=== PATIENT | female | born 1985 | race Caucasian/White ===

== ENCOUNTER 2022-08-17 16:29 | Emergency (ER) | payer BC, SELFPAY ==
[2022-08-17 16:34] VITALS: BP 120/75; PULSE 72; RESP 16; TEMP 35.8; O2SAT 98; BMI 29.8
[2022-08-17 18:11] VITALS: BP 128/95; O2SAT 98
--- NOTE | 2022-08-17 18:17 | CRLHL7_ITS ---
For Patients: As a result of the Century Cures Act, medical imaging exams and procedure reports are released immediately into your electronic medical record. You may view this report before your referring provider. If you have questions, please contact your health care provider. INDICATION: Lower back pain for 1 month. TECHNIQUE: CT lumbar spine without contrast. COMPARISON: None available. FINDINGS: Vertebrae: Mild age-indeterminate anterior wedge compression fracture of L1. Mild multilevel endplate degenerative changes. No evidence of traumatic malalignment. Discs and facet joints: Mild broad-based disc bulges at L3-L4, L4-L5, and L5-S1, results in mild central canal stenosis. Anatomic alignment of the bilateral facet joints. Extraspinal findings: Cholecystectomy. Duplicated IVC is noted. Normal appendix. IMPRESSION: 1. Age-indeterminate mild anterior wedge compression fracture of L1. 2. Mild broad-based disc bulges at L3-L4, L4-L5, and L5-S1, results in mild central canal stenosis. Please note that all CT scans at this facility use dose modulation, iterative reconstruction, and/or weight-based dosing when appropriate to reduce radiation dose to as low as reasonably achievable. Dictated by Anca Ricketts MD @ 08/17/2022 7:06:00 PM (Electronically Signed)
--- NOTE | 2022-08-17 18:28 | ED_ITS ---
HPI - General Adult General Date Seen: 08/17/22 Chief complaint: Back Injury/Pain Stated complaint: Really bad low back pain Time Seen by Provider: 08/17/22 18:07 Source: patient History of Present Illness HPI narrative: Patient is a 37-year-old woman who comes in for evaluation of low back pain which she says started about a month ago. She says she just woke up with it 1 day. It has been persistent since then, although she says she has days where her back does not hurt. She denies any injury. It really does not hurt any worse with specific movements, but it does feel better sitting than walking around. She says that she wakes up with moderate to severe pain every morning, she takes ibuprofen and Tylenol every morning. It feels a little bit better during the day but by nighttime she says it is severe again. It does not wake her up overnight however. She was seen once in urgent care and she says they told her it was probably a tailbone injury, but she denies any history of trauma. It is not really her tailbone area that is hurting, it is just above that in the low lumbar region. She denies any radiating pain. She has not had any abdominal pain, nausea, vomiting, fevers, or night sweats. She does note that she has lost some weight unintentionally, she says she is down a size and other people have told her they have noticed weight loss. She says she has a little ?paranoid because her aunt had back pain and was subsequently diagnosed with lymphoma. Related Data Home Medications Medication Instructions Recorded Confirmed No Known Home Medications 08/17/22 08/17/22 Allergies Allergy/AdvReac Type Severity Reaction Status Date / Time nitrofurantoin Allergy Mild hands and Verified 08/17/22 16:39 [From Macrobid] feet itchy and painful Review of Systems Status of ROS: Reports: 10 or more systems reviewed and unremarkable except as noted in History and below and 6 or more systems reviewed and unremarkable except as noted in History and below PFSH PFS Social History Smoking Status: Current every day smoker Do you use any of these nicotine containing products: None How often do you have a drink containing alcohol: never How often do you have six or more drinks on one occasion: Never AUDIT-C Alcohol total score: 0 Non-prescribed substance use: denies use Exam Narrative: Exam Narrative: Vital signs as noted above. In general, an alert, well-appearing patient. Head: Normocephalic, atraumatic. Eyes: Pupils are equal reactive. Extraocular movements are full. Conjunctivae are normal. ENT: Mucous membranes are moist. Throat is normal. Neck: Supple without lymphadenopathy. Heart: Regular rate and rhythm. No murmur or rub. Lungs: Clear bilaterally. No increased work of breathing, crackles or wheezes. Abdomen: Soft and nontender. No organomegaly. Back: Nontender to palpation. Extremities: Well perfused. No edema. No calf tenderness. Pulses intact. Neurologic: Patient is alert and oriented to person and place. Speech is f luent. Face is symmetric. Moves all extremities equally. Affect: Normal. Skin: Warm and dry. Well perfused. Const: Vital Signs, click to edit/add: Vital Signs - 24 hr 08/17/22 16:34 08/17/22 18:11 08/17/22 19:27 Temperature 96.5 F L Pulse Rate [Right Pulse Oximeter] 72 75 Respiratory Rate 16 Blood Pressure [Ri ght Upper Arm] 120/75 128/95 H 132/87 Pulse Oximetry 98 98 98 Oxygen Delivery Me thod Room Air Room Air Room Air Documenting provider has reviewed patient's vital signs: yes Course Course Hospital Course: Patient's exam is benign. Given duration of symptoms, reported weight loss and her concerns regarding her family history, I have elected to do a CT scan to rule out any suspicious bony lesions. Have discussed with her in the absence of findings on CT, this certainly could just be benign low back pain. It does not sound radicular at all, my suspicion for disc herniation is rather low, certainly nothing to suggest an infectious process. CT read by Radiology as follows: 1. Age-indeterminate mild anterior wedge compression fracture of L1. 2. Mild broad-based disc bulges at L3-L4, L4-L5, and L5-S1, results in mild central canal stenosis. Patient does say that she had an MRI couple of years ago and had disc bulges at that time, hard to know whether these are entirely stable but I doubt these are causing her symptoms. The compression fracture at L1 is age determinate and I have discussed with her that it is certainly possible this is the cause of her symptoms but without knowing when this occurred it is impossible to know for sure. Nonetheless, I have reassured her there is nothing on CT to suggest a more ominous cause for her back pain. For now she can continue with ibuprofen and Tylenol. Given the compression fracture I did recommend that she follow up with her primary doctor for recheck, discussion of further options for pain management, and to see whether not she needs any evaluation given compression fracture at a relatively young age in the absence of trauma. Vital Signs Vital signs: Initial Vital Signs Temperature 96.5 F L 08/17/22 16:34 Temperature Source Temporal Artery Scan 08/17/22 16:34 Pulse Rate 72 08/17/22 16:34 Respiratory Rate 16 08/17/22 16:34 Blood Pressure 120/75 08/17/22 16:34 Blood Pressure Mean 90 08/17/22 16:34 Blood Pressure Position Sitting 08/17/22 16:34 Pulse Oximetry 98 08/17/22 16:34 Oxygen Delivery Method 08/17/22 16:34 Vital Signs Temperature 96.5 F L 08/17/22 16:34 Pulse Rate 72 08/17/22 16:34 Respiratory Rate 16 08/17/22 16:34 Blood Pressure 120/75 08/17/22 16:34 Pulse Oximetry 98 08/17/22 16:34 Oxygen Delivery Method 08/17/22 16:34 Temperature 96.5 F L 08/17/22 16:34 Pulse Rate 75 08/17/22 19:27 Respiratory Rate 16 08/17/22 16:34 Blood Pressure 132/87 08/17/22 19:27 Pulse Oximetry 98 08/17/22 19:27 Oxygen Delivery Method 08/17/22 19:27 Discharge Plan Discharge Clinical Impression: Closed wedge compression fracture of L1 vertebra, Back pain Patient Disposition: Home, Self-Care Condition: Stable Instructions: Vertebral Compression Fracture (ED), Back Pain (ED) Additional Instructions: Recommend follow-up with primary care to discuss pain management options as well as any further evaluation needed. Ibuprofen 400 mg plus Tylenol 1000 mg 3 times daily as needed for pain. Ice as needed. Prescriptions: No Action No Known Home Medications Follow Up/Referrals: Brenda Belle PA-C [Primary Care Provider] - Stand Alone Forms: [employer] Info Instructions
[2022-08-17 19:27] VITALS: BP 132/87; PULSE 75; O2SAT 98
== END 2022-08-17 19:37 | disposition home or self-care (01) ==
PROVIDERS: Emergency Provider Emergency Medicine; PCP Physician Assistant
DX: S32.010A Wedge compression fracture of first lumbar vertebra, initial encounter for closed fracture (principal)
CPT/HCPCS: 72131; 99283; 99284

== ENCOUNTER 2023-09-13 08:29 | Emergency (ER) | payer BC, SELFPAY ==
[2023-09-13 08:35] VITALS: BP 124/82; PULSE 82; RESP 18; TEMP 36.7; O2SAT 98; BMI 27.4
[2023-09-13 08:58] LABS: Appearance Urine Cloudy (Clear); Bilirubin Urine Negative (Negative); Blood Urine 2+ (Negative); Color Urine Light yellow (Yellow); Glucose Urine Negative (Negative); Ketones Urine Negative (Negative); Leukocyte Esterase Urine 3+ (Negative); Nitrite Urine Positive (Negative); Protein Urine Negative (Negative); Urobilinogen Urine 0.2 (0.2-1.0)
--- NOTE | 2023-09-13 09:07 | ED_ITS ---
HPI - Back Pain/Injury General Date Seen: 09/13/23 Chief Complaint: Back Injury/Pain Stated Complaint: back pain Time Seen by Provider: 09/13/23 08:43 Source: patient Mode of arrival: ambulatory Limitations: no limitations History of Present Illness HPI Narrative: Patient is a 38-year-old female presents here with a history of left-sided back pain, she has had this now for approximately 4-6 hours, she has also with this has frequency of urination dysuria and a bit of a foul smell. Weeks ago she was treated for group B strep UTI, and does have a history in the past of ESBL up but has not had this for quite some time. She says her symptoms are characteristic of her UTIs in the past, she denies any fevers or chills but did take both ibuprofen and Tylenol at home. He describes no radiation of the discomfort to her front, does not go down her leg, no history of falls or injury she was last evaluated for back pain here in the early part of August. With the CT that showed a slight possibly old compression deformity. Of her lumbar spine MD elicited complaint: back pain Pertinent past history: prior back pain Onset (ago): hour(s) Timing: constant Severity: moderate Similar Symptoms Previously: Yes Quality: sharp and dull Location: lumbar spine and left flank Exacerbating factors: none Relieving factors: none Associated symptoms: increased urinary urgency and increased urinary frequency Treatments prior to arrival: NSAIDS and acetaminophen Work related injury: No Related Data Home Medications Medication Instructions Recorded Confirmed albuterol sulfate 90 mcg/actuation 2 puff inhalation Q4-6H wheezing 09/13/23 09/13/23 aerosol inhaler (Ventolin HFA) Previous Rx's Medication Instructions Recorded cephalexin 500 mg capsule 500 mg PO TID #30 caps 09/13/23 Allergies Allergy/AdvReac Type Severity Reaction Status Date / Time nitrofurantoin Allergy Mild hands and Verified 09/13/23 08:40 [From Macrobid] feet itchy and painful Review of Systems Status of ROS: Reports: 10 or more systems reviewed and unremarkable except as noted in History and below [facility] Social History Smoking Status: Current every day smoker Do you use any of these nicotine containing products: None How often do you have a drink containing alcohol: never How often do you have six or more drinks on one occasion: Never AUDIT-C Alcohol total score: 0 Non-prescribed substance use: denies use Exam Narrative: Exam Narrative: She is seen in room 1 she presents with her young son. She is rubbing her left flank region. Pupils are equal round reactive to light there is no scleral icterus redness or TMs are normal oropharynx normal her chest is clear heart sounds are normal her abdomen is entirely benign and scaphoid there is no guarding no organomegaly noted, she has some mild tenderness over her left flank region there is no scoliosis, no midline tenderness noted of her spine on palpation percussion. She is able to forward flex and touch her toes her backward extension lateral flexion rotation are all normal and within normal limits SLR is are negative bilaterally. Skin reveals no petechiae rashes, she does have what appears to be a birthmark on her lower spine Const: Vital Signs, click to edit/add: Vital Signs - 24 hr 09/13/23 08:35 Temperature 98.0 F Pulse Rate [Right Pulse Oximeter] 82 Respiratory Rate 18 Blood Pressure [Ri ght Upper Arm] 124/82 Pulse Oximetry 98 Oxygen Delivery Me thod Room Air Course Course ED Course: Discussed with the patient, that I think she has some early pyelonephritis, given her positive urine, she was recently group B strep positive, I think treatment with Rocephin along with Keflex would be appropriate, waiting for culture results to come back, went over signs and symptoms of worsening she was comfortable with this. Vital Signs Vital signs: Initial Vital Signs Temperature 98.0 F 09/13/23 08:35 Temperature Source Temporal Artery Scan 09/13/23 08:35 Pulse Rate 82 09/13/23 08:35 Respiratory Rate 18 09/13/23 08:35 Blood Pressure 124/82 09/13/23 08:35 Blood Pressure Mean 96 09/13/23 08:35 Blood Pressure Position Sitting 09/13/23 08:35 Pulse Oximetry 98 09/13/23 08:35 Oxygen Delivery Method Room Air 09/13/23 08:35 Vital Signs Temperature 98.0 F 09/13/23 08:35 Pulse Rate 82 09/13/23 08:35 Respiratory Rate 18 09/13/23 08:35 Blood Pressure 124/82 09/13/23 08:35 Pulse Oximetry 98 09/13/23 08:35 Oxygen Delivery Method Room Air 09/13/23 08:35 Temperature 98.0 F 09/13/23 08:35 Pulse Rate 82 09/13/23 08:35 Respiratory Rate 18 09/13/23 08:35 Blood Pressure 124/82 09/13/23 08:35 Pulse Oximetry 98 09/13/23 08:35 Oxygen Delivery Method Room Air 09/13/23 08:35 Medications Administered Medications: Discontinued Medications Generic Name Dose Route Start Last Admin Trade Name Amy PRN Reason Stop Dose Admin Ceftriaxone Sodium 1 gm 09/13/23 09:37 09/13/23 09:49 Ceftriaxone 1 Gm Vial IM 09/13/23 09:38 1 gm ONCE ONE Administration Lidocaine HCl 2.1 ml 09/13/23 09:37 09/13/23 09:49 Lidocaine 1% 5 Ml (Pf) 5 Ml Vial IM 2.1 ml DIRECTED PRN Administration pyelonephritis MDM - Back Pain/Injury MDM Narrative Medical decision making narrative: Life-threatening differential diagnosis considered include: Cauda equina an epidural abscess, other differential diagnosis considered includes sprain, contusion, nerve root entrapment, radiculopathy, muscle spasm, urolithiasis, lumbar fracture, pyelonephritis, appendicitis, biliary colic, as well as other etiologies. The patient denies saddle anesthesia bowel or bladder incontinence or lower extremity weakness, recent weight loss, or history of malignancy. Medical Records Attestation: I reviewed the patient's medical records. Lab Data Attestation: I reviewed the patient's lab results. Labs: Lab Results 09/13/23 Range/Units Unknown Urine Color Light yellow (Yellow) Urine Appearance Cloudy A (Clear) Urine pH 6.0 (5.0-8.5) Ur Specific [place] 1.010 (1.000-1.030) Urine Protein Negative (Negative) Urine Glucose (UA) Negative (Negative) Urine Ketones Negative (Negative) Urine Blood 2+ A (Negative) Urine Nitrite Positive A (Negative) Urine Bilirubin Negative (Negative) Urine Urobilinogen 0.2 (0.2-1.0) Ur Leukocyte Esterase 3+ A (Negative) Urine RBC 0-2 (0-2) Urine WBC 25-50 A (0-5) Urine WBC Clumps None (None) Ur Squamous Epith Cells Few (None-Few) Urine Bacteria Many A (None) Discharge Plan Discharge Clinical Impression: Pyelonephritis Patient Disposition: Home w/ Parent or Adult Condition: Stable Instructions: Kidney Infection (ED) Additional Instructions: We will give you dosage of medication here. And then we will put you on a similar medications the round before. For group B strep. Increasing fevers chills nausea vomiting or back pain need to come back and be seen, continue with Tylenol ibuprofen, and I would recommend off work today. note for work Activity Level: Light activity Prescriptions: New cephalexin 500 mg capsule 500 mg PO TID Qty: 30 0RF No Action albuterol sulfate [Ventolin HFA] 90 mcg/actuation HFA aerosol inhaler 2 puff INHALATION Q4-6H Follow Up/Referrals: Brenda Belle PA-C [Primary Care Provider] - Stand Alone Forms: [employer] Plan Info Instructions
[2023-09-13 09:14] LABS: RBC Urine 0-2 (0-2)
[2023-09-13 09:15] LABS: Bacteria Urine Many; Squamous Epithelial Cell Urine Few (None-Few); WBC Urine 25-50 (0-5)
[2023-09-13] MEDS: cefTRIAXone 1 GM VIAL IM (09:49)
[2023-09-13] MEDS: LIDOCAINE 1% 5 ml (pf) 5 ML VIAL 2.1 ML IM (09:49)
== END 2023-09-13 10:10 | disposition home or self-care (01) ==
PROVIDERS: Emergency Provider Family Medicine; PCP Physician Assistant
DX: N12 Tubulo-interstitial nephritis, not specified as acute or chronic (principal)
CPT/HCPCS: 81003; 81015; 87086; 87186; 96372; 99283; 99284; J0696

== ENCOUNTER 2025-06-19 19:18 | Inpatient (IN) | payer MEDICAID, SELFPAY ==
--- OUTSIDE RECORDS SUMMARY | 2025-06-19 19:20 | XMS_ITS | Clinical Summary ---
Author Organization [facility] Address [address] [place] [address] Care Team Providers Care Visiting Nurse Name Role Phone Unavailable Primary Care Provider Unavailabl e Source Comments Patient records contain information from all sites at [facility]. For routine questions regarding patient records, call [phone] during business hours, M-F 8:00 AM - 5:00 PM Central Time. Record requests for emergency care only can be directed to [phone] at any time.[facility] Medications ascorbic acid, vitamin C, (Vitamin C) 1,000 mg tablet Take 1 tablet (1,000 mg total) by mouth daily. 30 tablet 2 12/28/2024 Active methenamine (Hiprex) 1 gram tabletIndication s:Cystitis Unspecified Without Hematuria Take 1 tablet (1 g total) by mouth 2 (two) times a day. 60 tablet 2 12/28/2024 Active Active Problems Problem Noted Date Diagnosed Date Asthma Chronic Mild 01/02/2014 Overview (12/29/2016): Asthma Chronic Mild Immunizations Immunization Administration Dates Next Due H1N1 All Forms 06/05/2009 Influenza, Unspecified 05/25/2014,04/26/2009, Tdap 05/25/2014,03/16/2012 Family History Medical History Relation Name Comments Diabetes Mother 1 Diabetes Mother 2 Relation Name Status Comments Mother 1 Alive Mother 2 Social History Tobacco Use Types Packs/Day Years Used Date Smoking Tobacco: Every Day Cigarettes 1 24.7 Started: 09/28/2000 Smokeless Tobacco: Never Alcohol Use Standard Drinks/Week Comments Not Currently 0 (1 standard drink = 0.6 oz pur e alcohol) [facility] Utilities Answer Date Recorded In the past 12 months has th e electric, gas, oil, or water company threatened to shut off services in your home? Patient declined 12/28/2024 Hunger Vital Sign Answer Date Recorded Within the past 12 months, y ou worried that your food would run out before you got the money to buy more. Patient declined Within the past 12 months, t he food you bought just didn't last and you didn't have money to get more. Patient declined PRAPARE - Transportation Answer Date Re corded In the past 12 months, has l ack of transportation kept you from medical appointments or from getting medications? No 12/08 In the past 12 months, has l ack of transportation kept you from meetings, work, or from getting things needed for daily living? No 12/28/2024 Housing Stability Answer Date Recorded What is your living situation today? I have a [facility] place to live 12/28/2024 Comments Unknown Sex and Gender Information Value Date Recorded Sex Assigned at Female 12/28/2024 10:44 AM CDT Legal Sex Female 9:02 AM [employer] Gender Identity Female 12/28/2024 10:44 AM CDT Sexual Orientation Straight 12/28/2024 10 :44 AM CDT Last Filed Vital Signs Vital Sign Reading Time Taken Comments Blood Pressure 124/80 10/11/2014 9:33 AM [employer] Pulse 80 10/11/2014 9:33 AM [employer] Temperature - - Respiratory Rate 16 10/11/2014 9:33 AM [employer] Oxygen Saturation - - Inhaled Oxygen Concentration - - Weight 89.6 kg (197 lb 8.5 oz) 10/11/2014 9:33 A M [employer] Height 169 cm (5' 6.54) 10/11/2014 9:33 AM [employer] Body Mass Index 31.37 10/11/2014 9:33 AM [employer] Plan of Treatment Health Maintenance Due Date Last Done Comments Hepatitis C Screening 1984 Lipid (Cholesterol) Screening 1984 Mammogram 1984 Hepatitis B Vaccines (1 of 3 - 19+ 3-dose series) 2003 Pneumococcal vaccine (0-49 years) (1 of 2 - PCV) 2003 HPV Vaccines (2 - 3-dose series) 07/21/2011 06/23/2011 Cervical/Vaginal Cancer Screening 12/03/2023 12/02/2020, 03/21/2012 DTaP,Tdap,and Td Vaccines (3 - Td or Tdap) 05/25/2024 05/25/2014, 03/16/2012 Depression Screening (Annual PHQ-2) 08/09/2024 Asthma Action Plan 12/22/2024 04/23/2014 Asthma Control Test Questionnaire 12/22/2024 Asthma Management/Exacerbation Questionnaire (AMQ/AEQ) 12/22/2024 COVID-19 Vaccine ( season) 2025 06/18/2022, 05/21/2021, 08/27/2020, Additional history exists Influenza Vaccine (#1) 2025 , 06/24/2023, 06/18/2022, Additional history exists Tobacco Cessation counseling 2025 2024 HIV Screening Completed 12/28/2013 IPV Vaccines Aged Out No longer eligi ble based on patient's age to complete this topic Procedures Procedure Name Priority Date/Time Associated Diagnosis Comments HIV-1/-2 AG AND AB SCREEN Routine 12/28/2013 10:56 AM CDT from Last 3 Months or Most Recently Relevant to Health Maintenance Results * HIV-1/-2 Ag and Ab Screen (12/28/2013 10:56 AM CDT) HIV-1/-2 Antibody Negative Negative POWERCHART Comment: Negative result does not rule out HIV infection. If acute HIV infection is suspected in a high-risk individual, submit plasma specimen for HIV-1 RNA quantification test (HIVQU) and/or HIV-2 DNA/RNA test (FHV2Q). Test Performed by: [facility] [place] [address] Conveyor Installer: Roman Brown III, M.D. Blood 12/28/2013 10:5 6 AM CDT Anne Shafer M.D. LAB MICROBIOLOGY - BL OOD ORDERABLES Final Result POWERCHART from Last 3 Months or Most Recently Relevant to Health Maintenance Insurance [place]
--- OUTSIDE RECORDS SUMMARY | 2025-06-19 19:20 | XMS_ITS | Clinical Summary ---
Author Organization [facility] Address [address] [place] [id number] Care Team Providers Care Mobility Architect Manager Name Role Phone Bisi Moy PsyD, CHIOMA Unavailable Felicitas Nelson Unavailable [phone] Jaydon Goyal MD Primary Care P rovider Allergies Active Allergy Reactions Criticality Noted Date Comments Venlafaxine Anxiety 03/28/2025 Ertapenem Rash 03/04/2025 Nitrofurantoin Rash High 06/21/2012 Hands and feet, This reaction did not happen in when she took it. Had reaction 05/2016. Reaction in 2022, Diffuse body hives 2023 Sertraline Sedation 03/28/2025 Medications nebulizer accessories kitIndications:W heezing For home use. Length of need: 99 needs tubing and mask 3 Kit 04/02/20 21 Active Airs Disposable Nebulizer misc DIRECTED FOR HOME USE 04/04/20 21 Active albuterol HFA (PRO-AIR; VENTOLIN; PROVENTIL) 90 mcg/actuation inhalerIndicatio ns:Mild intermittent asthma without complication (HC) Inhale 1-2 Puffs by mouth every 4 hours if needed for Shortness Of Breath or Wheezing. 18 g 11 5 2:50 PM CDT 01/27/20 25 Active ascorbic acid (vitamin C) (VITAMIN C) 1,000 mg tablet Take 1,000 mg by mouth once daily. Active methenamine hippurate (HIPREX) 1 gram tablet Take 1 g by mouth two times daily. Active nicotine 4 mg lozengeIndicatio ns:Tobacco dependence Place 1 Lozenge (4 mg) in mouth, between cheek & gum every hour while awake as needed for Nicotine Craving. Max 20 lozenges per day 576 Each 2 03/13/20 25 Active Cranberry Extract (Cranberry Concentrate) 500 mg capIndications:U TI due to extended-spectru m beta lactamase (ESBL) producing Escherichia coli Take 500 mg by mouth two times daily. 60 Capsule 5 03/23/20 25 Active FLUoxetine (PROZAC) 40 mg capsuleIndicatio ns:Anxiety and depression Take 1 Capsule (40 mg) by mouth once daily in the morning. 90 Capsule 3 03/28/20 25 Active hydrOXYzine HCL (ATARAX) 25 mg tabletIndication s:Anxiety and depression Take 1 Tablet (25 mg) by mouth at bedtime if needed for Itching. 25 Tablet 03/28/20 25 Active valACYclovir (VALTREX) 1 gram tabletIndication s:Herpes simplex virus (HSV) infection Take 2 tablets by mouth twice daily for 1 day - each outbreak 30 Tablet 5 2:50 PM CDT 05/16/20 25 Active oxybutynin (DITROPAN) 5 mg tabletIndication s:Acute cystitis without hematuria Take 1 Tablet (5 mg) by mouth every 8 hours if needed (Bladder Spasms). 12 Tablet 05/28/20 25 Active oxyCODONE (ROXICODONE) 5 mg immediate release tabletIndication s:Acute cystitis without hematuria,ESBL (extended spectrum beta-lactamase) producing bacteria infection Take 1 Tablet (5 mg) by mouth every 4 hours if needed for Pain. 6 Tablet 05/28/20 25 Active ketorolac 10 mg tabletIndication s:Urinary symptom or sign Take 1 Tablet (10 mg) by mouth every 6 hours if needed for Pain. Maximum of 40 mg in 24 hours. Do not exceed 5 days use 15 Tablet 06/04/20 25 Active nicotine 21 mg/24 hr (NICODERM; HABITROL) 21 mg/24 hr patchIndications :Tobacco dependence Apply 1 Patch on dry, clean, hairless skin once daily. 14 Patch 11 03/13/20 25 025 Discontinued( Pharmacist change per medication history (E-cancel not sent)) trimethoprim-sul famethoxazole 160-800 mg tabIndications:B ladder infection, chronic Take 1 Tablet by mouth two times daily for 21 days. 42 Tablet 05/13/20 25 025 Discontinued( Pharmacist change per medication history (E-cancel not sent)) trimethoprim-sul famethoxazole 160-800 mg tab Take 1 Tablet by mouth two times daily. For 21 days 05/13/20 25 025 Discontinued( *Med complete/Fawn men complete/Leve l of care change) fosfomycin tromethamine (MONUROL) 3 gram pack packetIndication s:Acute cystitis without hematuria,ESBL (extended spectrum beta-lactamase) producing bacteria infection Mix 1 Packet (3 g) in liquid then take by mouth one time for 1 dose. 1 Packet 05/30/20 025 Discontinued( *Med complete/Fawn men complete/Leve l of care change) trimethoprim-sul famethoxazole (Bactrim DS) 160-800 mg tabIndications:A cute cystitis without hematuria Take 1 Tablet by mouth two times daily for 5 days. 10 Tablet 06/07/20 025 Active Problems Problem Noted Date Diagnosed Date Cystitis with hematuria 05/26/2025 Ovarian mass 04/12/2025 Closed wedge compression fracture of L1 vertebra 04/12/2025 Frequent UTI 12/29/2024 Overview (12/29/2024): Has seen infectious disease who recommended no test of cure. 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 07/09/2004 Overview (12/16/2020): LEEP 08/07/2004: Margins, Ecto: Low grade involvemt, Endo: Free 04/2006: NIL 10/2006 NIL 04/2007: NIL 02/2008: NIL 12/2009: NIL 03/2012: NIL 03/2016: NIL 11/2020: NIL/HPV Negative Plan: Pap and HPV q 3 yr x 25 years Resolved Problems Problem Noted Date Diagnosed Date Resolved Date Acute cystitis without hematuria 03/20/2025 04/12/2025 Hypokalemia 03/20/2025 04/12/2025 Pyelonephritis 03/20/2025 04/12/2025 UTI due to extended-spectrum beta lactamase (ESBL) producing Escherichia coli 03/06/20252024 Hypokalemia 03/06/2025 04/12/2025 Severe sepsis 06/10/2024 07/20/2024 Cellulitis of left lower extremity 06/10/2024 04/12/2025 Adjustment disorder with mix ed anxiety and depressed mood 12/15/2017 07/20/2024 Depressive disorder 12/15/2017 12/03/19 Anxiety disorder 12/15/2017 12/02/2020 Onychomycosis 10/25/2014 07/20/2024 Pain in shoulder 10/25/2014 12/02/2020 07/24/2014 12/02/2020 Gestational diabetes mellitus, class A2 07/24/2014 12/02/2020 URI (upper respiratory infection) 07/24/2014 08/23/2015 Rib pain on left side 07/24/20142020 Migraine, unspecified, witho ut mention of intractable migraine without mention of status migrainosus 04/21/2007 12/02/2020 Cholelithiasis 03/16/2012 Genital warts 12/02/2020 Infection due to ESBL-produc ing Escherichia coli 04/12/2025 Overview (11/27/2016): 02/2016: She illustrates that antibiotics bring forth resistance reinforcing the impulse to not treat asymptomatic or tolerable urinary tract infection. For outpatients, quinolone sensitive acute pyelonephritis can be treated for 5-7 days but trimethoprim-sulfamethoxazole DS or betalactams should go 14 days. Inpatient durations are less clear but parenteral treatment shortens the beta lactams to 7 days. Lesser forms of urinary tract infection can be treated for shorter periods, perhaps 3 days, if there's an effective antibiotic. For Ms. Louie, it's way complicated by the lack of a by mouth drug. Tommy Ramirez MD Infectious Diseases & Internal Medicine Has used fosfomycin in the past 3 gm by mouth daily x 3 days. Yash Urrutia D.O., Family Medicine .................... 11/27/2016 11:51 AM Encounters Date Type Department Care Team Description 06/17/2025 4:05 PM GAUGE AND WEIGH MACHINE ADJUSTER - 06/17/2025 6:41 PM GAUGE AND WEIGH MACHINE ADJUSTER Emergency [facility] [address] [place] [address] Obdulia Doran PA Acute UTI (Primary Dx); History of ESBL E. coli infection Discharge Disposition: Home Self Care 06/17/2025 Travel 06/14/2025 E-Visit [facility] [address] [place] [address] Jaydon Goyal MD Leave 06/05/2025 E-Consult [facility] [address] [facility] [address] [place] [address] Joanna Avery MD 06/04/2025 2:00 PM CDT - 06/04/2025 11:59 PM CDT Hospital Encounter [facility] [address] [place] [address] Felicitas Nelson PA Urinary symptom or sign 06/04/2025 12:00 PM CDT Office Visit [facility] [address] [place] [address] Felicitas Nelson PA Follow Up (Urinary symptoms) 06/04/[address] [address] Emmy Brown NP Establish Care 06/04/2025 Travel 06/04/2025 Orders Only [address] [address] Felicitas Nelson PA <No scans attached> 05/31/2025 11:15 AM CDT Office Visit [facility] [address] [place] [address] Jaydon Goyal MD Hospital F/U; Serious Illness Conversation 05/30/2025 8:36 AM CDT - 05/30/2025 11:59 PM CDT Hospital Encounter [facility] [address] [place] [address] Jaydon Farnsworth MD Frequent UTI; History of ESBL E. coli infection 05/30/2025 Travel 05/29/2025 Patient Outreach [facility] [address] [facility] [address] Marsha Friedman, RN Primary RN Care Management; Hospital F/U ([facility] 78) 05/26/2025 5:19 PM CDT - 05/28/2025 11:20 AM CDT Hospital Encounter [facility] [address] [facility] [place] [address] Belen Argueta, Hospitalist, [facility] Md Lamb, Rebecca Salazar, VIELKA Hooker, Niecy Huerta, MD Malcolm, DO Joyce Davison, MARIA A Villalba Acute cystitis without hematuria (Primary Dx); ESBL (extended spectrum beta-lactamase) producing bacteria infection Discharge Disposition: Home Self Care 05/26/2025 Travel 05/25/2025 Telephone [facility] [address] [place] [address] Felicitas Nelson PA 05/23/2025 4:00 PM CDT Orders Only [facility] [address] [facility] [place] [address] Jessica Royal <No scans attached> 05/23/2025 12:00 PM CDT Phone Office Visit [facility] [address] [place] [address] Felicitas Nelson PA Urinary Problem 05/23/2025 Travel 05/16/2025 2:15 PM CDT Telemedicine [facility] [address] [place] [address] Emmy Landaverde NP Telehealth; Medication Management 05/14/2025 Social Work Encounter [facility] [address] [place] [address] Mini Goldsmith LISW 05/13/2025 Orders Only [facility] [address] [place] [address] Jaydon Farnsworth MD <No scans attached> 05/10/2025 11:15 AM CDT Office Visit [facility] [address] [place] [address] Jaydon Farnsworth MD Consult (UTI) 05/10/2025 Travel 05/01/2025 Patient Outreach [facility] Care Management Team Medical Case Management Ambulatory [address] [place] [address] Abbi Jane Care Coordination 04/25/2025 10:50 AM CDT Office Visit [facility] [address] [place] [address] Jaydon Goyal MD Depression (Follow up); Form (FMLA); Dysuria (Hurts, frequent, ) 04/25/2025 Travel 04/13/2025 Patient Outreach [facility] Care Management Team Medical Case Management Ambulatory [address] [place] [address] Abbi Jane Care Coordination 04/12/2025 9:10 AM CDT Office Visit [facility] [address] [place] [address] Jaydon Goyal MD [facility] (Mental health); UTI (pressure in the pelvic area, frequent urination, pain ) 04/12/2025 Patient Outreach [facility] Care Management Team Medical Case Management Ambulatory [address] [place] [address] Abbi Jane Care Coordination 04/12/2025 Travel 04/02/2025 Telephone [facility] [address] [place] [address] Cintia Stone NP Form 03/28/2025 11:30 AM CDT Office Visit [facility] [address] [place] [address] Cintia Stone, VIELKA Hospital F/U (DOD 03/23 - UTI. Patient states she's feeling better since being discharged. Denies any burning with urination, urinary frequency, and lower abdominal pain.); Anxiety (Patient states her anxiety has gotten worse over the past few months, dealing with some medical issues recently.) 03/28/2025 Travel 03/26/2025 Patient Outreach [facility] [address] [place] [address] Kimmy Antoine RN Primary RN Care Management (Hospital DC: 03/23/25/LACE: 79/UTI due to ESBL ); Hospital F/U 03/20/2025 3:43 PM CDT - 03/23/2025 2:40 PM CDT Hospital Encounter [facility] [address] [place] [address] Yash Urrutia DO Lapham, Renae Ann, VIELKA Ovarian cyst, right (Primary Dx); UTI due to extended-spectrum beta lactamase (ESBL) producing Escherichia coli Discharge Disposition: Home Self Care 03/20/2025 1:00 PM CDT Office Visit [facility] [address] [place] [address] Julia Carroll NP Abdominal Pain; Dysuria (Left flank pain intermittent.) 03/20/2025 Travel from Last 3 Months Immunizations Immunization Administration Dates Next Due AMB Influenza, IIV3 (Age >=3 years)(Flu Clinic Only) 06/24/2010 COVID-19 vaccine (Pfizer-Bio NTech 30mcg/0.3mL) 12YO+ BIVALENT PF, MDV 06/18/2022 COVID-19 vaccine (Pfizer-Bio NTech 30mcg/0.3mL) PF, MDV 08/27/2020,08/06/2020 Hepatitis A (Adult) 08/23/2015,03/16/2012 Hepatitis B (Peds) 01/07/1998,07/09/1997, 997 Human Papilloma Virus Vaccine 06/23/2011 INFLUENZA, IIV3 PF (AGE >= 6 MO) 05/25/2024,06/11,04/26/2009 Influenza A (H1N1), Inactivated 06/05/2009 Influenza, IIV3 (Age >=3 years) 05/11/2012,07/08,05/29/2008 Influenza, IIV4 06/24/2023,,05/05/2021,2018,08/27/2017,06/09/2015 MMR 11/03/1996 Td (Age >=7 Years) 10/15/2004,11/03/1996 Tdap 05/25/2014,03/16/2012 Tuberculin (PPD) 11/13/2015,10/16/2015 Typhoid (injectable) 03/16/2012 Family History Medical History Relation Name Comments Cancer Maternal Aunt lymphoma Cancer Maternal Grandfather lung Cancer Maternal Grandmother sarcoma lung Diabetes Maternal Uncle Arthritis Mother Zhanna Louie gout Asthma Mother Zhanna Louie Diabetes Mother Zhanna Louie Hyperlipidemia Mother Zhanna Louie Thyroid Disease Mother Zhanna Louie Good Health Son 1 Good Health Son 2 Good Health Son 3 Relation Name Status Comments Brother Alive Daughter Alive Father Alive Maternal Aunt Maternal Grandfather Maternal Grandmother Maternal Uncle Mother Zhanna Louie Alive Son 1 Alive Son 2 Alive Son 3 Alive Social History Tobacco Use Types Packs/Day Years Used Date Smoking Tobacco: Every Day Cigarettes 0.6 25.9 Started: 1999 Smokeless Tobacco: Never Tobacco Cessation:Ready to Q uit: Not Asked; Counseling Given: Not Answered Comments:03/05/2025 - pt smokes a pack a day Alcohol Use Standard Drinks/Week Comments No 0 (1 standard drink = 0.6 oz pur e alcohol) PHQ-2 Answer Date Recorded PHQ-2 TOTAL SCORE 5 04/25/2025 Social Connections Answer Date Recorded Do you often feel lonely or isolated from those around you? 0 05/26/2025 Financial Resource Strain Answer Date R ecorded Difficulty of Paying Living Expenses 3 03/20/2025 Difficulty of Paying Living Expenses Not on file 03/20/2025 Food Insecurity Answer Date Recorded Do you worry your food will run out before you are able to buy more? 1 05/26/2025 Transportation Needs Answer Date Record ed Does lack of transportation keep you from medica l appointments? 1 05/26/2025 Does lack of transportation keep you from work, meetings or getting things that you need? 1 05/26/2025 Housing Stability Answer Date Recorded What is your housing situation today? 1 05/26/2025 Interpersonal Safety Answer Date Record ed Are you being hit, kicked, p ushed or yelled at (see row info)? No 06/17/2025 Interpersonal Safety Abuse 12 - 18 Not on file 06/17/2025 Interpersonal Safety Ambulatory Vulnerability No t on file 06/17/2025 Utilities Answer Date Recorded Do you have trouble paying f or utilities (for example, heat, electricity, water, phone)? 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 on file Not on file Not on file Obstetrics History Para Term AB IAB SAB Ectopic Multiple Livin g Live Births 5 4 4 0 1 0 1 0 0 4 4 Date Outcome GA Total Labor Labor/2nd/3rd Weight Sex Type Anes PTL Dilma A1 A5 Name Clin 2000 Term 38w 0d 16h 00m/ 2.66 kg (5 lb 14 oz) F Vag IV Meds N Livin g Lillya nna Cortez Flores Delivery Location:[facility] Comments:hemorrhage, n o blood transfusion 2006 SAB 2007 Term 38w 2d 16h 00m/ 2.72 kg (6 lb) M Vag Intrat hecal N Livin g 8 9 Jiovan ni Mendoz a Drevl ow Delivery Location:[facility] Comments:placental abr uption during 2nd stage 2008 Term 39w 0d 3.01 kg (6 lb 10 oz) M Vag Y Livin g Delivery Location:[facility] Comments:GDMA2 2013 Term 38w 2d 3.64 kg (8 lb 0.4 oz) M Stephan eller Delivery Location:[facility] Comments:GDM Last Filed Vital Signs Vital Sign Reading Time Taken Comments Blood Pressure 131/78 06/17/2025 6:39 PM GAUGE AND WEIGH MACHINE ADJUSTER Pulse 82 06/17/2025 6:39 PM GAUGE AND WEIGH MACHINE ADJUSTER Temperature 36.6 C (97.9 F) 06/17/2025 4:14 PM GAUGE AND WEIGH MACHINE ADJUSTER Respiratory Rate 18 06/17/2025 4:14 PM GAUGE AND WEIGH MACHINE ADJUSTER Oxygen Saturation 98% 06/17/2025 6:39 PM GAUGE AND WEIGH MACHINE ADJUSTER Inhaled Oxygen Concentration - - Weight 79.4 kg (175 lb) 06/17/2025 4:11 PM GAUGE AND WEIGH MACHINE ADJUSTER Height 170.2 cm (5' 7) 06/17/2025 4:11 PM GAUGE AND WEIGH MACHINE ADJUSTER Body Mass Index 27.41 06/17/2025 4:11 PM GAUGE AND WEIGH MACHINE ADJUSTER Plan of Treatment Upcoming Encounters Date Type Department Care Team (Late st Contact Info) Description 06/21/2025 8:00 AM GAUGE AND WEIGH MACHINE ADJUSTER Office Visit [address] [address] Alina Longo [address] [address] 07/04/2025 10:00 AM GAUGE AND WEIGH MACHINE ADJUSTER Office Visit [address] [address] Hilary Amor MD [address] [place] [address] Health Maintenance Due Date Last Done Comments Hepatitis C screening for ag e 18-79 2002 Pneumococcal series for age 6-49 (1 of 2 - PCV) 2003 HPV series for age 9-45 (2 - 3-dose series) 07/21/2011 06/23/2011 Pap test for age 21-65 12/03/2023 , 12/02/2020, 03/16/2012, Additional history exists Tetanus booster 05/25/2024 05/25/2014, 08/0 03/2012, 10/15/2004, Additional history exists Influenza Vaccine (#1) 2025 , 06/24/2023, 06/18/2022, Additional history exists BMI (ht and wt on same day) for age 18+ 12/21/2025 12/21/2024, 05/31/2024, 08/18/2022, Additional history exists Depression screening for age 12+ 04/25/2026 04/25/2025, 04/12/2025, 04/12/2025, Additional history exists RSV vaccine for adults or (1 - 1-dose 75+ series) 2059 Hepatitis B series for 19+ Completed 01/07, 07/09/1997, 06/09/1997 HIV for age 15-65 Completed 02/03/2008 Medical Devices Implanted Type Area Psychiatric Orderly Device Identifier Shelf Expiration Date Model / Serial / Lot Clip Filshie #[id number] - [id number] Implanted:Qty : 2 on 09/18/2014 by Anne Shafer MD at [facility] Bilateral: Fallopian Tube D-BABS MEDICAL [employer]OHIT 06/08/2016 [id number] / / [id number] Description:tubal ligation s ystem Procedures Procedure Name Priority Date/Time Associated Diagnosis Comments URINE CULTURE BHAVIK 06/17/2025 4:51 PM GAUGE AND WEIGH MACHINE ADJUSTER URINALYSIS MICROSCOPIC STAT 4:51 PM GAUGE AND WEIGH MACHINE ADJUSTER UA W/ SEDIMENT EXAM REFLEXED PER CRITERIA STAT 06/17/2025 4:51 PM GAUGE AND WEIGH MACHINE ADJUSTER CBC WITH AUTO DIFFERENTIAL STAT 06/17/2025 4:41 PM GAUGE AND WEIGH MACHINE ADJUSTER BASIC METABOLIC PANEL STAT 06/17/2025 4:41 PM GAUGE AND WEIGH MACHINE ADJUSTER CBC WITH AUTO DIFFERENTIAL STAT 06/17/2025 4:41 PM GAUGE AND WEIGH MACHINE ADJUSTER CBC WITH AUTO DIFFERENTIAL STAT 06/04/2025 2:38 PM CDT Urinary symptom or sign CBC WITH AUTO DIFFERENTIAL STAT 06/04/2025 2:38 PM CDT Urinary symptom or sign BASIC METABOLIC PANEL STAT 06/04/2025 2:38 PM CDT Urinary symptom or sign US RENAL AND BLADDER COMPLETE STAT 06/04/2025 2:23 PM CDT Urinary symptom or sign URINALYSIS MICROSCOPIC Routine 11:50 AM CDT Urinary symptom or sign History of ESBL E. coli infection Frequent UTI URINE CULTURE Routine 06/04/2025 11:50 AM CDT Urinary symptom or sign History of ESBL E. coli infection Frequent UTI UA W/ SEDIMENT EXAM REFLEXED PER CRITERIA Routine 06/04/2025 11:50 AM CDT Urinary symptom or sign History of ESBL E. coli infection Frequent UTI MR PELVIS WWO Routine 05/30/2025 9:31 AM CDT Frequent UTI History of ESBL E. coli infection C-REACTIVE PROTEIN Early AM 05/28/2025 5: 44 AM CDT SODIUM Early AM 05/28/2025 5:44 AM CDT WHITE BLOOD COUNT Early AM 05/28/2025 5:4 4 AM CDT MAGNESIUM Early AM 05/28/2025 5:44 AM CDT CREATININE Early AM 05/28/2025 5:44 AM CDT HEMOGLOBIN Early AM 05/28/2025 5:44 AM CDT POTASSIUM Early AM 05/28/2025 5:44 AM CDT POTASSIUM Early AM 05/27/2025 7:50 AM CDT MAGNESIUM Timed 05/27/2025 7:50 AM CDT C-REACTIVE PROTEIN Early AM 05/27/2025 7: 50 AM CDT WHITE BLOOD COUNT Early AM 05/27/2025 7:5 0 AM CDT CREATININE Early AM 05/27/2025 7:50 AM CDT SODIUM Early AM 05/27/2025 7:50 AM CDT POTASSIUM Timed 05/27/2025 2:37 AM CDT US RENAL AND BLADDER COMPLETE STAT 05/26/2025 7:44 PM CDT MAGNESIUM BHAVIK 05/26/2025 5:51 PM CDT BASIC METABOLIC PANEL STAT 05/26/2025 5:51 PM CDT CBC W PLT NO DIFF STAT 05/26/2025 5:5 1 PM CDT URINALYSIS MICROSCOPIC STAT 4:06 PM CDT Urinary symptom or sign URINE CULTURE Routine 05/23/2025 4:06 PM CDT Urinary symptom or sign UA W/ SEDIMENT EXAM REFLEXED PER CRITERIA STAT 05/23/2025 4:06 PM CDT Urinary symptom or sign URINE CULTURE Routine 05/10/2025 1:03 PM CDT Frequent UTI History of ESBL E. coli infection BASIC METABOLIC PANEL Routine 04/25/2025 12:00 PM CDT Lower urinary tract symptoms (LUTS) CBC W PLT NO DIFF Routine 04/25/2025 12: 00 PM CDT Lower urinary tract symptoms (LUTS) URINALYSIS MICROSCOPIC Routine 12:00 PM CDT Lower urinary tract symptoms (LUTS) URINE CULTURE Routine 04/25/2025 12:00 PM CDT Lower urinary tract symptoms (LUTS) URINALYSIS MACROSCOPIC - [facility] ONLY POC DIP ([facility]) Routine 04/25/2025 12:00 PM CDT Lower urinary tract symptoms (LUTS) URINALYSIS MICROSCOPIC Routine 9:20 AM CDT Pain with urination URINE CULTURE Routine 04/12/2025 9:20 AM CDT Pain with urination URINALYSIS MACROSCOPIC - [facility] ONLY POC DIP ([facility]) Routine 04/12/2025 9:20 AM CDT Pain with urination SODIUM Early AM 03/23/2025 6:03 AM CDT CREATININE Early AM 03/23/2025 6:03 AM CDT HEMOGLOBIN Early AM 03/23/2025 6:03 AM CDT WHITE BLOOD COUNT Early AM 03/23/2025 6:0 3 AM CDT POTASSIUM Early AM 03/23/2025 6:03 AM CDT POTASSIUM Early AM 03/22/2025 6:09 AM CDT MAGNESIUM Early AM 03/22/2025 6:09 AM CDT PROCALCITONIN Early AM 03/21/2025 5:46 AM CDT C-REACTIVE PROTEIN Early AM 03/21/2025 5: 46 AM CDT HEMOGLOBIN Early AM 03/21/2025 5:46 AM CDT WHITE BLOOD COUNT Early AM 03/21/2025 5:4 6 AM CDT MAGNESIUM Early AM 03/21/2025 5:46 AM CDT CREATININE Early AM 03/21/2025 5:46 AM CDT POTASSIUM Early AM 03/21/2025 5:46 AM CDT SODIUM Early AM 03/21/2025 5:46 AM CDT POTASSIUM Timed 03/20/2025 11:[address] ABDOMEN PELVIS STONE PROTOCOL WO STAT 03/20/2025 4:16 PM CDT MAGNESIUM BHAVIK 03/20/2025 4:15 PM CDT RED CELL MORPHOLOGY Timed 03/20/2025 4 :15 PM CDT PLATELET ESTIMATE Timed 03/20/2025 4:1 5 PM CDT MANUAL DIFFERENTIAL Timed 03/20/2025 4 :15 PM CDT CBC WITH AUTO DIFFERENTIAL Today 03/20/2025 4:15 PM CDT COMP METABOLIC PANEL Today 03/20/2025 4:15 PM CDT CBC WITH AUTO DIFFERENTIAL Today 03/20/2025 4:15 PM CDT C-REACTIVE PROTEIN Timed 03/20/2025 4: 15 PM CDT URINE BHAVIK 03/20/2025 1:12 PM CDT URINE CULTURE BHAVIK 03/20/2025 1:12 PM CDT URINALYSIS MICROSCOPIC STAT 1:12 PM CDT Urinary symptom or sign URINE CULTURE STAT 03/20/2025 1:12 PM CDT Urinary symptom or sign UA W/ SEDIMENT EXAM REFLEXED PER CRITERIA STAT 03/20/2025 1:12 PM CDT Urinary symptom or sign FUEL SYSTEM MAINTENANCE SUPERVISOR THIN PREP PAP SCREEN IMAGED Routine 12/02/2020 11:02 AM CDT Pap smear for cervical cancer screening ANTI HIV 1/2 Routine 02/03/2008 4:35 PM CDT Supervision Of Other Normal (Hc) from Last 3 Months or Most Recently Relevant to Health Maintenance Results * (ABNORMAL) URINALYSIS MICROSCOPIC (06/17/2025 4:51 PM GAUGE AND WEIGH MACHINE ADJUSTER) Only the most recent of6 resultswithin the time period is included. RBC 3-5(A) 0-2, None Seen /HPF 06/17/2025 5:22 PM GAUGE AND WEIGH MACHINE ADJUSTER [facility] WBC 11-25(A) 0-2, 3-5, None Seen /HPF 06/17/2025 5:22 PM GAUGE AND WEIGH MACHINE ADJUSTER [facility] LABORATORY BACTERIA Many(A) None Seen, Rare, Few Bacteria/ HPF 06/17/2025 5:22 PM [employer] ADJUSTER [facility] EPITHELIAL CELLS Moderate(A ) None Seen, Few Epi/HPF 06/17/2025 5:22 PM [employer] ADJUSTER [facility] Urine URINE SPECIMEN / Unknown Non-Blood / Unknown 06/17/2025 4:51 PM [employer]INE ADJUSTER 06/17/2025 4:54 PM [employer]ACHINE ADJUSTER us Obdulia ROMERO URINE Final Result [facility] [address] [place] [address] * (ABNORMAL) URINE CULTURE (06/17/2025 4:51 PM [employer] ADJUSTER) Only the most recent of8 resultswithin the time period is included. CULTURE RESULT(A) 06/19/2025 7:12 AM [employer] ADJUSTER [facility] CULTURE >100,000 CFU/mL Escherichia coli 06/19/2025 7:12 AM [employer] ADJUSTER [facility] Comment:ESBL-positive (Exten ded-spectrum beta-lactamase); multidrug-resistant organism. Urine URINE SPECIMEN / Unknown Non-Blood / Unknown 06/17/2025 4:51 PM [employer]INE ADJUSTER 06/17/2025 4:54 PM [employer]ACHINE ADJUSTER Narrative Organism Antibiotic Method Susceptibility Escherichia coli TRIMETHOPRIM/SULF >=16/304: R Escherichia coli AMPICILLIN >=32: R Escherichia coli CEFAZOLIN >=32: R Escherichia coli CEFAZOLIN-UC >=32: R Comment:Cefazolin-UC interpretations are for therapy of uncomplicated UTIs due to E.coli, K.pneumoniae, or P.mirablis. Cefazolin breakpoint is used as a surrogate to predict results for the oral agents - cefdinir, cefuroxime, and cephalexin, when used for therapy of uncomplicated UTIs due to E coli, K, pneumoniae, and P. mirabilis. The FDA recommends cefadroxil susceptibility can be deduced from cefazolin. Escherichia coli GENTAMICIN >=16: R Escherichia coli CEFTRIAXONE >=64: R Escherichia coli CEFTAZIDIME >=32: R Escherichia coli LEVOFLOXACIN >=8: R Escherichia coli CIPROFLOXACIN >=4: R Escherichia coli PIPERACILLIN/TAZO <=4: S Escherichia coli AMPICILLIN/SULBACTAM >=32: R Escherichia coli CEFEPIME R Escherichia coli MEROPENEM <=0.25: S Escherichia coli NITROFURANTOIN <=16: S Obdulia ROMERO MICROBIOLOGY Final Result [facility] [address] [place] [address], [place] * (ABNORMAL) UA W/ SEDIMENT EXAM REFLEXED PER CRITERIA (06/17/2025 4:51 PM [employer] ADJUSTER) Only the most recent of4 resultswithin the time period is included. COLOR Yellow Yellow Color 06/17/2025 5:17 PM [employer] ADJUSTER [facility] CLARITY Slightly Cloudy(A) Clear Clarity 06/17/2025 5:17 PM [facility] SPECIFIC GRAVITY,URINE 1.025 1.010, 1.015, 1.020, 1.025 06/17/2025 5:17 PM [facility] PH,URINE 5.5 6.0, 7.0, 8.0, 5.5, 6.5, 7.5, 8.5 06/17/2025 5:17 PM [facility] UROBILINOGEN, QUALITATIVE Normal Normal EU/dl 06/17/2025 5:17 PM [facility] PROTEIN, URINE Negative Negative mg/dL 06/17/2025 5:17 PM [facility] GLUCOSE, URINE Negative Negative mg/dL 06/17/2025 5:17 PM [facility] KETONES,URINE Negative Negative mg/dL 06/17/2025 5:17 PM [facility] BILIRUBIN,URI NE Negative Negative 06/17/2025 5:17 PM [facility] OCCULT BLOOD,URINE Trace(A) Negative 06/17/2025 5:17 PM [facility] NITRITE Positive(A) Negative 06/17/2025 5:17 PM [facility] LEUKOCYTE ESTERASE Moderate(A) Negative 06/17/2025 5:17 PM [facility] Urine URINE SPECIMEN / Unknown Non-Blood / Unknown 06/17/2025 4:51 PM [employer]INE ADJUSTER 06/17/2025 4:54 PM [employer]ACHINE ADJUSTER Obdulia ROMERO URINE Final Result [facility] [address] [place] [address] * (ABNORMAL) CBC WITH AUTO DIFFERENTIAL (06/17/2025 4:41 PM [employer] ADJUSTER) Only the most recent of3 resultswithin the time period is included. WHITE BLOOD COUNT 13.7(H) 4.5 - 11.0 thou/cu mm 06/17/2025 4:47 PM [facility] RED BLOOD COUNT 4.44 4.00 - 5.20 mil/cu mm 06/17/2025 4:47 PM [facility] HEMOGLOBIN 14.4 12.0 - 16.0 g/dL 06/17/2025 4:47 PM [facility] HEMATOCRIT 41.9 33.0 - 51.0 % 06/17/2025 4:47 PM [facility] MCV 94 80 - 100 fL 06/17/2025 4:47 PM [facility] MCH 32.4 26.0 - 34.0 pg 06/17/2025 4:47 PM [facility] MCHC 34.4 32.0 - 36.0 g/dL 06/17/2025 4:47 PM [facility] RDW 13.1 11.5 - 15.5 % 06/17/2025 4:47 PM [facility] PLATELET COUNT 359 140 - 440 thou/cu mm 06/17/2025 4:47 PM [facility] MPV 9.7 6.5 - 11.0 fL 06/17/2025 4:47 PM [facility] % NEUT 66.2 % 06/17/2025 4:47 PM [facility] % LYMPH 24.9 % 06/17/2025 4:47 PM [facility] % MONO 8.1 % 06/17/2025 4:47 PM [facility] % EOS 0.7 % 06/17/2025 4:47 PM [facility] % BASO 0.1 % 06/17/2025 4:47 PM [facility] ABSOLUTE NEUTROPHILS 9.0(H) 1.7 - 7.0 thou/cu mm 06/17/2025 4:47 PM [facility] ABSOLUTE LYMPHOCYTES 3.4(H) 0.9 - 2.9 thou/cu mm 06/17/2025 4:47 PM [facility] ABSOLUTE MONOCYTES 1.1(H) <0.9 thou/cu mm 06/17/2025 4:47 PM [facility] ABSOLUTE EOSINOPHILS 0.1 <0.5 thou/cu mm 06/17/2025 4:47 PM [facility] ABSOLUTE BASOPHILS 0.0 <0.3 thou/cu mm 06/17/2025 4:47 PM [facility] Blood BLOOD SPECIMEN / Unknown Venipuncture / Unknown 06/17/2025 4:41 PM [employer]ACHINE ADJUSTER 06/17/2025 4:44 PM [employer]ACHINE ADJUSTER Obdulia ROMERO HEMATOLOGY Final Result [facility] [address] [place] [address] * (ABNORMAL) BASIC METABOLIC PANEL (06/17/2025 4:41 PM [employer]ACHINE ADJUSTER) Only the most recent of4 resultswithin the time period is included. SODIUM 140 136 - 145 mmol/L 06/17/2025 5:02 PM [facility] POTASSIUM 3.6 3.5 - 5.1 mmol/L 06/17/2025 5:02 PM [facility] CHLORIDE 104 98 - 107 mmol/L 06/17/2025 5:02 PM [facility] CO2,TOTAL 23 22 - 29 mmol/L 06/17/2025 5:02 PM [facility] ANION GAP 13 5 - 18 06/17/2025 5:02 PM [facility] GLUCOSE 81 70 - 99 mg/dL 06/17/2025 5:02 PM [facility] CALCIUM 8.7(L) 8.8 - 10.4 mg/dL 06/17/2025 5:02 PM [facility] Comment: Reference ranges for this test were updated on 06/13/2024 to reflect our healthy population more accurately. Reference range changes are not retroactively applied to results, but previous results using the same methodology can be interpreted in the context of the new reference range. BUN 4(L) 6 - 20 mg/dL 06/17/2025 5:02 PM [facility] CREATININE 0.63 0.50 - 0.90 mg/dL 06/17/2025 5:02 PM [facility] BUN/CREAT RATIO 6(L) 10 - 20 5:02 PM [employer]INE ADJUSTER [facility] eGFR >90 >90 mL/min/1. 73m2 06/17/2025 5:02 PM [facility] Comment:As of 2021, eG FR is calculated by the CKD-EPI creatinine equation without race adjustment. eGFR can be influenced by muscle mass, exercise, and diet. The reported eGFR is an estimation only and is only applicable if the renal function is stable. Blood BLOOD SPECIMEN / Unknown Venipuncture / Unknown 06/17/2025 4:41 PM [employer] MACHINE ADJUSTER 06/17/2025 4:44 PM [employer] MACHINE ADJUSTER us Obdulia ROMERO CHEMISTRY Final Result [facility] [address] [place] [address] * US RENAL AND BLADDER COMPLETE (06/04/2025 2:23 PM CDT) Only the most recent of2 resultswithin the time period is included. Anatomical Region Laterality Modality Abdomen, AORTA, KIDNEYS Ultrasou nd 06/04/2025 2:31 PM CDT Impressions 06/04/2025 2:31 PM CDT Normal ultrasound examination of kidneys. Dictated by Geoffrey Thompson MD @ 06/04/2025 2:31:52 PM (Electronically Signed) Narrative 06/04/2025 2:31 PM CDT For Patients: As a result of the Century Cures Act, medical imaging exams and procedure reports are released immediately into your electronic medical record. You may view this report before your referring provider. If you have questions, please contact your health care provider. INDICATION: Urinary symptom or sign. TECHNIQUE: Ultrasound renal and bladder complete. Canales-scale and color Doppler sonographic images were acquired of the kidneys and urinary bladder. COMPARISON: Ultrasound kidneys May 26, 2025 FINDINGS: Right kidney: 11.2 x 5.8 x 4.5 cm. Normal echotexture and cortex. No suspicious masses, stones, or hydronephrosis. Preserved vascularity. Left kidney: 11.4 x 5.7 x 4.5 cm. Normal echotexture and cortex. No suspicious masses, stones, or hydronephrosis. Preserved vascularity. Bladder: Normal in caliber and appearance. Prevoid bladder volume measures 63 mL. Postvoid residual volume measures 23 mL. Color Doppler images demonstrate bilateral ureteral jets. Procedure Note Geoffrey Thompson MD - 06/04/2025 For Patients: As a result of the Cures Act, medical imagingexams and procedure reports are released immediately into your electronicmedical record. You may view this report before your referring provider.If you have questions, please contact your health care provider. INDICATION: Urinary symptom or sign. TECHNIQUE: Ultrasound renal and bladder complete. Canales-scale and color Dopplersonographic images were acquired of the kidneys and urinary bladder. COMPARISON: Ultrasound kidneys May 26, 2025 FINDINGS: Right kidney: 11.2 x 5.8 x 4.5 cm. Normal echotexture and cortex. Nosuspicious masses, stones, or hydronephrosis. Preserved vascularity. Left kidney: 11.4 x 5.7 x 4.5 cm. Normal echotexture and cortex. Nosuspicious masses, stones, or hydronephrosis. Preserved vascularity. Bladder: Normal in caliber and appearance. Prevoid bladder volume mL. Postvoid residual volume measures 23 mL. Color Doppler imagesdemonstrate bilateral ureteral jets. IMPRESSION: Normal ultrasound examination of kidneys. Dictated by Geoffrey Thompson MD @ 06/04/2025 2:31:52 PM (Electronically Signed) us Felicitas ROMERO US Final Res ult * MR PELVIS WWO (05/30/2025 9:31 AM CDT) Anatomical Region Laterality Modality Pelvis Magnetic Resonan ce 05/31/2025 1:51 PM CDT Impressions 05/31/2025 1:51 PM CDT Unremarkable pelvic MRI. No evidence of urethral diverticulum as queried. Dictated by Princess Caldwell MD @ 05/31/2025 1:51:42 PM (Electronically Signed) Narrative 05/31/2025 1:51 PM CDT For Patients: As a result of the Cures Act, medical imaging exams and procedure reports are released immediately into your electronic medical record. You may view this report before your referring provider. If you have questions, please contact your health care provider. INDICATION: Frequent UTI, evaluate for urethral diverticulum TECHNIQUE: 1.5 T MRI pelvis performed with pre and post-contrast T1 weighted imaging; T2 weighted imaging. 17 mL Dotarem IV COMPARISON: CT abdomen and pelvis 03/20/2025 FINDINGS: Uterus: The uterus is normal in size measuring 4.7 x 8.7 cm. The endometrium measures 7 mm in thickness. No uterine fibroids are present. No definite evidence of endometriosis or adenomyosis. Cervical stroma: Intact without evidence of mass Ovaries/adnexa: Unremarkable ovaries bilaterally. Multiple physiologic follicles are present. No evidence of ovarian/adnexal mass. Remaining pelvis: Limited evaluation of the abdominal viscera demonstrates normal appearance of the visualized bowel and urinary bladder. Vasculature: The iliac arteries are patent. Lymph nodes: No enlarged lymph nodes within the pelvis. Peritoneal space: No free fluid within the pelvis. Musculoskeletal: Bone marrow signal is within normal limits. Procedure Note Princess Caldwell MD - 05/31/2025 For Patients: As a result of the Cures Act, medical imagingexams and procedure reports are released immediately into your electronicmedical record. You may view this report before your referring provider.If you have questions, please contact your health care provider. INDICATION: Frequent UTI, evaluate for urethral diverticulum TECHNIQUE: 1.5 T MRI pelvis performed with pre and post-contrast T1 weighted imaging;T2 weighted imaging. 17 mL Dotarem IV COMPARISON: CT abdomen and pelvis 03/20/2025 FINDINGS: Uterus: The uterus is normal in size measuring 4.7 x 8.7 cm. Theendometrium measures 7 mm in thickness. No uterine fibroids are present.No definite evidence of endometriosis or adenomyosis. Cervical stroma: Intact without evidence of mass Ovaries/adnexa: Unremarkable ovaries bilaterally. Multiple physiologicfollicles are present. No evidence of ovarian/adnexal mass. Remaining pelvis: Limited evaluation of the abdominal viscera demonstratesnormal appearance of the visualized bowel and urinary bladder. Vasculature: The iliac arteries are patent. Lymph nodes: No enlarged lymph nodes within the pelvis. Peritoneal space: No free fluid within the pelvis. Musculoskeletal: Bone marrow signal is within normal limits. IMPRESSION: Unremarkable pelvic MRI. No evidence of urethral diverticulum asqueried. Dictated by Princess Caldwell MD @ 05/31/2025 1:51:42 PM (Electronically Signed) Jaydon Farnsworth MD MR Final R esult * (ABNORMAL) WHITE BLOOD COUNT (05/28/2025 5:44 AM CDT) Only the most recent of4 resultswithin the time period is included. WHITE BLOOD COUNT 12.2(H) 4.5 - 11.0 thou/cu mm 05/28/2025 6:10 AM CDT [facility] Blood BLOOD SPECIMEN / Unknown Venipuncture / Unknown 05/28/2025 5:44 AM CDT 05/28/2025 6:06 AM CDT Rebecca Lamb NP HEMATOLOGY Fin al Result Performing Organization Address City/[facility]/ZIP Co de Phone Number [facility] [address] [place] [address] * HEMOGLOBIN (05/28/2025 5:44 AM CDT) Only the most recent of3 resultswithin the time period is included. HEMOGLOBIN 13.8 12.0 - 16.0 g/dL 05/28/2025 6:10 AM CDT [facility] MCV 97 80 - 100 fL 05/28/2025 6:10 AM CDT [facility] Blood BLOOD SPECIMEN / Unknown Venipuncture / Unknown 05/28/2025 5:44 AM CDT 05/28/2025 6:06 AM CDT Rebecca Lamb NP HEMATOLOGY Fin al Result Performing Organization Address City/[facility]/ZIP Co de Phone Number [facility] [address] [place] [address] * SODIUM (05/28/2025 5:44 AM CDT) Only the most recent of4 resultswithin the time period is included. SODIUM 140 136 - 145 mmol/L 05/28/2025 6:27 AM CDT [facility] Blood BLOOD SPECIMEN / Unknown Venipuncture / Unknown 05/28/2025 5:44 AM CDT 05/28/2025 6:06 AM CDT us Rebecca Lamb [employer] CHEMISTRY Fin al Result [facility] [address] [place] [address] * POTASSIUM (05/28/2025 5:44 AM CDT) Only the most recent of7 resultswithin the time period is included. POTASSIUM 4.5 3.5 - 5.1 mmol/L 05/28/2025 6:27 AM CDT [facility] Blood BLOOD SPECIMEN / Unknown Venipuncture / Unknown 05/28/2025 5:44 AM CDT 05/28/2025 6:06 AM CDT us Mari Salgado RN CHEMISTRY Final Result Performing Organization Address City/[facility]/ZIP Co de Phone Number [facility] [address] [place] [address] * CREATININE (05/28/2025 5:44 AM CDT) Only the most recent of4 resultswithin the time period is included. eGFR >90 >90 mL/min/1.7 3m2 05/28/2025 6:27 AM CDT [facility] Comment:As of 2021, eG FR is calculated by the CKD-EPI creatinine equation without race adjustment. eGFR can be influenced by muscle mass, exercise, and diet. The reported eGFR is an estimation only and is only applicable if the renal function is stable. CREATININE 0.60 0.50 - 0.90 mg/dL 05/28/2025 6:27 AM CDT [facility] Blood BLOOD SPECIMEN / Unknown Venipuncture / Unknown 05/28/2025 5:44 AM CDT 05/28/2025 6:06 AM CDT Rebecca Lamb NP CHEMISTRY Fin al Result Performing Organization Address City/[facility] Co de Phone Number [facility] [address] [place] [address] * C-REACTIVE PROTEIN (05/28/2025 5:44 AM CDT) Only the most recent of4 resultswithin the time period is included. C-REACTIVE PROTEIN <0.3 <0.5 mg/dL 05/28/2025 6:29 AM CDT [facility] Blood BLOOD SPECIMEN / Unknown Venipuncture / Unknown 05/28/2025 5:44 AM CDT 05/28/2025 6:06 AM CDT Rebecca Lamb NP CHEMISTRY Fin al Result Performing Organization Address [facility] de Phone Number [facility] [address] [place] [address] * MAGNESIUM (05/28/2025 5:44 AM CDT) Only the most recent of6 resultswithin the time period is included. MAGNESIUM 1.9 1.6 - 2.6 mg/dL 05/28/2025 6:29 AM CDT [facility] Blood BLOOD SPECIMEN / Unknown Venipuncture / Unknown 05/28/2025 5:44 AM CDT 05/28/2025 6:06 AM CDT Rebecca Lamb NP CHEMISTRY Fin al Result Performing Organization Address City/[facility]/ZIP Co de Phone Number [facility] [address] [place] [address] * (ABNORMAL) CBC W PLT NO DIFF (05/26/2025 5:51 PM CDT) Only the most recent of2 resultswithin the time period is included. WHITE BLOOD COUNT 16.0(H) 4.5 - 11.0 thou/cu mm 05/26/2025 5:57 PM CDT [facility] RED BLOOD COUNT 4.56 4.00 - 5.20 mil/cu mm 05/26/2025 5:57 PM CDT [facility] HEMOGLOBIN 14.7 12.0 - 16.0 g/dL 05/26/2025 5:57 PM CDT [facility] HEMATOCRIT 43.2 33.0 - 51.0 % 05/26/2025 5:57 PM T [facility] MCV 95 80 - 100 fL 05/26/2025 5:57 PM CDT [facility] MCH 32.2 26.0 - 34.0 pg 05/26/2025 5:57 PM CDT [facility] MCHC 34.0 32.0 - 36.0 g/dL 05/26/2025 5:57 PM T [facility] RDW 13.1 11.5 - 15.5 % 05/26/2025 5:57 PM CDT [facility] PLATELET COUNT 358 140 - 440 thou/cu mm 05/26/2025 5:57 PM T [facility] MPV 9.5 6.5 - 11.0 fL 05/26/2025 5:57 PM T [facility] Blood BLOOD SPECIMEN / Unknown Venipuncture / Unknown 05/26/2025 5:51 PM CDT 05/26/2025 5:54 PM CDT us Belen Pattonutt DO HEMATOLOGY Final Result [facility] [address] [place] [address] * (ABNORMAL) POCT Urinalysis Dipstick Only [[id number]] (04/25/2025 12:00 PM CDT) Only the most recent of2 resultswithin the time period is included. SPECIFIC GRAVITY 1.010 1.001 - 1.035 04/25/2025 12:16 PM CDT [facility] PROTEIN NEGATIVE NEGATIVE 04/25/2025 12:16 PM CDT [facility] GLUCOSE NEGATIVE NEGATIVE 04/25/2025 12:16 PM CDT [facility] KETONES NEGATIVE NEGATIVE 04/25/2025 12:16 PM CDT [facility] BILIRUBIN NEGATIVE NEGATIVE 04/25/2025 12:16 PM CDT [facility] OCCULT BLOOD 1+(A) NEGATIVE 04/25/2025 12:16 PM CDT [facility] NITRITE NEGATIVE NEGATIVE 04/25/2025 12:16 PM CDT [facility] PH 6.0 5.0 - 8.0 04/25/2025 12:16 PM CDT [facility] LEUKOCYTE ESTERASE 3+(A) NEGATIVE 04/25/2025 12:16 PM CDT [facility] Urine URINE SPECIMEN / Unknown Non-Blood / Unknown 04/25/2025 12:00 PM CDT 04/25/2025 12:01 PM CDT Jaydon Goyal MD URINE Final Result [employer] [facility] [address] [place] [address], [place] [phone] [facility] [address] [place] [address], [place] [phone] * PROCALCITONIN (03/21/2025 5:46 AM CDT) Pathologist [facility] PROCALCITONIN 0.04 ng/ml 03/21/2025 6:43 AM CDT [facility] Blood BLOOD SPECIMEN / Unknown Venipuncture / Unknown 03/21/2025 5:46 AM CDT 03/21/2025 6:09 AM CDT [facility] - 03/21/2025 6:43 AM CDT Procalcitonin for initial assessment of Lower Respiratory Tract Infection: Results Interpretation <0.10 ng/mL Antibiotic therapy strongly discoraged. Indicates absent of bacterial infection. * 0.10 - 0.25 ng/mL Antibiotic therapy discouraged. Bacterial infection unlikely. * 0.26 - 0.50 ng/mL Antibiotic therapy encouraged. Bacterial infection possible. >0.50 ng/mL Antibiotic therapy strongly encouraged. Suggestive of presence of bacterial infection. *Antibiotic therapy should be considered regardless of PCT result if the patient is clinically unstable, is at high risk for adverse outcome, has strong evidence of bacterial pathogen, or the clinical context indicates antibiotic therapy is warranted. If antibiotics are withheld, reassess if symptoms persist/worsen and/or repeat PCT measurement within 6-24 hours. In order to assess treatment success and to support a decision to discontinue antibiotic therapy, follow up samples should be tested once every 1-2 days, based upon physician discretion taking into account patient's evolution and progress. Procalcitonin for initial assessment of severe sepsis risk: Results Interpretation <0.5 ng/ml A PCT level below 0.5 ng/ml on the first day of ICU admission is associated with a low risk for progression to severe sepsis and/or septic shock. > 2.0 ng/mL A PCT level above 2.0 ng/mL on the first day of ICU admission is associated with a high risk for progression to severe sepsis and/or septic shock. Note: Concentrations < 0.5 ng/mL do not exclude an infection, on account of localized infections (without systemic signs) which can be associated with such low concentrations, or a systemic infection in its initial stages(< 6 hours). Furthermore, increased procalcitonin can occur without infection. PCT concentrations between 0.5 and 2.0 ng/mL should be interpreted taking into account the patient's history. It is recommended to retest PCT within 6-24 hours if any concentrations < 2 ng/mL are obtained. us Yash Urrutia DO SEND OUTS Final Res ult [facility] [address] [place] [address] [id number] * CT ABDOMEN PELVIS STONE PROTOCOL WO (03/20/2025 4:16 PM CDT) Anatomical Region Laterality Modality Abdomen, Pelvis, AORTA, LIVER, SPLEEN Computed Tomography 03/20/2025 4:36 PM CDT Impressions 03/20/2025 4:36 PM CDT 1. Prominent right adnexa with likely 4 centimeter right ovarian cyst. Recommend follow-up pelvic ultrasound for further evaluation in this patient with reported flank pain. Additional note is made of a likely chronic displaced tubal ligation clip. Clinical correlation recommended. Please note that all CT scans at this facility use dose modulation, iterative reconstruction, and/or weight-based dosing when appropriate to reduce radiation dose to as low as reasonably achievable. Dictated by Vicente Orosco MD @ 03/20/2025 4:36:16 PM (Electronically Signed) Narrative 03/20/2025 4:36 PM CDT For Patients: As a result of the Cures Act, medical imaging exams and procedure reports are released immediately into your electronic medical record. You may view this report before your referring provider. If you have questions, please contact your health care provider. INDICATION: Abdominal and flank pain. TECHNIQUE: CT abdomen and pelvis without contrast. COMPARISON: 01/09/2025. FINDINGS: Visualized lung bases are clear. The liver is unremarkable. Cholecystectomy clips are present. No biliary ductal dilatation. Spleen is unremarkable. The pancreas is unremarkable. Adrenal glands are normal. Motion partially obscures the right kidney. No gross hydronephrosis or perinephric stranding. No stone is seen. Urinary bladder is partially distended without substantial thickening or stranding. There is stool throughout the colon which appears nondilated. The appendix is nondilated. The small bowel is nondilated without evidence of a small-bowel obstruction. The stomach is partially distended. The uterus is unremarkable. A surgical clip is seen within the region of the left adnexa which is similar compared to the prior examination. A prominent right adnexa is seen with likely 4 centimeter right ovarian cyst. A surgical clip is seen within the left abdomen in slightly different appearance compared to the prior examination. This could represent a chronic displaced right tubal ligation clip. No free air. No ascites. No lymphadenopathy. Aorta is nonaneurysmal. Bone windows demonstrate no acute fracture. Procedure Note Vicente Orosco MD - 03/20/2025 For Patients: As a result of the Century Cures Act, medical imagingexams and procedure reports are released immediately into your electronicmedical record. You may view this report before your referring provider.If you have questions, please contact your health care provider. INDICATION: Abdominal and flank pain. TECHNIQUE: CT abdomen and pelvis without contrast. COMPARISON: 01/09/2025. FINDINGS: Visualized lung bases are clear. The liver is unremarkable. Cholecystectomy clips are present. No biliaryductal dilatation. Spleen is unremarkable. The pancreas is unremarkable.Adrenal glands are normal. Motion partially obscures the right kidney. No gross hydronephrosis orperinephric stranding. No stone is seen. Urinary bladder is partiallydistended without substantial thickening or stranding. There is stool throughout the colon which appears nondilated. The appendixis nondilated. The small bowel is nondilated without evidence of asmall-bowel obstruction. The stomach is partially distended. The uterus is unremarkable. A surgical clip is seen within the region ofthe left adnexa which is similar compared to the prior examination. Aprominent right adnexa is seen with likely 4 centimeter right ovariancyst. A surgical clip is seen within the left abdomen in slightlydifferent appearance compared to the prior examination. This couldrepresent a chronic displaced right tubal ligation clip. No free air. No ascites. No lymphadenopathy. Aorta is nonaneurysmal. Bone windows demonstrate no acute fracture. IMPRESSION: 1. Prominent right adnexa with likely 4 centimeter right ovarian cyst.Recommend follow-up pelvic ultrasound for further evaluation in thispatient with reported flank pain. Additional note is made of a likelychronic displaced tubal ligation clip. Clinical correlation recommended. Please note that all CT scans at this facility use dose modulation,iterative reconstruction, and/or weight-based dosing when appropriate toreduce radiation dose to as low as reasonably achievable. Dictated by Vicente Orosco MD @ 03/20/2025 4:36:16 PM (Electronically Signed) Eugenia Mason NP CT Final Result * RED CELL MORPHOLOGY (03/20/2025 4:15 PM CDT) RBC COMMENT RBC morphology appears normal RBC morphology appears normal, RBC morphology within normal limits for newborns. 03/20/2025 5:14 PM CDT [facility] Blood BLOOD SPECIMEN / Unknown Butterfly / Unknown 03/20/2025 4:15 PM CDT 03/20/2025 4:29 PM CDT Eugenia Mason NP HEMATOLOGY Final Result Performing Organization Address City/[facility]/ZIP Co de Phone Number [facility] [address] [place] [address] * PLATELET ESTIMATE (03/20/2025 4:15 PM CDT) [facility] PLATELET ESTIMATE Adequate Adequate, No estimate 03/20/2025 5:14 PM CDT [facility] Blood BLOOD SPECIMEN / Unknown Butterfly / Unknown 03/20/2025 4:15 PM CDT 03/20/2025 4:29 PM CDT Eugenia Mason NP HEMATOLOGY Final Result Performing Organization Address City/[facility]/ZIP Co de Phone Number [facility] [address] [place] [address] * (ABNORMAL) MANUAL DIFFERENTIAL (03/20/2025 4:15 PM CDT) [facility] % NEUTROPHILS 54.0 % 03/20/2025 5:14 PM [facility] % LYMPHOCYTES 38.0 % 03/20/2025 5:14 PM [facility] % MONOCYTES 8.0 % 03/20/2025 5:14 PM [facility] % EOSINOPHILS 0.0 % 03/20/2025 5:14 PM T [facility] % BASOPHILS 0.0 % 03/20/2025 5:14 PM T [facility] NEUTROPHILS ABSOLUTE 4.6 1.7 - 7.0 thou/cu mm 03/20/2025 5:14 PM [facility] LYMPHOCYTES ABSOLUTE 3.3(H) 0.9 - 2.9 thou/cu mm 03/20/2025 5:14 PM T [facility] MONOCYTES ABSOLUTE 0.7 <0.9 thou/cu mm 03/20/2025 5:14 PM CDT [facility] EOSINOPHILS ABSOLUTE 0.0 <0.5 thou/cu mm 03/20/2025 5:14 PM CDT [facility] BASOPHILS ABSOLUTE 0.0 <0.3 thou/cu mm 03/20/2025 5:14 PM T [facility] Blood BLOOD SPECIMEN / Unknown Butterfly / Unknown 03/20/2025 4:15 PM CDT 03/20/2025 4:29 PM CDT Eugenia Mason NP HEMATOLOGY Final Result [facility] [address] [place] [address] * (ABNORMAL) COMP METABOLIC PANEL (03/20/2025 4:15 PM CDT) SODIUM 140 136 - 145 mmol/L 03/20/2025 4:51 PM [facility] POTASSIUM 3.2(L) 3.5 - 5.1 mmol/L 03/20/2025 4:51 PM [facility] CHLORIDE 106 98 - 107 mmol/L 03/20/2025 4:51 PM [facility] CO2,TOTAL 19(L) 22 - 29 mmol/L 03/20/2025 4:51 PM [facility] ANION GAP 15 5 - 18 03/20/2025 4:51 PM [facility] GLUCOSE 110(H) 70 - 99 mg/dL 03/20/2025 4:51 PM [facility] CALCIUM 8.5(L) 8.8 - 10.4 mg/dL 03/20/2025 4:51 PM [facility] Comment: Reference ranges for this test were updated on 06/13/2024 to reflect our healthy population more accurately. Reference range changes are not retroactively applied to results, but previous results using the same methodology can be interpreted in the context of the new reference range. BUN 5(L) 6 - 20 mg/dL 03/20/2025 4:51 PM [facility] CREATININE 0.59 0.50 - 0.90 mg/dL 03/20/2025 4:51 PM [facility] BUN/CREAT RATIO 8(L) 10 - 20 4:51 PM [facility] eGFR >90 >90 mL/min/1. 73m2 03/20/2025 4:51 PM [facility] Comment:As of 2021, eG FR is calculated by the CKD-EPI creatinine equation without race adjustment. eGFR can be influenced by muscle mass, exercise, and diet. The reported eGFR is an estimation only and is only applicable if the renal function is stable. ALBUMIN 4.4 4.0 - 4.9 g/dL 03/20/2025 4:51 PM [facility] PROTEIN,TOTAL 6.8 6.0 - 8.0 g/dL 03/20/2025 4:51 PM [facility] BILIRUBIN,TOTAL 0.4 0.0 - 1.2 mg/dL 03/20/2025 4:51 PM [facility] ALK PHOSPHATASE 84 35 - 104 IU/L 03/20/2025 4:51 PM [facility] ALT (SGPT) 31 10 - 35 IU/L 03/20/2025 4:51 PM [facility] AST (SGOT) 31 10 - 35 IU/L 03/20/2025 4:51 PM [facility] Blood BLOOD SPECIMEN / Unknown Butterfly / Unknown 03/20/2025 4:15 PM CDT 03/20/2025 4:29 PM CDT us Eugenia Mason NP CHEMISTRY Final Result [facility] [address] [facility] [place] [address] * URINE (03/20/2025 1:12 PM CDT) ,URIN E Negative Negative 03/20/2025 4:21 PM CDT [facility] Urine URINE SPECIMEN / Unknown Non-Blood / Unknown 03/20/2025 1:12 PM CDT 03/20/2025 1:12 PM CDT us Eugenia Mason NP URINE Final Result [facility] [address] [place] [address] * FUEL SYSTEM MAINTENANCE SUPERVISOR THIN PREP PAP SCREEN IMAGED (12/02/2020 11:02 AM CDT) Case Report Gynecologic Cytology Report Case: [id number] Authorizing Provider: Emmy Borwn NP Collected: 12/02/2020 1102 Ordering Location: [facility] Received: 12/02/2020 1120 Clinic First Screen: Snow Torres Specimen: FUEL SYSTEM MAINTENANCE SUPERVISOR ThinPrep Vial Screening, Cervical 12/11/2020 2:41 PM CDT [facility] INTERPRETATION/ RESULT NEGATIVE FOR INTRAEPITHELIAL LESION OR MALIGNANCY (NIL) (none) 12/11/2020 2:41 PM CDT [facility] at 1440 CDT SPECIMEN ADEQUACY Satisfactory for evaluation Endocervical component present 12/11/2020 2:41 PM CDT [facility] HPV REQUEST HPV and PAP 12/11/2020 2:41 PM CDT [facility] Date of LMP 11/04/20 12/11/2020 2:41 PM CDT [facility] Last Pap Date 200912/11/2020 2:41 PM CDT [facility] Last Pap Result NIL 2:41 PM CDT [facility] Abnormal Pap or [place] Bx in last 5 years No 12/11/2020 2:41 PM CDT [facility] Menstrual Status Regular Periods 12/11/2020 2:41 PM CDT [facility] [place] Bx Done Today No 12/11/2020 2:41 PM CDT [facility] Additional Information None given 12/11/2020 2:41 PM CDT [facility] Comment: Cytology is screened at [facility] - [address], [place] [address] and [facility] - [address], [place] [address] and [facility] - [address] [place] [address] Interpreted at [facility] - [address] [place] [address] Automated Review Successful 12/11/2020 2:41 PM CDT [facility] Comment:Specimen processed s uccessfully by automated research compliance specialist device, ThinPrep Imaging System, [employer] ANCILLARY TESTING FUEL SYSTEM MAINTENANCE SUPERVISOR HPV Ordered, Please see separate report 12/11/2020 2:41 PM CDT [facility] Note The pap test is a screening technique, not a diagnostic procedure. It is used primarily to screen for squamous cancers and precursor lesions. Published studies have shown that it is subject to both false negative and false positive results. The pap test should not be used as the sole means to diagnose or exclude pre-malignant and malignant lesions. 12/11/2020 2:41 PM CDT [facility] Other (Cervical) Non-Blood / Unknown 12/02/2020 11:02 AM CDT 12/02/2020 11:20 AM CDT Emmy Brown NP PATHOLOGY/CYTOLOGY Final Result [facility] [address] [place] [address], [place] * ANTI HIV 1/2 [42615.0] (02/03/2008 4:35 PM CDT) ANTI HIV 1/2 Non-reacti ve [facility] Blood specimen (specimen) BLOOD SPECIMEN / Unknown 02/03/2008 4:35 PM CDT 02/03/2008 4:17 PM CDT us Esperanza Shen MD SEND OUTS Final Resu lt [facility] INTERNAL ZIP [phone] [address] from Last 3 Months or Most Recently Relevant to Health Maintenance Additional Health Concerns Infection Onset Date Last Indicated ESBL Comment:Order contact precautions. Pt. does not meet criteria for discontinuation of precautions due to testing positive for ESBL after previously being cleared and is not eligible for screening per IC policy. +MDRO 06/17/2025, ESBL+ E. coli, urine +MDRO 05/23/2025, ESBL+ E. coli, urine +MDRO 03/20/2025, ESBL+ E. coli, urine +MDRO 03/04/2025, ESBL+ E. coli, urine +MDRO 02/27/2019, ESBL+ E. coli, urine +MDRO 05/05/2016, ESBL+ E. coli, urine +MDRO 02/18/2016, ESBL+ E. coli, urine +MDRO 08/02/2015, ESBL+ E. coli, urine +MDRO 06/04/2015, ESBL+ E. coli, urine 02/25/2016 06/17/2025 MRSA Clearance Comment:Infection Control Note: Hx of MRSA, surveillance criteria met, no need for further testing or isolation precautions. Do not delete or resolve the Infection Flag. 03/07/2025 03/07/[address] [place] [place] [address] [address] [place] [address] [address] [place] [place] [address] [facility] [address] [place] [address] [address] [place] [address] [address] [place] [id number] * Guarantor: IMELDA ISIDRO Account Type Relation to Patient Date of Phone Billing Address [employer] [address] [address] [address] [place] [id number] [place] [address] * Guarantor: DESHAWN DAMIAN/TRUDY [place] Account Type Relation to Patient Date of Phone Billing Address [facility] [employer]er [address] [facility] [place] [address] Advance Directives * Full Code (Latest Code Status on File) Date Activated Date Inactivated Comments 05/26/2025 8:18 PM 05/28/2025 1:29 PM Question Answer Comments Code Status Discussion: Reviewed Preferences * Full Code Date Activated Date Inactivated Comments 03/20/2025 4:04 PM 03/23/2025 4:50 PM Question Answer Comments Code Status Discussion: Reviewed Preferences * Full Code Date Activated Date Inactivated Comments 03/06/2025 9:41 PM 03/07/2025 7:06 PM Question Answer Comments Code Status Discussion: Reviewed Preferences * Full Code Date Activated Date Inactivated Comments 06/10/2024 10:12 PM 06/12/2024 1:37 PM Question Answer Comments Code Status Discussion: Reviewed Preferences * Full Code Date Activated Date Inactivated Comments 12/16/2017 9:58 AM 12/16/2017 1:29 PM Question Answer Comments Code Status Discussion: Not Discussed Care Teams Mobility Architect Manager Relationship Specialty Start Date End Date Jaydon Goyal MD [facility] [place] [address] PCP - General Family Practice 04/12/25 Bisi Moy PsyD, LP [address] [facility] [place] [address] Psychology 12/13/17 Felicitas Nelson PA [address] [facility] [place] [address] Physician Daycare Manager 12/27/24
--- OUTSIDE RECORDS SUMMARY | 2025-06-19 19:20 | XMS_ITS | Data Portability ---
Author Organization [place] - [facility], [employer] Address [address] [facility] [place] [address] Assessment Encounter Date Assessment Date Assessment LastModified by Organization Details LastModified Time 03/13/2024 03/13/2024 Discussed medical conditions with patient today. Obtained three weightbearing radiographs of the right foot and reviewed findings with patient as noted above. No evidence of fracture appreciated. For the traumatic partial onycholysis of the right hallux with pain, I discussed two treatment options with the patient: conservative management with band-aids and monitoring the nail growth over time, or a temporary removal of the nail plate to allow for a the nail plate to grow out. The patient expressed interest in the latter to relieve the pain that she is currently experiencing. I explained the risks and benefits of the procedure and patient expressed interest to proceed. The patient was informed that the nail would take 8 to 10 months to grow back and that the morphology of the nail plate is unpredictable. Obtained verbal and written consent prior to start of procedure. Please see procedure note below for more details. Educated patient on postprocedure cares (Epsom salt soaks followed by application of triple antibiotic ointment and a band-aid). The patient was advised to to rest and allow proper healing of the procedure site until re-evalauted on . She was provided a work note today. Patient verbalized understanding and is in agreement with the above treatment plan. Not available 03/14/2024 10:10:45 03/16/2024 03/16/2024 Discussed medical condition with patient today. Her procedure site appears to be healing uneventfully. They are to continue foot soaks and application of triple antibiotic ointment/bandaid . I recommended finding shoes with a mesh upper to provide more comfort and reduce pressure on the toe. The patient was cleared to return to work as tolerated and was provided with a note for their employer. A follow-up appointment was scheduled for two weeks post-procedure to monitor healing and sensitivity. The patient was instructed to call the office if they experience any issues or increased discomfort. Patient verbalized understanding and is in agreement with the above treatment plan. Not available 03/16/2024 14:24:13 Plan of Treatment Reminders Order Date Submit Date Provider Last Modified By Organization Details Last Modified Time Details Appointments None record ed. Lab None record ed. Referral None record ed. Procedures None record ed. Surgeries None record ed. Imaging None record ed. Medication Orders None record ed. Patient TargetsNo targets recorded. Patient InstructionsNo instructions recorded. Reason for Referral None Reported. Procedures Surgical History Date Name Laterality Status Provider Name and Address Organization Details Recorded Time 03/13/2024 MKM PNA Total completed KORY GARCIA DPM [address] [place], [address], [facility] - [facility] 03/13/2024 15:35:40 Imaging Results None recorded. Procedure Notes None recorded. Medical Equipment None Reported. Allergies No known drug allergies Medications Name Sig Start Date Stop Date Status Note LastModified by Organization Details LastModified Time fluconazole 150 mg tablet TAKE 1 TABLET BY MOUTH ONE TIME FOR 1 DOSE TAKE ANOTHER TABLET IN 3-5 DAYS IF SYMPTOMS PERSIST active Not Available Not Available No t Available phenazopyridi ne 200 mg tablet TAKE 1 TABLET BY MOUTH THREE TIMES DAILY AFTER MEASL FOR 2 DAYS active Not Available Not Available No t Available sulfamethoxaz ole 800 mg-trimethopr im 160 mg tablet TAKE 1 TABLET BY MOUTH TWICE DAILY FOR 5 DAYS active Not Available Not Available No t Available benzonatate 100 mg capsule TAKE 1 CAPSULE BY MOUTH EVERY 8 HOURS NEEDED FOR COUGH active Not Available Not Available No t Available cephalexin 500 mg capsule TAKE 1 CAPSULE BY MOUTH TWICE DAILY FOR 7 DAYS active Not Available Not Available No t Available amoxicillin 875 mg-potassium clavulanate 125 mg tablet TAKE 1 TABLET BY MOUTH EVERY 12 HOURS FOR 7 DAYS active Not Available Not Available No t Available Ventolin HFA 90 mcg/actuation aerosol inhaler INHALE 1 TO 2 PUFFS BY MOUTH EVERY 4 HOURS NEEDED FOR SHORTNESS OF BREATH FOR WHEEZING active Not Available Not Available No t Available nitrofurantoi n monohydrate/m acrocrystals 100 mg capsule active Not Available Not Available Not Available Vitals Date Recorded Body height Body mass index (BMI) Body weight Provider Name and Address Organization Details Last Updated DateTime 03/13/2024 167.64 cm 29.1 kg/m2 51989.63 g Vianca Jim [place] - [facility] 03/13/2024 14:43:22 Social History None recorded. Functional Status None recorded. Mental Status None recorded. Family History Nothing Reported. Medical History No medical history recorded. Gynecological HistoryNo gynecological history recorded. Obstetrics History GPAL:G 0 P 0 0 0 0 Past Encounters Encounter ID Performer Location Encounter Start Date Encounter Closed Date Diagnosis/Indication Diagnosis SNOMED-CT Code Diagnosis ICD10 Code Diagnosis IMO Codes Diagnosis Note [id number] KORY RADHA [facility] Office [address] [place] [phone] 03/13/2024 14:43:45 03/14/2024 16:45:33 Contusion of toe(s) with damage to nail 512276861 S90.211A Pain of to e of right foot 4765524315 50034 M79.674 [id number] KORY GARCIA [facility] Office [address] [place] [phone] 03/16/2024 11:31:04 03/19/2024 20:30:07 Contusion of toe(s) with damage to nail 290287468 S90.211A Pain of to e of right foot [id number] 14929 M79.674 Health Concerns Section Related Observation LastModified by Organization Detai ls LastModified Time None Recorded Concern Status LastModified by Organization Details LastModified Time None Recorded Advance Directives Directive None Recorded Payers Insurance Date Sequence Insurance Name Policy Number Policy Freeman Covered Member ID Freeman Member ID Guarantor Name 03/13/2024 1 *SELF PAY* Adele Louie 03/13/2024 1 *SELF PAY* Adele Louie Notes Date Note Type Note Provider Name and Address Organization Details Recorded Time 03/13/2024 text/html The patient presents with persistent pain in the right hallux following a traumatic injury that occurred at work on January 26, when they accidentally rammed a steel-plated recliner into their right great toe at work. The patient reports immediate severe pain and bruising, with a noticeable gap between the nail plate and nail bed since the incident. An x-ray taken immediately after the injury showed no fractures. The pain has decreased slightly but remains significant, especially when wearing shoes. The patient has no history of ingrown toenails prior to this injury. They have attempted to manage the pain with band-aids and careful clipping but have found these measures insufficient. KORY GARCIA DPM [address] [place], [phone], [facility] 03/14/2024 10:10:49 03/16/2024 text/html Patient presents today s/p total nail avulsion of the left hallux following a work comp injury. The patient states that they can now wear sandals comfortably, which was not possible before the nail removal due to rubbing. The patient notes that the redness has significantly decreased since the procedure. They experience some sensitivity at the top of the toe where the procedure was performed, particularly when wearing shoes, but overall, the irritation has lessened. TThey plan to look for wall taper helper, less snug shoes to alleviate discomfort. PRIOR HISTORY: The patient presents with persistent pain in the right hallux following a traumatic injury that occurred at work on January 26, when they accidentally rammed a steel-plated recliner into their right great toe at work. The patient reports immediate severe pain and bruising, with a noticeable gap between the nail plate and nail bed since the incident. An x-ray taken immediately after the injury showed no fractures. The pain has decreased slightly but remains significant, especially when wearing shoes. The patient has no history of ingrown toenails prior to this injury. They have attempted to manage the pain with band-aids and careful clipping but have found these measures insufficient. KORY GARCIA DPM [address] [place], [phone], [facility] 03/16/2024 14:24:16 OBGyn Episode No OBEpisode recorded.
[2025-06-19 20:12] VITALS: BP 128/83; PULSE 89; RESP 18; TEMP 36.8; O2SAT 97
--- NOTE | 2025-06-19 22:04 | ED_ITS ---
HPI - General Adult General Chief complaint: Fever Stated complaint: sent by provider for antibiotics Time Seen by Provider: 06/19/25 21:34 Source: patient Mode of arrival: ambulatory Limitations: no limitations History of Present Illness HPI narrative: 39-year-old female presents to the emergency department for evaluation of fever to 100.0 today at work. She has a history of recurrent urinary tract infections and has been struggling with left flank pain and dysuria for several weeks, worsening 2 days ago. She was evaluated in urgent care and was treated with 2 doses of fosfomycin. She has a history of infections that are multi antibiotic resistant. Review of our records shows that the last time she was treated for something similar was a year and half ago here but her culture was for pansensitive E coli. I am able to get into the [facility] records and see that she has had multiple urinary infections that have in fact been multi-drug resistant and I can see the culture from 3 days ago indicating E coli that was sensitive only to Macrobid, meropenem and Zosyn. Unfortunately, she is allergic to both Macrobid and ertapenem. I verify that these do sound like reliable allergies. I am uncertain if she has ever tried Sarah pen on. It sounds like she has had success with Zosyn in the past. She typically gets her care in [place] but states that she has had some privacy issues since she works there. Does not typically seek care through our health system but felt compelled to do so due to privacy concerns today. She is not having any vomiting, there is no weakness or other signs of severe dizziness or sepsis. She called her provider when she got the fever today and he advised that she present to the ED for IV antibiotics and admission. She denies any respiratory symptoms, she is not anticoagulated. No GI changes. She reports that she does typically use hip recs for UTI prophylaxis, and an [id number] supplement. Unfortunately, those have not been helping today. She is a smoker. Denies a history DVT or PE. Not anticoagulated. She denies other systemic symptoms today times 12 systems with the exception of the flank pain and urinary burning. Past medical history reviewed from [facility] records. Allergies reviewed. Notable for history of anxiety and recurrent ESBL urinary infections. Main home meds are the hip Nate and fluoxetine. Related Data Home Medications ?Medication ?Instructions ?Recorded ?Confirmed albuterol sulfate 90 mcg/actuation 2 puff inhalation Q 4-6H wheezing 09/13/23 06/19/25 aerosol inhaler (Ventolin HFA) Allergies Allergy/AdvReac Type Severity Reaction Status Date / Time ertapenem Allergy Severe Hives Verified 06/19/25 22:56 nitrofurantoin (From Allergy Mild hands and Verified 06/19/25 22:56 Macrobid) feet itchy and painful PFSH PFSH Social History What is your current living situation?: I presently have a place to live Problems where you live: no known problems In the past 12 months, utilities in danger of being shut off: no In past 12 months, lack of transportation kept you from medical appts, meetings, work, or getting things needed for daily living: no In the past 12 mos, have been you worried that your food would run out before you had money to buy more?: never true In the past 12 mos, the food you bought just didn't last and you didn't have money to buy more?: never true Highest level of school completed/degree received: 10th grade Smoking Status: Current every day smoker What tobacco products do you use: cigarettes Smoking packs per day: 1 Smoking cigarettes per day: 20.0 Years smoked: 15 Smoking pack-years: 15.00 Do you use any of these nicotine containing products: None Second hand tobacco smoke exposure: Yes How often do you have a drink containing alcohol: never How often do you have six or more drinks on one occasion: Never AUDIT-C Alcohol total score: 0 Non-prescribed substance use: denies use Caffeine: No How often does anyone, including family, friends and others, physically hurt you : never How often does anyone, including family, friends and others, insult or talk down to you: never How often does anyone, including family, friends and others, threaten you with harm: never How often does anyone, including family, friends and others, scream or curse at you: never service: No Exam Const: Vital Signs, click to edit/add: Vital Signs - 24 hr 06/19/25 20:12 06/19/25 23:14 Temperature 98.3 F Pulse Rate [Right Pulse Oximeter] 89 79 Respiratory Rate 18 16 Blood Pressure [Ri ght Upper Arm] 128/83 102/63 Pulse Oximetry 97 96 Oxygen Delivery Me thod Room Air Room Air Documenting provider has reviewed patient's vital signs: yes Common normals: no apparent distress General appearance: cooperative and well kempt HENMT: Common normals: normocephalic, moist oral mucous membranes and oropharynx normal Head and scalp: normocephalic Face and sinus: normal facial exam Mouth: oral and palatal mucosa normal Eye: Common normals: conjunctivae normal General eye: normal appearance of both eyes Conjunctiva: conjunctiva(e) normal Neck & C-Spine: General: normal visual inspection Resp: Common normals: normal respiratory effort, no use of accessory muscles and clear to auscultation bilaterally Effort & inspection: able to speak in complete sentences Auscultation: clear to auscultation bilaterally Cardio: Common normals: regular rate, regular rhythm, S1 normal heart sound, S2 normal heart sound and no murmurs Rate: regular rate Rhythm: regular rhythm Heart sounds: S1 normal and S2 normal GI: Common normals: Normal to inspection, nondistended, normoactive bowel sounds present, soft to palpation, non-tender and no hepatosplenomegaly Palpation: soft and no hepatosplenomegaly : Other: Left lower CVA tenderness noted on exam. Extremity: Common normals: normal to inspection, normal capillary refill and no pedal edema Neuro: Speech: speech normal Motor exam: strength 5/5 throughout Psych: Appearance: well kempt Attitude: engaged Activity/motor behavior: appropriate eye contact Attention/concentration: attention grossly intact Memory/cognition: memory grossly intact Insight: insight good Judgement: judgment good Skin: Common normals: no rashes or lesions noted General skin exam: no rashes or lesions noted Course Course ED Course: 39-year-old female with recent diagnosis of urinary infection with interval development of fever, history of ESBL, culture positive, worsening an incomplete treatment on fosfomycin. I am concerned for pyelonephritis, fosfomycin is unlikely to be effective in treating this. Based on patient's prior cultures, the only potential treatment would be Zosyn or possibly meropenem. She does have a carbapenem allergy already though she may tolerate meropenem, Zosyn would be the safer choice certainly. Will place peripheral IV, obtain blood cultures, repeat urine culture urinalysis and typical sepsis labs. Begin Zosyn. Would li ke to do a CT of the kidney to look for abscess or other complicating abnormality based on her history of several weeks of symptoms and interval fever development. Anticipate hospitalization. Reevaluation(s) Reevaluation #1: Updated patient on findings. Prior cultures are reviewed. It looks like the only antibiotics that will worker Zosyn or meropenem. She has an allergy to ertapenem, I do not recommend challenging this with meropenem. Unfortunately I do not think I can arrange for times daily outpatient antibiotics for her, will need to admit to hospital. CT findings are suspicious for right-sided pyelonephritis. This combined with the recent fever and positive urine culture are worrisome for ascending infection. Repeat blood cultures have been drawn, repeat urinalysis and culture have been ordered as well. Will start Zosyn, admit for observation. Hospitalist to take over care and determined plan to co mplete treatment on antibiotics. Vital Signs Vital signs: Initial Vital Signs Temperature 98.3 F 06/19/25 20:12 Temperature Source Temporal Artery Scan 06/19/25 20:12 Pulse Rate 89 06/19/25 20:12 Pulse Rhythm Regular 06/19/25 20:12 Pulse Strength 3+ Normal 06/19/25 20:12 Respiratory Rate 18 06/19/25 20:12 Blood Pressure 128/83 06/19/25 20:12 Blood Pressure Mean 98 06/19/25 20:12 Blood Pressure Position Sitting 06/19/25 20:12 Pulse Oximetry 97 06/19/25 20:12 Oxygen Delivery Method Room Air 06/19/25 20:12 Vital Signs Temperature 98.3 F 06/19/25 20:12 Pulse Rate 89 06/19/25 20:12 Respiratory Rate 18 06/19/25 20:12 Blood Pressure 128/83 06/19/25 20:12 Pulse Oximetry 97 06/19/25 20:12 Oxygen Delivery Method Room Air 06/19/25 20:12 Temperature 97.6 F 06/20/25 01:44 Pulse Rate 77 06/20/25 01:44 Respiratory Rate 18 06/20/25 01:44 Blood Pressure 100/79 06/20/25 01:44 Pulse Oximetry 94 06/20/25 01:44 Oxygen Delivery Method Room Air 06/20/25 01:44 Medications Administered Medications: Discontinued Medications Generic Name Dose Route Start Last Admin Trade Name Freq PRN Reason Stop Dose Admin Piperacillin Sod/Tazobactam 100 mls @ 200 mls/hr 06/19/25 21:54 06/19/25 23:37 Sod 3.375 gm/ Sodium Chloride IVPB 06/19/25 21:55 Infused ONCE ONE Infusion Medical Decision Making Lab Data Lab results reviewed: Yes I reviewed the patient's lab results Lab results narrative: Mild leukocytosis, no signs of anemia. Preserved renal function and normal inflammatory markers. Prior urine cultures from [facility] reviewed as well Labs: Lab Results 06/19/25 Range/Units 22:35 WBC 12.00 H (4.50-11.00) K/uL RBC 4.66 (4.00-5.20) m/uL Hgb 15.2 (12.0-16.0) gm/dL Hct 44.1 (33.0-51.0) % MCV 95 (80-100) fL MCH 33 (26-34) pg MCHC 35 (32-36) gm/dL RDW Coeff of Abhay 13.0 (11.5-15.5) % Plt Count 406 (140-440) K/uL Neut % (Auto) 57.1 (42.0-72.0) % Lymph % (Auto) 35.0 (20-44) % [place] % (Auto) 6.3 (0.0-11.0) % Eos % (Auto) 0.7 (0.0-7.0) % Baso % (Auto) 0.2 (0.0-3.0) % Neut # (Auto) 6.90 (1.7-7.0) K/uL Lymph # (Auto) 4.20 H (0.90-2.90) K/uL [place] # (Auto) 0.80 (0.00-0.90) K/UL Eos # (Auto) 0.10 (0.00-0.50) K/uL Baso # (Auto) 0.00 (0.00-0.30) K/uL Abs Immat Gran (auto) 0.10 (0.00-0.30) K/uL Imm/Tot Granulo (auto) 0.7 % Sodium 136 (135-149) mmol/L Potassium 3.2 L (3.6-5.1) mmol/L Chloride 101 (96-114) mmol/L Carbon Dioxide 24 (20-32) mmol/L Anion Gap 11 (7-15) mEq/L BUN 3 L (5-24) mg/dL Creatinine 0.6 (0.5-1.5) mg/dL Estimated GFR 116 ml/min Glucose 88 (60-115) mg/dL Lactate 0.9 (0.5-1.9) mmol/L Calcium 8.7 (8.4-10.6) mg/dL Total Bilirubin 0.6 (0.1-1.5) mg/dL AST 18 (12-35) U/L ALT 21 (4-35) U/L Alkaline Phosphatase 89 (40-150) U/L C-Reactive Protein < 0.5 L (0.5-1.0) mg/dL Total Protein 7.2 (6.0-8.3) g/dL Albumin 4.5 (3.3-5.0) g/dL Imaging Data CT scan - abdomen: Attestation: I have reviewed the pertinent imaging results. My impression: No obvious renal stone but there is a little bit of hydronephrosis on the right. No obvious bladder wall thickening. Ovarian cyst present. Radiologist's impression: IMPRESSION: 1. No CT evidence of renal abscess. Questionable minimal right-sided hydronephrosis, nonspecific, but may reflect sequelae of recently passed calculus or ascending urinary tract infection. Clinical correlation recommended. 2. Mild diffuse colonic wall thickening. Correlate for mild colitis. 3. Grossly unchanged right adnexal cyst measuring 3.6 cm.
--- NOTE | 2025-06-19 22:11 | CRLHL7_ITS ---
For Patients: As a result of the Century Cures Act, medical imaging exams and procedure reports are released immediately into your electronic medical record. You may view this report before your referring provider. If you have questions, please contact your health care provider. INDICATION: Pyelonephritis. Concern for abscess. TECHNIQUE: CT abdomen and pelvis acquired with 85 cc Isovue 370 IV contrast. COMPARISON: CT abdomen and pelvis 03/20/2025. FINDINGS: Lower chest: Unremarkable. Liver: Unremarkable. Gallbladder and bile ducts: Cholecystectomy. No suspicious biliary dilatation. Pancreas: Unremarkable. Spleen: Unremarkable. Adrenal glands: Unremarkable. Kidneys: Symmetric renal enhancement. Questionable minimal right-sided hydronephrosis. No suspicious renal lesion or fluid collection/abscess. No significant perinephric fluid/fat stranding. No urinary calculi identified. GI tract: Mild diffuse colonic wall thickening. No bowel obstruction. Normal appendix. Vasculature: No abdominal aortic aneurysm. Grossly patent vasculature. Lymph nodes: No suspicious lymphadenopathy. Peritoneum/Abdominal Wall: No ascites or pneumoperitoneum. No acute abdominal wall abnormality. Small fat containing umbilical hernia. Pelvis: Normal bladder. Right adnexal cyst measuring 3.6 cm, similar to prior. Unchanged positioning of a left-sided tubal ligation clip Bones: No acute abnormality. IMPRESSION: 1. No CT evidence of renal abscess. Questionable minimal right-sided hydronephrosis, nonspecific, but may reflect sequelae of recently passed calculus or ascending urinary tract infection. Clinical correlation recommended. 2. Mild diffuse colonic wall thickening. Correlate for mild colitis. 3. Grossly unchanged right adnexal cyst measuring 3.6 cm. Please note that all CT scans at this facility use dose modulation, iterative reconstruction, and/or weight-based dosing when appropriate to reduce radiation dose to as low as reasonably achievable. Dictated by Adrian Ortega MD @ 06/19/2025 11:23:00 PM (Electronically Signed)
[2025-06-19 22:44] LABS: Lactate Sepsis w/Reflex* 0.9 mmol/L (0.5-1.9)
[2025-06-19 22:56] LABS: Hematocrit* 44.1 % (33.0-51.0); Hemoglobin* 15.2 gm/dL (12.0-16.0); Immature Granulocytes Pct Auto 0.7 %; Lymphocytes Absolute Auto 4.20 K/uL (0.90-2.90); Mean Corpuscular HGB Conc 35 gm/dL (32-36); Mean Corpuscular Hemoglobin 33 pg (26-34); Mean Corpuscular Volume 95 fL (80-100); RDW Coefficient of Variation % 13.0 % (11.5-15.5); Red Blood Count* 4.66 m/uL (4.00-5.20); White Blood Count* 12.00 K/uL (4.50-11.00)
[2025-06-19 23:01] LABS: Chloride* 101 mmol/L (96-114)
[2025-06-19] MEDS: PIPERACILLIN/TAZOBACTAM 3.375 GM in 0.9 % SODIUM CHLORIDE Mini-bag 100 ML IVPB (23:01)
[2025-06-19 23:02] LABS: Albumin* 4.5 g/dL (3.3-5.0); Immature Granulocytes Abs Auto 0.10 K/uL (0.00-0.30); Potassium* 3.2 mmol/L (3.6-5.1); Slide Review Reflex No; Sodium* 136 mmol/L (135-149)
[2025-06-19 23:04] LABS: Blood Urea Nitrogen* 3 mg/dL (5-24); Creatinine* 0.6 mg/dL (0.5-1.5); Estimated Glomerular Filt Rate 116 ml/min
[2025-06-19 23:05] LABS: Alanine Aminotransferase* 21 U/L (4-35); Alkaline Phosphatase* 89 U/L (40-150); Anion Gap 11 mEq/L (7-15); Aspartate Amino Transferase* 18 U/L (12-35); Bilirubin Total* 0.6 mg/dL (0.1-1.5); Calcium* 8.7 mg/dL (8.4-10.6); Carbon Dioxide* 24 mmol/L (20-32); Glucose* 88 mg/dL (60-115); Total Protein* 7.2 g/dL (6.0-8.3)
[2025-06-19 23:14] VITALS: BP 102/63; PULSE 79; RESP 16; O2SAT 96
[2025-06-20] VITALS (7 sets, daily range): BP systolic 93–118; BP diastolic 62–79; PULSE 66–89; RESP 16–18; TEMP 36.4–37.2; O2SAT 94–97; BMI 26.9; BMI 27.0
--- NOTE | 2025-06-20 02:11 | W.PM.THH&P_ITS ---
Telehealth- H&P: HPI History of Present Illness Time Seen by Provider: 02:11 Date Seen: 06/20/25 Chief complaint: sent by provider for antibiotics Narrative: Sugey Louie is seen as an Interactive Telehealth visit. Sugey Louie is a 39 year old female with a past medical history of recurrent urinary tract infections with MDRO who presents to the emergency department for evaluation of fever and IV antibiotics. Since Wednesday, patient has been having left flank pain, dysuria, urinary frequency, urinary urgency, and difficulty emptying. Symptoms worsening Wednesday and she was seen in urgent care and given 2 doses of fosfomycin. Symptoms worsened Wednesday and today developed a fever 100 with associated chills. For the fever also, she called her PCP who instructed her to present to the ED for possible admission for IV. Of note, during her recent urgent care visit, cultures were obtained, which ED physician was able to access those records, and cultures reportedly showed MDRO E. coli that is only sensitive to Macrobid, meropenem, and Zosyn. She otherwise currently denies any other symptoms including nausea, vomiting, night sweats, abdominal pain, change in bowel habits. She reports symptoms today are similar to urinary tract infections she has had in the past. ED course: -Vital signs on presentation significant for: Unremarkable -Initial laboratory evaluation significant for: WBC 12, potassium 3.2 -CT abdomen/pelvis revealed: No evidence of renal abscess. Questionable minimal right sided hydronephrosis, but may reflect sequelae of recently passed numerous or ascending urinary tract infection. Mild diffuse colonic wall thickening. Correlate follow-up colitis. No significant change right adnexal cyst measuring 3.6 cm. -Therapies provided in the emergency department included: [email or web address] Tele - Hospitalist team contacted for further evaluation and management. Review of Systems Status of ROS: Reports: 10 or more systems reviewed and unremarkable except as noted in History and below [facility] Social History What is your current living situation?: I presently have a place to live Problems where you live: no known problems In the past 12 months, utilities in danger of being shut off: no In past 12 months, lack of transportation kept you from medical appts, meetings, work, or getting things needed for daily living: no In the past 12 mos, have been you worried that your food would run out before you had money to buy more?: never true In the past 12 mos, the food you bought just didn't last and you didn't have money to buy more?: never true Highest level of school completed/degree received: 10th grade Smoking Status: Current every day smoker What tobacco products do you use: cigarettes Smoking packs per day: 1 Smoking cigarettes per day: 20.0 Years smoked: 15 Smoking pack-years: 15.00 Do you use any of these nicotine containing products: None Second hand tobacco smoke exposure: Yes How often do you have a drink containing alcohol: never How often do you have six or more drinks on one occasion: Never AUDIT-C Alcohol total score: 0 Non-prescribed substance use: denies use Caffeine: No How often does anyone, including family, friends and others, physically hurt you : never How often does anyone, including family, friends and others, insult or talk down to you: never How often does anyone, including family, friends and others, threaten you with harm: never How often does anyone, including family, friends and others, scream or curse at you: never service: No Meds Home Medications and Allergies Home Medications ?Medication ?Instructions ?Recorded ?Confirmed ?Type albuterol sulfate 90 mcg/actuation 2 puff inhalation Q 4-6H wheezing 09/13/23 06/19/25 History aerosol inhaler (Ventolin HFA) Allergies Allergy/AdvReac Type Severity Reaction Status Date / Time ertapenem Allergy Severe Hives Verified 06/19/25 22:56 nitrofurantoin (From Allergy Mild hands and Verified 06/19/25 22:56 Macrobid) feet itchy and painful Exam Narrative Exam Narrative: Physical Exam GENERAL: ?vital signs reviewed, well developed and nourished, in no distress HEENT: pupils are equal round and reactive to light, extraocular movements are grossly within normal limits and oral mucosa is moist. NECK: Supple without lymphadenopathy or thyromegaly according to nursing staff examination observation HEART: Regular rate and rhythm without any rubs, murmurs, or gallops. LUNGS: Clear to auscultation bilaterally with good air movement throughout ABDOMEN: Observation from nurse assisted exam, abdomen appears soft, nontender, and nondistended with Positive bowel sounds noted. + Right CVA tenderness; EXTREMITIES: Strength and sensation is observed to be grossly within normal limits in the upper and lower extremities.? No focal strength deficit is observed. SKIN:? Observed warm and dry with color normal Const Vital Signs, click to edit/add: Vital Signs - 24 hr 06/19/25 20:12 06/19/25 23:14 06/20/25 01:44 Temperature 98.3 F 97.6 F Pulse Rate [Left Pulse Oximeter] 77 Pulse Rate [Right Pulse Oximeter] 89 79 Respiratory Rate 18 16 18 Blood Pressure [Left Arm] 100/79 Blood Pressure [Right Upper Arm] 128/83 102/63 Pulse Oximetry 97 96 94 Oxygen Delivery Method Room Air Room Air Room Air Hospitalist - H&P: Result Labs Labs: Short CBC 06/19/25 Range/Units 22:35 WBC 12.00 H (4.50-11.00) K/uL Hgb 15.2 (12.0-16.0) gm/dL Hct 44.1 (33.0-51.0) % Plt Count 406 (140-440) K/uL BMP 06/19/25 22:35 Sodium 136 Potassium 3.2 L Chloride 101 Carbon Dioxide 24 BUN 3 L Creatinine 0.6 Glucose 88 Calcium 8.7 Liver Function 06/19/25 Range/Units 22:35 Total Bilirubin 0.6 (0.1-1.5) mg/dL AST 18 (12-35) U/L ALT 21 (4-35) U/L Alkaline Phosphatase 89 (40-150) U/L Albumin 4.5 (3.3-5.0) g/dL Assessment and Plan Assessment and plan (1) Pyelonephritis: Status: Acute Plan 39-year-old female with past medical history significant for recurrent urinary tract infections who presents to the emergency department for evaluation of fevers and worsening symptoms in setting of recent diagnosis of MDR E. coli UTI. # Clinical pyelonephritis # Leukocytosis # MDR E/coli UTI # History of recurrent urinary tract infections ? Most recent cultures from outside facility reportedly growing MDRO E. coli, only sensitive to Macrobid, meropenem, Zosyn ? Repeat urinalysis and cultures ipending, but may not be accurate due to recent antibiotic administration ? Empirically started on Zosyn; will continue -- start on IVFs --blood cultures obtained; follow up ? Continue to monitor # Hypokalemia -potassium 3.2 on presentation -check magnesium -repletion given -monitor and replete as needed # Chronic tobacco consumption -nicotine patch ordered -cessation counseling DVT prophylaxis: heparin Code status: Full Disposition: Pending clinical improvement and management above. Patient high risk as outlined above Total Time Spent Total Time Spent: >90 minutes Telehealth: Statement Statement Telehealth Visit: Today's History and Physical is provided via interactive telehealth by Nadja Escobar MD.? Patient is located at [facility].? Provider is located at [facility].? Nursing staff assisted with the patient's exam. The visit being done today meets criteria for a telehealth visit and the patient or patient?s parent/guardian is aware the visit is a telehealth visit. Camera Start Time: 02:11 Camera End Time: 02:28
[2025-06-20] MEDS: HEPARIN 5,000 UNIT/0.5 ML INJ 5000 UNIT SUBCUT ×2 (03:30→14:40)
[2025-06-20] MEDS: NICOTINE 21 MG PATCH 1 PATCH TRANSDERMA (03:31)
[2025-06-20] MEDS: LACTATED RINGERS 1000 ML 1,000 ML 100 ML IV ×2 (03:32→12:54)
[2025-06-20] MEDS: POTASSIUM CHLORIDE 10 MEQ CAPSULE ER 40 MEQ PO (05:04)
[2025-06-20] MEDS: PIPERACILLIN/TAZOBACTAM 3.375 GM in 0.9 % SODIUM CHLORIDE Mini-bag 100 ML IVPB (05:53)
[2025-06-20] MEDS: ACETAMINOPHEN 325 MG TABLET PO ×2 (06:25→12:55)
--- NOTE | 2025-06-20 07:15 | PC.NURSE ---
End of Shift Note 260 Patient has been pleasant and cooperative throughout shift. VSS. Afebrile. A&Ox4. Uses call light appropriately. Moves SBA. Call light within reach.
[2025-06-20 08:31] LABS: Hematocrit* 40.6 % (33.0-51.0); Hemoglobin* 13.8 gm/dL (12.0-16.0); Immature Granulocytes Abs Auto 0.02 K/uL (0.00-0.30); Immature Granulocytes Pct Auto 0.2 %; Lymphocytes Absolute Auto 3.10 K/uL (0.90-2.90); Mean Corpuscular HGB Conc 34 gm/dL (32-36); Mean Corpuscular Hemoglobin 33 pg (26-34); Mean Corpuscular Volume 96 fL (80-100); RDW Coefficient of Variation % 13.0 % (11.5-15.5); Red Blood Count* 4.22 m/uL (4.00-5.20); White Blood Count* 8.40 K/uL (4.50-11.00)
[2025-06-20 08:34] LABS: Slide Review Reflex No
[2025-06-20 08:39] LABS: Albumin* 3.6 g/dL (3.3-5.0); Chloride* 105 mmol/L (96-114); Potassium* 3.7 mmol/L (3.6-5.1); Sodium* 136 mmol/L (135-149)
[2025-06-20 08:41] LABS: Blood Urea Nitrogen* 5 mg/dL (5-24); Creatinine* 0.8 mg/dL (0.5-1.5); Est. Creatinine Clearance* 90.90; Estimated Glomerular Filt Rate 95 ml/min
[2025-06-20 08:42] LABS: Alanine Aminotransferase* 18 U/L (4-35); Alkaline Phosphatase* 71 U/L (40-150); Anion Gap 7 mEq/L (7-15); Aspartate Amino Transferase* 21 U/L (12-35); Bilirubin Total* 0.6 mg/dL (0.1-1.5); Calcium* 8.1 mg/dL (8.4-10.6); Carbon Dioxide* 24 mmol/L (20-32); Glucose* 105 mg/dL (60-115); Total Protein* 5.8 g/dL (6.0-8.3)
[2025-06-20] MEDS: LACTATED RINGERS 1000 ML 1,000 ML IV ×2 (10:28→20:23)
--- NOTE | 2025-06-20 12:59 | PM.IMPN1 ---
Assessment and Plan Assessment and plan (1) ESBL (extended spectrum beta-lactamase) producing bacteria infection: Problem comment: - recurrent, last + culture collected at [facility] 06/17 - notably cleared after Fosfomycin in 06/02 (U Cx after this + for Klebsiella) - reviewed with ID on 06/20: recommend finishing course of Fosfomycin vs trial of IV Meropenem (hives with Ertapenem), patient strongly prefers IV antibiotics given associated symptoms and history Status: Acute (2) Pyelonephritis: Problem comment: - R flank pain, mild R sided nonspecific hydronephrosis on 06/19 CT - mild hypotension, currently no fever or tachycardia but will follow closely Status: Acute (3) Recurrent UTI: Problem comment: - multiple bacteria (Klebsiella, E faecalis, ESBL) - has seen both ID and Urology - reviewed with ID by phone on 06/20, see above - recommend outpatient Gynecology f/u Status: Acute (4) Anxiety and depression: Status: Acute (5) Tobacco dependence: Problem comment: - patch prn Status: Acute (6) Right ovarian cyst: Problem comment: - incidental finding on CT 06/19, outpatient f/u Status: Acute Plan - trial of Meropenem per above, continue IVFs, follow VS closely - likely d/c home 1-2 days pending clinical course Subjective Date Seen: 06/20/25 Interval history: Sugey was admitted to the hospital on 06/19/25 for R sided flank pain in the setting of known ESBL UTI, clinical concern for pyelonephritis. Was febrile at home prior to presentation with worsening R sided back pain; in the ER noted to have a WBC of 12 with mild R sided hydronephrosis, nonspecific but possibly related to ascending UTI. History of recurrent UTIs (5+ truly positive cultures in her EPIC chart in the past 5 months, has grown Klebsiella, Enteroccocus, and ESBL). Last + ESBL culture collected at D1 during ER visit on 06/17/25. She was given Fosfomycin in the Emergency Room on 06/17/25, then took a second dose at home prior to presenting to our ER on 06/19/25 for her worsening symptoms. History of hives with Ertapenem, Zosyn initiated upon admission 06/19/25. Today, has had minimal UOP. Blood pressure lower than baseline (90s/60s), hasn't felt well enough to get out of bed much today. Subjective fevers intermittently. Has seen both ID and Urology in the past; Gynecology followup has been recommended. Exam Narrative: Exam Narrative: GEN: Alert and oriented, appears ill but nontoxic, laying in bed HEENT: Normal external ears, EOMIs bilaterally, no scleral icterus CV: RRR, no murmurs R: LCTA bilaterally without concerning wheezing Back: Normal contours, mild R sided CVA ttp Ext: wwp, no concerning edema Skin: No concerning skin lesions or rashes on exposed skin Neuro: No focal deficits Psych: Appropriate Const: Vital Signs, click to edit/add: Vital Signs - 24 hr 06/19/25 20:12 06/19/25 23:14 06/20/25 01:44 Temperature 98.3 F 97.6 F Pulse Rate [Left P ulse Oximeter] 77 Pulse Rate [Right Pulse Oximeter] 89 79 Respiratory Rate 18 16 18 Blood Pressure [Le ft Arm] 100/79 Blood Pressure [Ri ght Upper Arm] 128/83 102/63 Pulse Oximetry 97 96 94 Oxygen Delivery Me thod Room Air Room Air Room Air 06/20/25 02:00 06/20/25 08:13 Temperature 97.6 F Pulse Rate [Left P ulse Oximeter] 77 74 Pulse Rate [Right Pulse Oximeter] Respiratory Rate 18 16 Blood Pressure [Le ft Arm] 100/79 93/68 Blood Pressure [Ri ght Upper Arm] Pulse Oximetry 94 96 Oxygen Delivery Me thod Room Air Room Air Labs Labs: Laboratory Results - last 24 hr 06/19/25 06/20/25 22:35 07:00 WBC 12.00 H 8.40 RBC 4.66 4.22 Hgb 15.2 13.8 Hct 44.1 40.6 MCV 95 96 MCH 33 33 MCHC 35 34 RDW Coeff of Abhay 13.0 13.0 Plt Count 406 367 Neut % (Auto) 57.1 53.8 Lymph % (Auto) 35.0 36.9 [place] % (Auto) 6.3 7.4 Eos % (Auto) 0.7 1.5 Baso % (Auto) 0.2 0.2 Neut # (Auto) 6.90 4.51 Lymph # (Auto) 4.20 H 3.10 H [place] # (Auto) 0.80 0.60 Eos # (Auto) 0.10 0.13 Baso # (Auto) 0.00 0.02 Abs Immat Gran (auto) 0.10 0.02 Imm/Tot Granulo (auto) 0.7 0.2 Sodium 136 136 Potassium 3.2 L 3.7 Chloride 101 105 Carbon Dioxide 24 24 Anion Gap 11 7 BUN 3 L 5 Creatinine 0.6 0.8 Estimated Creat Clear 90.90 Estimated GFR 116 95 Glucose 88 105 Lactate 0.9 Calcium 8.7 8.1 L Magnesium 1.8 Total Bilirubin 0.6 0.6 AST 18 21 ALT 21 18 Alkaline Phosphatase 89 71 C-Reactive Protein < 0.5 L < 0.5 L Total Protein 7.2 5.8 L Albumin 4.5 3.6
[2025-06-20] MEDS: MEROPENEM 1 GM in 0.9 % SODIUM CHLORIDE Mini-bag 100 ML IVPB (14:40)
[2025-06-20 16:06] LABS: Appearance Urine Turbid (Clear)
[2025-06-21] MEDS: MEROPENEM 1 GM in 0.9 % SODIUM CHLORIDE Mini-bag 100 ML IVPB ×2 (00:11→08:26)
[2025-06-21 03:00] VITALS: BP 119/66; PULSE 76; RESP 16; TEMP 36.9; O2SAT 93
[2025-06-21] MEDS: NICOTINE 21 MG PATCH 1 PATCH TRANSDERMA (03:17)
[2025-06-21] MEDS: HEPARIN 5,000 UNIT/0.5 ML INJ 5000 UNIT SUBCUT (03:17)
--- NOTE | 2025-06-21 05:32 | PC.NURSE ---
End of Shift Note 260 PAtient was very cooperative throughout the shift. VSS. Afebrile. SBA. Patient's right AC IV discontinued. Ultrasound guided IV placed on right forearm. Patient uses call light appropriately. Call light within reach.
[2025-06-21 06:18] LABS: Hematocrit* 37.0 % (33.0-51.0); Hemoglobin* 12.5 gm/dL (12.0-16.0); Immature Granulocytes Abs Auto 0.02 K/uL (0.00-0.30); Immature Granulocytes Pct Auto 0.2 %; Lymphocytes Absolute Auto 2.90 K/uL (0.90-2.90); Mean Corpuscular HGB Conc 34 gm/dL (32-36); Mean Corpuscular Hemoglobin 33 pg (26-34); Mean Corpuscular Volume 97 fL (80-100); RDW Coefficient of Variation % 13.1 % (11.5-15.5); Red Blood Count* 3.80 m/uL (4.00-5.20); White Blood Count* 8.04 K/uL (4.50-11.00)
[2025-06-21 06:20] LABS: Slide Review Reflex No
[2025-06-21 06:29] LABS: Chloride* 109 mmol/L (96-114); Sodium* 137 mmol/L (135-149)
[2025-06-21 06:31] LABS: Potassium* 3.9 mmol/L (3.6-5.1)
[2025-06-21 06:32] LABS: Anion Gap 2 mEq/L (7-15); Blood Urea Nitrogen* 4 mg/dL (5-24); Calcium* 8.2 mg/dL (8.4-10.6); Carbon Dioxide* 26 mmol/L (20-32); Creatinine* 0.6 mg/dL (0.5-1.5); Est. Creatinine Clearance* 121.20; Estimated Glomerular Filt Rate 116 ml/min; Glucose* 87 mg/dL (60-115)
--- NOTE | 2025-06-21 06:32 | PC.NURSE ---
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 Encouraged patient to try to void throughout the shift. Patient stated she did not feel the urge to go and that she felt no discomfort. Patient was bladder-scanned twice with the highest reading being 340 ml. No rigidity, distension or tenderness where noted when palpating the abdomen. Patient appeared to be sleeping comfortably through the night.
--- NOTE | 2025-06-21 08:17 | PM.DS1 ---
DS: Providers Provider Date Seen: 06/21/25 Date of admission: 06/20/25 12:56 Primary care physician: Jaydon Goyal MD Admitting Clinician: Kimmy Meza MD Attending Physician on discharge: Marjorie Barajas MD Date of Discharge: 06/21/25 DS: Diagnosis Discharge Diagnosis (1) ESBL (extended spectrum beta-lactamase) producing bacteria infection: Status: Acute Problem details: - recurrent, last + ESBL culture collected at D1 06/17 - notably cleared after Fosfomycin in 06/02 (U Cx after this + for Klebsiella) - reviewed with ID on 06/20: recommend finishing course of Fosfomycin vs trial of IV Meropenem (hives with Ertapenem), patient strongly prefers IV abx given histroy (2) Pyelonephritis: Status: Acute Problem details: - R flank pain, mild R sided nonspecific hydronephrosis on 06/19 CT - mild hypotension (but notably low BP at baseline), no fever, no tachycardia (3) Recurrent UTI: Status: Acute Problem details: - multiple bacteria (Klebsiella, E faecalis, ESBL) - has seen both ID and Urology - reviewed with ID by phone on 06/20, see above - recommend outpatient Gynecology f/u (4) Anxiety and depression: Status: Acute Problem details: - continued home Fluoxetine (5) Tobacco dependence: Status: Acute Problem details: - patch prn (6) Right ovarian cyst: Status: Acute Problem details: - incidental finding on CT 06/19, outpatient f/u DS: Summary Hospital Course Hospital Course: Sugey was admitted to the hospital on 06/19/25 for R sided flank pain in the setting of known ESBL UTI, clinical concern for pyelonephritis. Was febrile at home prior to presentation with worsening R sided back pain; in the ER noted to have a WBC of 12 with mild R sided hydronephrosis, nonspecific but possibly related to ascending UTI. History of recurrent UTIs (5+ positive cultures in her EPIC chart in the past 5 months; has grown Klebsiella, Enteroccocus, and ESBL). Last + ESBL culture collected in [place] ER during visit on 06/17/25. She was given Fosfomycin in the Emergency Room on 06/17/25, then took a second dose at home prior to presenting to our ER on 06/19/25 for her worsening symptoms. History of hives with Ertapenem, Zosyn initiated upon admission 06/19/25. Noted to have lower UOP during stay, improved with increased po intake and activity. Has seen both Urology and ID in the past, Marketing Secretary f/u recommended upon discharge given persistent symptoms. ID consulted 06/20, recommended trial of IV Meropenem (history of rash with Ertapenem), patient tolerated well. Appropriate for d/c on 06/21; offered complete course of oral Fosfomycin as treatment, but patient ultimately elected for IV coverage upon discharge. She will receive IV Meropenem Q8H through 06/23/25; medically appropriate to d/c home with close PCP f/u on 06/21/25. Status at Discharge Functional status at discharge: independent ambulation Overall status at discharge: patient is progressing back to baseline Time Spent with Patient Time attestation: Total time spent providing and/or coordinating discharge services: Time spent: Greater than 30 minutes Exam Narrative: Exam Narrative: GEN: Alert and oriented, laying comfortably in bed HEENT: EOMIs bilaterally, no scleral icterus CV: RRR, No concerning murmurs R: LCTA bilaterally without concerning wheezing Ext: wwp, no concerning edema Skin: No concerning skin lesions or rashes on exposed skin Neuro: Nonfocal Psych: Appropriate Const: Vital Signs, click to edit/add: Vital Signs - 24 hr 06/20/25 11:00 06/20/25 15:00 06/20/25 19:00 Temperature 98.1 F 98.9 F Pulse Rate [Left P ulse Oximeter] 74 89 82 Respiratory Rate 16 16 18 Blood Pressure [Le ft Arm] 97/66 112/67 118/62 Pulse Oximetry 96 97 97 Oxygen Delivery Me thod Room Air Room Air Room Air 06/20/25 23:00 06/21/25 03:00 Temperature 98.5 F 98.4 F Pulse Rate [Left P ulse Oximeter] 66 76 Respiratory Rate 18 16 Blood Pressure [Le ft Arm] 110/75 119/66 Pulse Oximetry 96 93 Oxygen Delivery Me thod Room Air Room Air DS: Data Data Completed and Pending Labs on day of discharge: Labs from last 24 hours 06/21/25 06/20/25 06/20/25 06:06 Unknown 07:00 WBC 8.04 8.40 RBC 3.80 L 4.22 Hgb 12.5 13.8 Hct 37.0 40.6 MCV 97 96 MCH 33 33 MCHC 34 34 RDW Coeff of Abhay 13.1 13.0 Plt Count 318 367 Neut % (Auto) 53.9 53.8 Lymph % (Auto) 36.1 36.9 [place] % (Auto) 7.6 7.4 Eos % (Auto) 2.0 1.5 Baso % (Auto) 0.2 0.2 Neut # (Auto) 4.33 4.51 Lymph # (Auto) 2.90 3.10 H [place] # (Auto) 0.60 0.60 Eos # (Auto) 0.16 0.13 Baso # (Auto) 0.02 0.02 Abs Immat Gran (auto) 0.02 0.02 Imm/Tot Granulo (auto) 0.2 0.2 Sodium 137 136 Potassium 3.9 3.7 Chloride 109 105 Carbon Dioxide 26 24 Anion Gap 2 L 7 BUN 4 L 5 Creatinine 0.6 0.8 Estimated Creat Clear 121.20 90.90 Estimated GFR 116 95 Glucose 87 105 Calcium 8.2 L 8.1 L Total Bilirubin 0.6 AST 21 ALT 18 Alkaline Phosphatase 71 C-Reactive Protein < 0.5 L Total Protein 5.8 L Albumin 3.6 Urine Color [place] A Urine Appearance Turbid A Urine pH 6.0 Ur Specific [place] 1.015 Urine Protein Negative Urine Glucose (UA) Negative Urine Ketones Trace A Urine Blood Negative Urine Nitrite Positive A Urine Bilirubin Negative Urine Urobilinogen 0.2 Ur Leukocyte Esterase Negative Urine RBC 0-2 Urine WBC 10-25 A Ur Squamous Epith Cells Moderate A Urine Bacteria Few A Preliminary micro results at discharge 06/19/25 22:35 Blood Culture - Preliminary Blood NO GROWTH AFTER 24 HOURS 06/20/25 Unknown Urine Culture - Preliminary Urine,Clean Catch Culture in Progress Discharge Plan Discharge Disposition: Home, Self-Care Date of Admission: 06/20/25 12:56 Attending Provider on Discharge: Marjorie Barajas Primary Care Provider: Sary Goyal Condition: Improved Anticipated Discharge Date/Time: 06/21/25 07:45 Discharge Medications: New nicotine 21 mg/24 hr Patch 24 Hour 1 patch transdermal Q24H Qty: 14 0RF Meropenem 1 GM 0.9 % SODIUM CHLORIDE Mini-bag 100 ML 200 mls/hr IVPB Q8H through 06/23/25 Ordered By: Marjorie Barajas MD Last Taken: 06/21/25 08:26 200 mls/hr Continued albuterol sulfate [Ventolin HFA] 90 mcg/actuation HFA aerosol inhaler 2 puff INHALATION Q4-6H fluoxetine 40 mg capsule 40 mg PO QAM Discharge Orders: Discharge Order (Routine); Ordered 06/21/25 Ordered By: Marjorie Barajas Patient Education: Nicotine (Absorbed through the skin) (Nicoderm CQ, Nicoderm CQ..., Meropenem (By injection), How to Stop Smoking (DC) Additional Instructions: You will need Meropenem IV every 8 hours through 06/23/25 (last dose Wednesday evening). Nicotine patch sent to pharmacy. I would continue to push fluids and make sure you're fully emptying your bladder every 3-[address] you see Dr. Goyal in f/u, please discuss a referral to Gynecology given recurrent UTIs. Activity Level: Activity as Tolerated Discharge Diet: Regular Follow Up Appointments: Jaydon Goyal MD [Referring, Family Practice] - 06/27/25 11:15 am Referral Note: [facility] for hospital follow-up, get a FIBER OPT[employer] ENGINEER referral. Forms: [employer] Info Instructions
[2025-06-21 08:28] VITALS: BP 105/63; PULSE 80; RESP 16; TEMP 36.9; O2SAT 92
[2025-06-21] MEDS: SODIUM CHLORIDE 0.9 % (FLUSH) 10 ML SYRINGE 5 ML IVF (09:08)
[2025-06-21] MEDS: FLUOXETINE HCL 20 MG CAPSULE 40 MG PO (09:08)
[2025-06-21 11:24] VITALS: BP 115/93; PULSE 74; RESP 16; TEMP 36.6; O2SAT 98
--- NOTE | 2025-06-21 12:08 | PC.NURSE ---
Pt discharged @ 1154 via ambulation, accompanied by male. Going back to home. IV remained in place due to q8h IV abx infusions until Wednesday (06/23/25). Pt reported understanding of discharge instructions. Forms signed. Final room check complete.
== END 2025-06-21 11:54 | disposition home or self-care (01) | DRG 463 ==
LOC: ED 21:54 → MEDSURG 06-20 01:34
PROVIDERS: Internal Medicine; Admitting Provider Family Medicine; Emergency Provider Family Medicine; PCP Internal Medicine Infectious Disease; Visit Provider Family Medicine
DX: N10 Acute pyelonephritis (principal); Z16.12 Extended spectrum beta lactamase (ESBL) resistance; E87.6 Hypokalemia; F41.9 Anxiety disorder, unspecified; F32.A Depression, unspecified; N83.201 Unspecified ovarian cyst, right side; F17.200 Nicotine dependence, unspecified, uncomplicated; I95.9 Hypotension, unspecified; Z87.440 Personal history of urinary (tract) infections; Z88.8 Allergy status to other drugs, medicaments and biological substances; Z88.1 Allergy status to other antibiotic agents
CPT/HCPCS: 36415; 51702; 51798; 74177; 80048; 80053; 81001; 83605; 83735; 85025; 86140; 87040; 87086; 99284; 99285; A9270; G0378; J1644; J2185; J2543; J7120; Q9967; S4990

== ENCOUNTER 2025-06-28 20:01 | Emergency (ER) | payer MEDICAID, SELFPAY ==
--- OUTSIDE RECORDS SUMMARY | 2025-06-28 20:03 | XMS_ITS | Clinical Summary ---
Author Organization [facility] Address [address] [place] [address] Care Team Providers Care Senior Planning Manager Name Role Phone Unavailable Primary Care Provider Unavailabl e Source Comments Patient records contain information from all sites at [facility]. For routine questions regarding patient records, call [phone] during business hours, M-F 8:00 AM - 5:00 PM Central Time. Record requests for emergency care only can be directed to [phone] at any time.[facility] Medications ascorbic acid, vitamin C, (Vitamin C) [...] drink = 0.6 oz pur e alcohol) [facility] Utilities Answer Date Recorded In the past [...] your living situation today? I [facility] a [facility] 12/28/2024 Comments Unknown Sex and Gender Information Value Date Recorded Sex Assigned at Female 12/28/2024 10:44 AM CDT Legal Sex Female 9:02 AM [employer] DEVELOPER Gender Identity Female 12/28/2024 10:44 AM CDT Sexual Orientation Straight 12/28/2024 10 :44 AM CDT Last Filed Vital Signs Vital Sign Reading Time Taken Comments Blood Pressure 124/80 10/11/2014 9:33 AM [employer] DEVELOPER Pulse 80 10/11/2014 9:33 AM [employer] DEVELOPER Temperature - - Respiratory Rate 16 10/11/2014 9:33 AM [employer] DEVELOPER Oxygen Saturation - - Inhaled Oxygen Concentration - - Weight 89.6 kg (197 lb 8.5 oz) 10/11/2014 9:33 A M [employer] DEVELOPER Height 169 cm (5' 6.54) 10/11/2014 9:33 AM [employer] DEVELOPER Body Mass Index 31.37 10/11/2014 9:33 AM [employer] DEVELOPER Plan of Treatment Health Maintenance Due Date [...] HIV-2 DNA/RNA test (FHV2Q). Test Performed by: [facility] [place] [address] Body Team Member: Roman Brown III, M.D. Blood 12/28/2013 10:5 6 AM CDT Anne Shafer M.D. LAB MICROBIOLOGY - BL OOD ORDERABLES Final Result POWERCHART from Last 3 Months or Most Recently Relevant to Health Maintenance Insurance [place] MEDICAID
--- OUTSIDE RECORDS SUMMARY | 2025-06-28 20:04 | XMS_ITS | Clinical Summary ---
Author Organization [email or web address] Address [address] [place] [id number] Care Team Providers Care Apprenticeship Representative Name Role Phone Bisi Moy PsyD, CHIOMA Unavailable Felicitas Nelson Unavailable [phone] aJydon Goyal MD Primary Care P rovider Allergies [...] 99 needs tubing and mask 3 Kit 1 Active Airs Disposable Nebulizer misc DIRECTED FOR HOME USE 1 Active albuterol HFA (PRO-AIR; VENTOLIN; PROVENTIL) 90 mcg/actuation inhalerIndicatio ns:Mild intermittent asthma without complication (HC) Inhale 1-2 Puffs by mouth every 4 hours if needed for Shortness Of Breath or Wheezing. 18 g 11 05/16/2025 2:50 PM CDT 5 Active ascorbic acid (vitamin C) (VITAMIN C) [...] 20 lozenges per day 576 Each 2 5 Active Cranberry Extract (Cranberry Concentrate) 500 mg capIndications:U TI due to extended-spectru m beta lactamase (ESBL) producing Escherichia coli Take 500 mg by mouth two times daily. 60 Capsule 5 5 Active FLUoxetine (PROZAC) 40 mg capsuleIndicatio ns:Anxiety and depression Take 1 Capsule (40 mg) by mouth once daily in the morning. 90 Capsule 3 5 Active hydrOXYzine HCL (ATARAX) 25 mg tabletIndication s:Anxiety and depression Take 1 Tablet (25 mg) by mouth at bedtime if needed for Itching. 25 Tablet 5 Active valACYclovir (VALTREX) 1 gram tabletIndication s:Herpes simplex virus (HSV) infection Take 2 tablets by mouth twice daily for 1 day - each outbreak 30 Tablet 05/16/2025 2:50 PM CDT 5 Active oxybutynin (DITROPAN) 5 mg tabletIndication s:Acute cystitis without hematuria Take 1 Tablet (5 mg) by mouth every 8 hours if needed (Bladder Spasms). 12 Tablet 5 Active oxyCODONE (ROXICODONE) 5 mg immediate release tabletIndication s:Acute cystitis without hematuria,ESBL (extended spectrum beta-lactamase) producing bacteria infection Take 1 Tablet (5 mg) by mouth every 4 hours if needed for Pain. 6 Tablet 5 Active ketorolac 10 mg tabletIndication s:Urinary symptom or sign Take 1 Tablet (10 mg) by mouth every 6 hours if needed for Pain. Maximum of 40 mg in 24 hours. Do not exceed 5 days use 15 Tablet 5 Active trimethoprim-sul famethoxazole 160-800 mg tab Take 1 Tablet by mouth two times daily. For 21 days 5 025 Discontinu ed(*Med complete/R egimen complete/L evel of care change) fosfomycin tromethamine (MONUROL) 3 gram pack packetIndication s:Acute cystitis without hematuria,ESBL (extended spectrum beta-lactamase) producing bacteria infection Mix 1 Packet (3 g) in liquid then take by mouth one time for 1 dose. 1 Packet 5 025 Discontinu ed(*Med complete/R egimen complete/L evel of care change) trimethoprim-sul famethoxazole (Bactrim DS) 160-800 mg tabIndications:A cute cystitis without hematuria Take 1 Tablet by mouth two times daily for 5 days. 10 Tablet 5 025 Active Problems Problem Noted Date Diagnosed Date UTI due to extended-spectrum beta lactamase (ESBL) producing Escherichia coli 06/20/2025 Cystitis with hematuria 05/26/2025 Ovarian mass 04/12/2025 [...] Encounters Date Type Department Care Team Description 06/27/2025 11:15 AM DIGITAL AD TRAFFICKER Office [facility] [address] [facility] [address] Jaydon Goyal MD Hospital F/U ([facility] ) 06/27/2025 Travel 06/21/2025 Orders Only [facility] Scanner 1 scan: (1-Ord) [facility], MULTIPLE LAB and PATHOLOGY RESULTS (06/19/25-06/21/25) , 06/21/2025 06/20/2025 Telephone [facility] [address] [place] [address] Jaydon Goyal MD Medication Management 06/19/2025 Orders Only [facility] Scanner 1 scan: (1-Ord) [facility], CT ABDOMEN PELVIS W CONTRAST, 06/19/2025 06/17/2025 4:05 PM DIGITAL AD TRAFFICKER - 06/17/2025 6:41 PM DIGITAL AD TRAFFICKER Emergency [facility] [address] [place] [address] Obdulia Droan PA Acute UTI (Primary Dx); History of ESBL E. coli infection Discharge Disposition: Home Self Care 06/17/2025 Travel 06/14/2025 E-Visit [facility] [address] [facility] [address] Jaydon Goyal MD Leave 06/05/2025 E-Consult [facility] [address] [facility] [address] [place] [address] Joanna Avery MD 06/04/2025 2:00 PM CDT - 06/04/2025 11:59 PM CDT Hospital Encounter [facility] [address] [place] [address] Felicitas Nelson PA Urinary symptom or sign 06/04/2025 12:00 PM CDT Office Visit [facility] [address] [place] [address] Felicitas Nelson PA Follow Up (Urinary symptoms) 06/04/2025 Telephone [facility] [address] [place] [address] Emmy Brown NP Establish Care 06/04/2025 Travel 06/04/2025 Orders Only [facility] [address] [place] [address] Felicitas Nelson PA <No scans attached> 05/31/2025 11:15 AM CDT Office Visit [facility] [address] [place] [address] Jaydon Goyal MD Hospital F/U; Serious Illness Conversation 05/30/2025 8:36 AM CDT - 05/30/2025 11:59 PM CDT Hospital Encounter [facility] [address] [place] [address] Jaydon Farnsworth MD Frequent UTI; History of ESBL E. coli infection 05/30/2025 Travel 05/29/2025 Patient Outreach [facility] [address] [place] [address] Marsha Friedman, RN Primary RN Care Management; Hospital F/U ([place] [address]) 05/26/2025 5:19 PM CDT - 05/28/2025 11:20 AM CDT Hospital Encounter [facility] [address] [place] [address] Belen Argueta DO Hospitalist, [facility] Md Lamb, Rebecca Salazar, Niecy Gutierrez MD Cudak, Markos Leigh, DO Cook, MARIA A Villalba Acute cystitis without hematuria (Primary Dx); ESBL (extended spectrum beta-lactamase) producing bacteria infection Discharge Disposition: Home Self Care 05/26/2025 Travel 05/25/[address] [address] Felicitas Nelson PA 05/23/2025 4:00 PM CDT Orders Only [address] [place] [address] Lab, Jessica <No scans attached> 05/23/2025 12:00 PM CDT Phone Office Visit [facility] 100 [place] [address] eFlicitas Nelson PA Urinary Problem 05/23/2025 Travel 05/16/2025 2:15 PM CDT Telemedicine [facility] [address] [facility] [address] Emmy Landaverde NP Telehealth; Medication Management 05/14/2025 Social Work Encounter [facility] [address] [place] [address] Mini Goldsmith LISW 05/13/2025 Orders Only [facility] [address] [place] [address] Jaydon Farnsworth MD <No scans attached> 05/10/2025 11:15 AM CDT Office Visit [facility] [address] [place] [address] Jaydon Farnsworth MD Consult (UTI) 05/10/2025 Travel 05/01/2025 Patient Outreach [facility] Care Management Team Medical Case Management Ambulatory [address] [place] [address] Abbi Jane Care Coordination 04/25/2025 10:50 AM CDT Office Visit [facility] [address] [place] [address] Jaydon Goyal MD Depression (Follow up); Form (FMLA); Dysuria (Hurts, frequent, ) 04/25/2025 Travel 04/13/2025 Patient Outreach [facility] Care Management Team Medical Case Management Ambulatory [address] [place] [address] Abbi Jane Care Coordination 04/12/2025 9:10 AM CDT Office Visit [facility] [address] [place] [address] Jaydon Goyal MD [facility] (Mental health); UTI (pressure in the pelvic area, frequent urination, pain ) 04/12/2025 Patient Outreach [facility] Care Management Team Medical Case Management Ambulatory [address] [place] [address] Abbi Jane Care Coordination 04/12/2025 Travel 04/02/2025 Telephone [facility] [address] [place] [address] Cintia Stone NP Form 03/28/2025 11:30 AM CDT Office Visit [facility] [address] [place] [address] Cintia Stone NP Hospital F/U (DOD 03/23 - UTI. Patient states she's feeling better since being discharged. Denies any burning with urination, urinary frequency, and lower abdominal pain.); Anxiety (Patient states her anxiety has gotten worse over the past few months, dealing with some medical issues recently.) 03/28/2025 Travel from Last 3 Months Immunizations Immunization Administration Dates Next Due AMB Influenza, IIV3 (Age >=3 years)(Flu Clinic Only) 06/24/2010 COVID-19 vaccine (Altierre-[employer] NTech 30mcg/0.3mL) 12YO+ BIVALENT PF, MDV 06/18/2022 COVID-19 vaccine (Alt[employer] NTech 30mcg/0.3mL) PF, MDV 08/27/2020,08/06/2020 Hepatitis A (Adult) 08/23/2015,03/16/2012 Hepatitis B (Peds) 01/07/1998,07/09/1997, 997 Human Papilloma Virus Vaccine 06/23/2011 INFLUENZA, IIV3 PF (AGE >= 6 MO) 025,05/25/2024,07/08/2011,2008 Influenza A (H1N1), Inactivated 06/05/2009 Influenza, IIV3 (Age >=3 years) 05/11/2012,07/08,05/29/2008 Influenza, IIV4 06/24/2023, 2,05/05/2021,2018,08/27/2017,06/09/2015 MMR 11/03/1996 Td (Age >=7 Years) 10/15/2004,11/03/1996 [...] Sex Assigned at Female 08/08/2024 7:26 PM DIGITAL AD TRAFFICKER Legal Sex Female 5:23 AM DIGITAL AD TRAFFICKER Gender Identity Female 08/08/2024 7:26 PM DIGITAL AD TRAFFICKER Sexual Orientation Straight 08/08/2024 7: 26 PM DIGITAL AD TRAFFICKER Occupation Industry Job Start Date Job End [...] oz) M Vag Y Livin g Delivery Location:[facility] Comments:GDMA2 2013 Term 38w 2d 3.64 kg (8 lb 0.4 oz) M Vag Livin g Rauen rafita Delivery Location:[facility] Comments:GDM Last Filed Vital Signs Vital Sign Reading Time Taken Comments Blood Pressure 119/75 06/27/2025 11:17 AM DIGITAL AD TRAFFICKER Pulse 73 06/27/2025 11:17 AM DIGITAL AD TRAFFICKER Temperature 36.6 C (97.9 F) 06/17/2025 4:14 PM DIGITAL AD TRAFFICKER Respiratory Rate 18 06/17/2025 4:14 PM DIGITAL AD TRAFFICKER Oxygen Saturation 99% 06/27/2025 11:17 AM DIGITAL AD TRAFFICKER Inhaled Oxygen Concentration - - Weight 79.4 kg (175 lb) 06/17/2025 4:11 PM DIGITAL AD TRAFFICKER Height 170.2 cm (5' 7) 06/17/2025 4:11 PM DIGITAL AD TRAFFICKER Body Mass Index 27.41 06/17/2025 4:11 PM DIGITAL AD TRAFFICKER Plan of Treatment Upcoming Encounters Date Type Department Care Team (Late st Contact Info) Description 07/04/2025 10:00 AM DIGITAL AD TRAFFICKER Office Visit [facility] [address] [place] [address] Hilary Amor MD [address] [place] [address] 08/14/2025 2:00 PM DIGITAL AD TRAFFICKER Office Visit [facility] [address] [address] Joanna Avery MD [address] [id number] Health Maintenance Due Date Last Done Comments Hepatitis C screening for ag e 18-79 2002 Pneumococcal series for age 6-49 (1 of 2 - PCV) 2003 HPV series for age 9-45 (2 - 3-dose series) 07/21/2011 06/23/2011 Pap test for age 21-65 12/03/2023 , 12/02/2020, 03/16/2012, Additional history exists Tetanus booster 05/25/2024 05/25/2014, 03/2012, 10/15/2004, Additional history exists BMI (ht and wt on same day) for age 18+ 12/21/2025 12/21/2024, 05/31/2024, 08/18/2022, Additional history exists Depression screening for age 12+ 04/25/2026 04/25/2025, 04/12/2025, 04/12/2025, Additional history exists RSV vaccine for adults or (1 - 1-dose 75+ series) 2059 Hepatitis B series for 19+ Completed 01/07, 07/09/1997, 06/09/1997 HIV for age 15-65 Completed 02/03/2008 Influenza Vaccine Completed 05/18/2025, , 06/24/2023, Additional history exists Medical Devices Implanted Type Area [employer] Device Identifier Shelf Expiration Date Model / Serial / Lot Allyn Michelle #[id number] - [id number] Implanted:Qty : 2 on 09/18/2014 by Anne Shafer MD at [facility] Bilateral: Fallopian Tube D-BABS MEDICAL ROHIT 06/08/2016 [id number] / / [id number] Description:tubal ligation s ystem Procedures Procedure Name Priority Date/Time Associated Diagnosis Comments CBC WITH AUTO DIFFERENTIAL Routine 06/27/2025 12:16 PM DIGITAL AD TRAFFICKER Hospital discharge follow-up BASIC METABOLIC PANEL Routine 06/27/2025 12:16 PM DIGITAL AD TRAFFICKER Hospital discharge follow-up UTI due to extended-spectrum beta lactamase (ESBL) producing Escherichia coli CBC WITH AUTO DIFFERENTIAL Routine 06/27/2025 12:16 PM DIGITAL AD TRAFFICKER Hospital discharge follow-up LIPID PANEL Routine 06/27/2025 12:16 PM DIGITAL AD TRAFFICKER Screening cholesterol level HEMOGLOBIN A1C Routine 06/27/2025 12:16 PM DIGITAL AD TRAFFICKER Diabetes mellitus screening URINALYSIS REFLEX NOTE ([facility] REFLEX ONLY) Routine 06/27/2025 11:20 AM DIGITAL AD TRAFFICKER Urinary pain UA W/ SEDIMENT EXAM REFLEXED PER CRITERIA Routine 06/27/2025 11:20 AM DIGITAL AD TRAFFICKER Urinary pain SCAN-PATHOLOGY REPORT 06/21/2025 12:00 AM DIGITAL AD TRAFFICKER SCAN-CT INTERPRETATION 12:00 AM DIGITAL AD TRAFFICKER URINE CULTURE BHAVIK 06/17/2025 4:51 PM DIGITAL AD TRAFFICKER URINALYSIS MICROSCOPIC STAT 4:51 PM DIGITAL AD TRAFFICKER UA W/ SEDIMENT EXAM REFLEXED PER CRITERIA STAT 06/17/2025 4:51 PM DIGITAL AD TRAFFICKER CBC WITH AUTO DIFFERENTIAL STAT 06/17/2025 4:41 PM DIGITAL AD TRAFFICKER BASIC METABOLIC PANEL STAT 06/17/2025 4:41 PM DIGITAL AD TRAFFICKER CBC WITH AUTO DIFFERENTIAL STAT 06/17/2025 4:41 PM DIGITAL AD TRAFFICKER CBC WITH AUTO DIFFERENTIAL STAT 06/04/2025 2:38 [...] 04/12/2025 9:20 AM CDT 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 WHITE BLOOD CELL COUNT 14.5(H) 3.8 - 10.8 Thousand/ uL 06/28/2025 4:23 AM DIGITAL AD TRAFFICKER [facility] RED BLOOD CELL COUNT 4.70 3.80 - 5.10 Million/u L 06/28/2025 4:23 AM DIGITAL AD TRAFFICKER [facility] HEMOGLOBIN 15.5 11.7 - 15.5 g/dL 06/28/2025 4:23 AM DIGITAL AD TRAFFICKER [facility] HEMATOCRIT 46.2(H) 35.0 - 45.0 % 06/28/2025 4:23 AM DIGITAL AD TRAFFICKER [facility] MCV 98.3 80.0 - 100.0 fL 06/28/2025 4:23 AM DIGITAL AD TRAFFICKER [facility] MCH 33.0 27.0 - 33.0 pg 06/28/2025 4:23 AM DIGITAL AD TRAFFICKER [facility] MCHC 33.5 32.0 - 36.0 g/dL 06/28/2025 4:23 AM DIGITAL AD TRAFFICKER [facility] Comment: For adults, a slight decrease in the calculated MCHC value (in the range of 30 to 32 g/dL) is most likely not clinically significant; however, it should be interpreted with caution in correlation with other red cell parameters and the patient's clinical condition. RDW 12.8 11.0 - 15.0 % 06/28/2025 4:23 AM DIGITAL AD TRAFFICKER [facility] PLATELET COUNT 410(H) 140 - 400 Thousand/ uL 06/28/2025 4:23 AM DIGITAL AD TRAFFICKER [facility] MPV 10.4 7.5 - 12.5 fL 06/28/2025 4:23 AM DIGITAL AD TRAFFICKER [facility] NEUTROPHILS 66.5 % 06/28/2025 4:23 AM DIGITAL AD TRAFFICKER [facility] LYMPHOCYTES 24.6 % 06/28/2025 4:23 AM DIGITAL AD TRAFFICKER [facility] MONOCYTES 7.0 % 06/28/2025 4:23 AM DIGITAL AD TRAFFICKER [facility] EOSINOPHILS 1.5 % 06/28/2025 4:23 AM DIGITAL AD TRAFFICKER [facility] BASOPHILS 0.4 % 06/28/2025 4:23 AM DIGITAL AD TRAFFICKER [facility] ABSOLUTE NEUTROPHILS 9643(H) 1500 - 7800 cells/uL 06/28/2025 4:23 AM DIGITAL AD TRAFFICKER [facility] ABSOLUTE LYMPHOCYTES 3567 850 - 3900 cells/uL 06/28/2025 4:23 AM DIGITAL AD TRAFFICKER [facility] ABSOLUTE MONOCYTES 1015(H) 200 - 950 cells/uL 06/28/2025 4:23 AM DIGITAL AD TRAFFICKER [facility] ABSOLUTE EOSINOPHILS 218 15 - 500 cells/uL 06/28/2025 4:23 AM DIGITAL AD TRAFFICKER [facility] ABSOLUTE BASOPHILS 58 0 - 200 cells/uL 06/28/2025 4:23 AM DIGITAL AD TRAFFICKER [facility] Blood BLOOD SPECIMEN / Unknown [facility] Collect / Unknown 06/27/2025 12:16 PM DIGITAL AD TRAFFICKER 06/27/2025 12:16 PM DIGITAL AD TRAFFICKER Jaydon Goyal MD HEMATOLOGY Final Result Performing Organization Address City/[facility]/ZIP Co de Phone Number [facility] [address] [address], * HEMOGLOBIN A1C (06/27/2025 12:16 PM DIGITAL AD TRAFFICKER) HEMOGLOBIN A1C 5.1 <5.7 % 06/28/2025 5:35 AM DIGITAL AD TRAFFICKER [facility] Comment: For the purpose of screening for the presence of diabetes: <5.7% Consistent with the absence of diabetes 5.7-6.4% Consistent with increased risk for diabetes (prediabetes) > or =6.5% Consistent with diabetes This assay result is consistent with a decreased risk of diabetes. Currently, no consensus exists regarding use of hemoglobin A1c for diagnosis of diabetes in children. According to [place] Diabetes Association (ADA) guidelines, hemoglobin A1c <7.0% represents optimal control in non- diabetic patients. Different metrics may apply to specific patient populations. Standards of Medical Care in Diabetes(ADA). Blood BLOOD SPECIMEN / Unknown [facility] / Unknown 06/27/2025 12:16 PM DIGITAL AD TRAFFICKER 06/27/2025 12:16 PM DIGITAL AD TRAFFICKER Jaydon Goyal MD CHEMISTRY Final Result Performing Organization Address City/[facility]/ZIP Co de Phone Number [facility] [address] [address], * (ABNORMAL) LIPID PANEL (06/27/2025 12:16 PM DIGITAL AD TRAFFICKER) CHOLESTEROL, TOTAL 161 <200 mg/dL 06/28/2025 5:30 AM DIGITAL AD TRAFFICKER [facility] TRIGLYCERIDES 145 <150 mg/dL 06/28/2025 5:30 AM DIGITAL AD TRAFFICKER [facility] HDL CHOLESTEROL 46(L) > OR = 50 mg/dL 06/28/2025 5:30 AM DIGITAL AD TRAFFICKER [facility] NON HDL CHOLESTEROL 115 <130 mg/dL (calc) 06/28/2025 5:30 AM DIGITAL AD TRAFFICKER [facility] Comment: For patients with diabetes plus 1 major ASCVD risk factor, treating to a non-HDL-C goal of <100 mg/dL (LDL-C of <70 mg/dL) is considered a therapeutic option. CHOL/HDLC RATIO 3.5 <5.0 (calc) 06/28/2025 5:30 AM DIGITAL AD TRAFFICKER [facility] LDL-CHOLESTEROL 90 mg/dL (calc) 06/28/2025 5:30 AM DIGITAL AD TRAFFICKER [facility] Comment: Reference range: <100 Desirable range <100 mg/dL for primary prevention; <70 mg/dL for patients with CHD or diabetic patients with > or = 2 CHD risk factors. LDL-C is now calculated using the Nichole calculation, which is a validated novel method providing better accuracy than the Friedewald equation in the estimation of LDL-C. Jae LOMAS et al. ALEXA. 2013;310(19): 3767-4252 (http://education.[employer]/faq/CDL387) Blood BLOOD SPECIMEN / Unknown [facility] / Unknown 06/27/2025 12:16 PM DIGITAL AD TRAFFICKER 06/27/2025 12:16 PM DIGITAL AD TRAFFICKER us Jaydon Goyal MD CHEMISTRY Final Result [email or web address] [place] [address] [address], * (ABNORMAL) BASIC METABOLIC PANEL (06/27/2025 12:16 PM DIGITAL AD TRAFFICKER) Only the most recent of5 resultswithin the time period is included. SODIUM 138 135 - 146 mmol/L 06/28/2025 5:30 AM DIGITAL AD TRAFFICKER [facility] POTASSIUM 3.9 3.5 - 5.3 mmol/L 06/28/2025 5:30 AM DIGITAL AD TRAFFICKER [facility] CARBON DIOXIDE 27 20 - 32 mmol/L 06/28/2025 5:30 AM DIGITAL AD TRAFFICKER [email or web address] GLUCOSE 84 65 - 99 mg/dL 06/28/2025 5:30 AM DIGITAL AD TRAFFICKER [facility] Comment: Fasting reference interval CALCIUM 9.5 8.6 - 10.2 mg/dL 06/28/2025 5:30 AM DIGITAL AD TRAFFICKER [facility] CREATININE 0.60 0.50 - 0.99 mg/dL 06/28/2025 5:30 AM DIGITAL AD TRAFFICKER [facility] BUN/CREATININE RATIO 10 6 - 22 (calc) 06/28/2025 5:30 AM DIGITAL AD TRAFFICKER [facility] EGFR 116 > OR = 60 mL/min/1.7 3m2 06/28/2025 5:30 AM DIGITAL AD TRAFFICKER [facility] UREA NITROGEN (BUN) 6(L) 7 - 25 mg/dL 06/28/2025 5:30 AM DIGITAL AD TRAFFICKER [facility] ELECTROLYTE BALANCE 9 7 - 17 mmol/L (calc) 06/28/2025 5:30 AM DIGITAL AD TRAFFICKER [facility] CHLORIDE 102 98 - 110 mmol/L 06/28/2025 5:30 AM DIGITAL AD TRAFFICKER [facility] Blood BLOOD SPECIMEN / Unknown [facility] Collect / Unknown 06/27/2025 12:16 PM DIGITAL AD TRAFFICKER 06/27/2025 12:16 PM DIGITAL AD TRAFFICKER Jaydon Goyal MD CHEMISTRY Final Result Performing Organization Address City/[facility]/ZIP Co de Phone Number [email or web address] [address] [address], * URINALYSIS REFLEX NOTE ([facility] REFLEX ONLY) (06/27/2025 11:20 AM DIGITAL AD TRAFFICKER) NOTE UA SEE NOTE 06/28/2025 4:09 AM DIGITAL AD TRAFFICKER [facility] Comment: This urine was analyzed for the presence of WBC, RBC, bacteria, casts, and other formed elements. Only those elements seen were reported. Urine URINE SPECIMEN / Unknown Non-Blood / Unknown 06/27/2025 11:20 AM DIGITAL AD TRAFFICKER 06/27/2025 11:31 AM DIGITAL AD TRAFFICKER Jaydon Goyal MD SEND OUTS Final Result Performing Organization Address City/[facility]/ZIP Co de Phone Number [email or web address] [address] [address], [place] [phone] * (ABNORMAL) UA W/ SEDIMENT EXAM REFLEXED PER CRITERIA (06/27/2025 11:20 AM DIGITAL AD TRAFFICKER) Only the most recent of4 resultswithin the time period is included. COLOR YELLOW YELLOW 06/28/2025 4:09 AM DIGITAL AD TRAFFICKER [facility] SPECIFIC GRAVITY 1.011 1.001 - 1.035 06/28/2025 4:09 AM DIGITAL AD TRAFFICKER [facility] PH 6.5 5.0 - 8.0 06/28/2025 4:09 AM DIGITAL AD TRAFFICKER [facility] PROTEIN NEGATIVE NEGATIVE 06/28/2025 4:09 AM DIGITAL AD TRAFFICKER [facility] GLUCOSE NEGATIVE NEGATIVE 06/28/2025 4:09 AM DIGITAL AD TRAFFICKER [facility] KETONES NEGATIVE NEGATIVE 06/28/2025 4:09 AM DIGITAL AD TRAFFICKER [facility] BILIRUBIN NEGATIVE NEGATIVE 06/28/2025 4:09 AM DIGITAL AD TRAFFICKER [facility] OCCULT BLOOD TRACE(A) NEGATIVE 06/28/2025 4:09 AM DIGITAL AD TRAFFICKER [facility] NITRITE POSITIVE(A) NEGATIVE 06/28/2025 4:09 AM DIGITAL AD TRAFFICKER [facility] LEUKOCYTE ESTERASE 2+(A) NEGATIVE 06/28/2025 4:09 AM DIGITAL AD TRAFFICKER [facility] APPEARANCE CLEAR CLEAR 06/28/2025 4:09 AM DIGITAL AD TRAFFICKER [facility] WBC UA 20-40(A) < OR = 5 /HPF 06/28/2025 4:09 AM DIGITAL AD TRAFFICKER [facility] RBC UA 0-2 < OR = 2 /HPF 06/28/2025 4:09 AM DIGITAL AD TRAFFICKER [facility] SQUAMOUS EPITHELIAL CELLS UA 6-10(A) < OR = 5 /HPF 06/28/2025 4:09 AM DIGITAL AD TRAFFICKER [facility] BACTERIA UA MANY(A) NONE SEEN /HPF 06/28/2025 4:09 AM DIGITAL AD TRAFFICKER [facility] HYALINE CAST NONE SEEN NONE SEEN /LPF 06/28/2025 4:09 AM DIGITAL AD TRAFFICKER [facility] Urine URINE SPECIMEN / Unknown Non-Blood / Unknown 06/27/2025 11:20 AM DIGITAL AD TRAFFICKER 06/27/2025 11:31 AM DIGITAL AD TRAFFICKER us Jaydon Goyal MD URINE Final Result [facility] [place] [facility] [place] [address], [place] [phone] * SCAN-PATHOLOGY REPORT (06/21/2025 12:00 AM DIGITAL AD TRAFFICKER) us Scanner OTHER Final Result * SCAN-CT INTERPRETATION (06/19/2025 12:00 AM DIGITAL AD TRAFFICKER) Anatomical Region Laterality Modality Other us Scanner OTHER Final Result * (ABNORMAL) URINALYSIS MICROSCOPIC (06/17/2025 4:51 PM DIGITAL AD TRAFFICKER) Only the most recent of5 resultswithin the time period is included. RBC 3-5(A) 0-2, None Seen /HPF 06/17/2025 5:22 PM DIGITAL AD TRAFFICKER [facility] WBC 11-25(A) 0-2, 3-5, None Seen /HPF 06/17/2025 5:22 PM DIGITAL AD TRAFFICKER [facility] BACTERIA Many(A) None Seen, Rare, Few Bacteria/ HPF 06/17/2025 5:22 PM DIGITAL AD TRAFFICKER [facility] EPITHELIAL CELLS Moderate(A ) None Seen, Few Epi/HPF 06/17/2025 5:22 PM DIGITAL AD TRAFFICKER [facility] Urine URINE SPECIMEN / Unknown Non-Blood / Unknown 06/17/2025 4:51 PM DIGITAL AD TRAFFICKER 06/17/2025 4:54 PM DIGITAL AD TRAFFICKER Obdulia ROMERO URINE Final Result [facility] [address] [place] [address] * (ABNORMAL) URINE CULTURE (06/17/2025 4:51 PM DIGITAL AD TRAFFICKER) Only the most recent of6 resultswithin the time period is included. CULTURE RESULT(A) 06/19/2025 7:12 AM DIGITAL AD [facility] CULTURE >100,000 CFU/mL Escherichia coli 06/19/2025 7:12 AM DIGITAL AD TRAFFICKER [facility] Comment:ESBL-positive (Exten ded-spectrum beta-lactamase); multidrug-resistant organism. Urine URINE SPECIMEN / Unknown Non-Blood / Unknown 06/17/2025 4:51 PM DIGITAL AD TRAFFICKER 06/17/2025 4:54 PM DIGITAL AD TRAFFICKER Narrative Organism Antibiotic Method Susceptibility Escherichia coli [...] <=0.25: S Escherichia coli NITROFURANTOIN <=16: S us Obdulia ROMERO MICROBIOLOGY Final Result [facility] [address] [place] [address], [place] * US RENAL AND BLADDER COMPLETE (06/04/2025 [...] For Patients: As a result of the 21st Century Cures Act, medical imaging exams and [...] in caliber and appearance. Prevoid bladder volume [id number] mL. Postvoid residual volume measures 23 mL. [...] MD @ 05/31/2025 1:51:42 PM (Electronically Signed) us Jaydon Farnsworth MD MR Final R esult * (ABNORMAL) WHITE BLOOD COUNT (05/28/2025 5:44 AM CDT) Only the most recent of2 resultswithin the time period is included. WHITE BLOOD COUNT 12.2(H) 4.5 - 11.0 thou/cu mm 05/28/2025 6:10 AM CDT [facility] Blood BLOOD SPECIMEN / Unknown Venipuncture / Unknown 05/28/2025 5:44 AM CDT 05/28/2025 6:06 AM CDT us Rebecca Lamb NP HEMATOLOGY Fin al Result [facility] [address] [place] [id number] * HEMOGLOBIN (05/28/2025 5:44 AM CDT) HEMOGLOBIN 13.8 12.0 - 16.0 g/dL 05/28/2025 6:10 AM CDT [facility] MCV 97 80 - 100 fL 05/28/2025 6:10 AM CDT [facility] Blood BLOOD SPECIMEN / Unknown Venipuncture / Unknown 05/28/2025 5:44 AM CDT 05/28/2025 6:06 AM CDT us Rebecca Lamb PROCEDURE TECH HEMATOLOGY Fin al Result Performing Organization Address City/[facility] Co de Phone Number [facility] [address] [place] [address] * SODIUM (05/28/2025 5:44 AM CDT) Only the most recent of2 resultswithin the time period is included. SODIUM 140 136 - 145 mmol/L 05/28/2025 6:27 AM CDT [facility] Blood BLOOD SPECIMEN / Unknown Venipuncture / Unknown 05/28/2025 5:44 AM CDT 05/28/2025 6:06 AM CDT us Rebecca Lamb NP CHEMISTRY Fin al Result Performing Organization Address [facility] de Phone Number [facility] [address] [place] [address] * POTASSIUM (05/28/2025 5:44 AM CDT) Only the most recent of3 resultswithin the time period is included. POTASSIUM 4.5 3.5 - 5.1 mmol/L 05/28/2025 6:27 AM CDT [facility] Blood BLOOD SPECIMEN / Unknown Venipuncture / Unknown 05/28/2025 5:44 AM CDT 05/28/2025 6:06 AM CDT us Mari Salgado RN CHEMISTRY Final Result Performing Organization Address [facility] de Phone Number [facility] [address] [place] [address] * CREATININE (05/28/2025 5:44 AM CDT) Only the most recent of2 resultswithin the time period is included. eGFR >90 >90 mL/min/1.7 3m2 05/28/2025 6:27 AM CDT [facility] Comment:As of 2021, eG FR is calculated by the CKD-EPI creatinine equation without race adjustment. eGFR can be influenced by muscle mass, exercise, and diet. The reported eGFR is an estimation only and is only applicable if the renal function is stable. CREATININE 0.60 0.50 - 0.90 mg/dL 05/28/2025 6:27 AM CDT [facility] Blood BLOOD SPECIMEN / Unknown Venipuncture / Unknown 05/28/2025 5:44 AM CDT 05/28/2025 6:06 AM CDT Rebecca Lamb NP CHEMISTRY Fin al Result Performing Organization Address [facility]/ZIP Co de Phone Number [facility] [address] [place] [address] * C-REACTIVE PROTEIN (05/28/2025 5:44 AM CDT) Only the most recent of2 resultswithin the time period is included. Pathologist [facility] C-REACTIVE PROTEIN <0.3 <0.5 mg/dL 05/28/2025 6:29 AM CDT [facility] Blood BLOOD SPECIMEN / Unknown Venipuncture / Unknown 05/28/2025 5:44 AM CDT 05/28/2025 6:06 AM CDT Rebecca Lamb NP CHEMISTRY Fin al Result [facility] [address] [place] [address] * MAGNESIUM (05/28/2025 5:44 AM CDT) Only the most recent of3 resultswithin the time period is included. Pathologist [facility] MAGNESIUM 1.9 1.6 - 2.6 mg/dL 05/28/2025 6:29 AM CDT [facility] Blood BLOOD SPECIMEN / Unknown Venipuncture / Unknown 05/28/2025 5:44 AM CDT 05/28/2025 6:06 AM CDT us Rebecca Lamb PROCEDURE TECH CHEMISTRY Fin al Result [facility] [address] [place] [address] * (ABNORMAL) CBC W PLT NO DIFF (05/26/2025 5:51 PM CDT) Only the most recent of2 resultswithin the time period is included. WHITE BLOOD COUNT 16.0(H) 4.5 - 11.0 thou/cu mm 05/26/2025 5:57 PM CDT [facility] RED BLOOD COUNT 4.56 4.00 - 5.20 mil/cu mm 05/26/2025 5:57 PM T [facility] HEMOGLOBIN 14.7 12.0 - 16.0 g/dL 05/26/2025 5:57 PM CDT [facility] HEMATOCRIT 43.2 33.0 - 51.0 % 05/26/2025 5:57 PM T [facility] MCV 95 80 - 100 fL 05/26/2025 5:57 PM CDT [facility] MCH 32.2 26.0 - 34.0 pg 05/26/2025 5:57 PM T [facility] MCHC 34.0 32.0 - 36.0 g/dL 05/26/2025 5:57 PM T [facility] RDW 13.1 11.5 - 15.5 % 05/26/2025 5:57 PM T [facility] PLATELET COUNT 358 140 - 440 thou/cu mm 05/26/2025 5:57 PM T [facility] MPV 9.5 6.5 - 11.0 fL 05/26/2025 5:57 PM T [facility] Blood BLOOD SPECIMEN / Unknown Venipuncture / Unknown 05/26/2025 5:51 PM CDT 05/26/2025 5:54 PM CDT Belen Jurado DO HEMATOLOGY Final Result [facility] [address] [facility] [place] [address] * (ABNORMAL) POCT Urinalysis Dipstick Only [[id number]] (04/25/2025 12:00 PM CDT) Only the most recent of2 resultswithin the time period is included. SPECIFIC GRAVITY 1.010 1.001 - 1.035 04/25/2025 12:16 PM CDT [facility] PROTEIN NEGATIVE NEGATIVE 04/25/2025 12:16 PM CDT [facility] GLUCOSE NEGATIVE NEGATIVE 04/25/2025 12:16 PM CDT [facility] KETONES NEGATIVE NEGATIVE 04/25/2025 12:16 PM CDT [facility] BILIRUBIN NEGATIVE NEGATIVE 04/25/2025 12:16 PM CDT [facility] OCCULT BLOOD 1+(A) NEGATIVE 04/25/2025 12:16 PM CDT [facility] NITRITE NEGATIVE NEGATIVE 04/25/2025 12:16 PM CDT [facility] PH 6.0 5.0 - 8.0 04/25/2025 12:16 PM CDT [facility] LEUKOCYTE ESTERASE 3+(A) NEGATIVE 04/25/2025 12:16 PM CDT [facility] Urine URINE SPECIMEN / Unknown Non-Blood / Unknown 04/25/2025 12:00 PM CDT 04/25/2025 12:01 PM CDT Jaydon Goyal MD URINE Final Result [employer] [facility] [address] [place] [address], [place] [phone] [facility] [address] [place] [address], [place] [phone] * NOTCHING MACHINE OPERATOR THIN PREP PAP SCREEN IMAGED (12/02/2020 11:02 AM CDT) Case Report Gynecologic Cytology Report Case: [id number] Authorizing Provider: Emmy Brown NP Collected: 12/02/2020 1102 Ordering Location: [facility] Received: 12/02/2020 1120 Clinic First Screen: Snow Torres Specimen: NOTCHING MACHINE OPERATOR ThinPrep Vial Screening, Cervical 12/11/2020 2:[address] [facility] INTERPRETATION/ RESULT NEGATIVE FOR INTRAEPITHELIAL LESION OR MALIGNANCY (NIL) (none) 12/11/2020 2:[address] [facility] at 1440 CDT SPECIMEN ADEQUACY Satisfactory for evaluation Endocervical component present 12/11/2020 2:[address] [facility] HPV REQUEST HPV and PAP 12/11/2020 2:[address] [facility] Date of LMP 11/04/20 12/11/2020 2:[address] [facility] Last Pap Date 200912/11/2020 2:[address] [facility] Last Pap Result NIL 2:[address] [facility] Abnormal Pap or Shandon Bx in last 5 years No 12/11/2020 2:[address] [facility] Menstrual Status Regular Periods 12/11/2020 2:[address] [facility] Shandon Bx Done Today No 12/11/2020 2:[address] [facility] Additional Information None given 12/11/2020 2:[address] [facility] Comment: Cytology is screened at [facility] - [address], [place] [address] and [facility] - [address], [place] [address] and [facility] - [address] [place] [address] Interpreted at [facility] [place] [address] Automated Review Successful 12/11/2020 2:[address] [facility] Comment:Specimen processed s uccessfully by automated train braker device, ThinPrep Imaging System, [employer] ANCILLARY TESTING NOTCHING MACHINE OPERATOR HPV Ordered, Please see separate report 12/11/2020 2:[address] [facility] Note The pap test is a [...] and malignant lesions. 12/11/2020 2:41 PM CDT [facility] Other (Cervical) Non-Blood / Unknown 12/02/2020 11:02 AM CDT 12/02/2020 11:20 AM CDT Emmy Brown NP PATHOLOGY/CYTOLOGY Final Result [facility] [address] [place] [address], [place] * ANTI HIV 1/2 [19878.0] (02/03/2008 4:35 PM CDT) ANTI HIV 1/2 Non-reacti ve [facility] Blood specimen (specimen) BLOOD SPECIMEN / Unknown 02/03/2008 4:35 PM CDT 02/03/2008 4:17 PM CDT Esperanza Shen MD SEND OUTS Final Resu lt [facility] [place] ZIP [id number] [address] from Last 3 Months or Most Recently Relevant to Health Maintenance Additional Health Concerns Infection Onset Date Last Indicated ESBL Comment:Order contact precautions. Pt. does not meet criteria for discontinuation of precautions due to testing positive for ESBL after previously being cleared and is not eligible for screening per policy. +MDRO 06/17/2025, ESBL+ E. coli, urine [...] resolve the Infection Flag. 03/07/2025 03/07/2025 Insurance MEDICA CHOICE MEDICAID [address] [place] [id number] [facility] [address] [place] [address] [facility] [address] [address] [facility] [address] [facility] [place] [id number] [address] [place] [address] [id number] [place] [address] * Guarantor: DESHAWN DAMIAN/TRUDY [facility]LEB[facility] Account Type Relation to Patient Date of Phone Billing Address Occ Health/[employer]oh[employer] Employer [address] [place] [address] Advance Directives * Full Code (Latest Code [...] Code Status Discussion: Not Discussed Care Teams Apprenticeship Representative Relationship Specialty Start Date End Date Jaydon Goyal MD [facility] [place] [address] PCP - General Family Practice 04/12/25 Bisi Moy PsyD, LP [address] [place] [address] Psychology 12/13/17 Felicitas Nelson PA [address] [place] [address] Physician Pit Crew Support Worker 12/27/24
[2025-06-28 20:11] VITALS: BP 126/80; PULSE 71; RESP 16; TEMP 36.6; O2SAT 97; BMI 26.6
[2025-06-28 22:33] LABS: Appearance Urine Clear (Clear)
[2025-06-28 22:39] LABS: Chloride* 100 mmol/L (96-114); Hematocrit* 40.4 % (33.0-51.0); Hemoglobin* 13.9 gm/dL (12.0-16.0); Immature Granulocytes Pct Auto 0.6 %; Mean Corpuscular HGB Conc 34 gm/dL (32-36); Mean Corpuscular Hemoglobin 33 pg (26-34); Mean Corpuscular Volume 96 fL (80-100); Potassium* 4.2 mmol/L (3.6-5.1); RDW Coefficient of Variation % 12.9 % (11.5-15.5); Red Blood Count* 4.21 m/uL (4.00-5.20); Sodium* 135 mmol/L (135-149); White Blood Count* 11.05 K/uL (4.50-11.00)
[2025-06-28 22:41] LABS: Immature Granulocytes Abs Auto 0.10 K/uL (0.00-0.30); Lymphocytes Absolute Auto 3.90 K/uL (0.90-2.90); Slide Review Reflex No
[2025-06-28 22:43] LABS: Anion Gap 8 mEq/L (7-15); Blood Urea Nitrogen* 8 mg/dL (5-24); Calcium* 9.0 mg/dL (8.4-10.6); Carbon Dioxide* 27 mmol/L (20-32); Creatinine* 0.7 mg/dL (0.5-1.5); Est. Creatinine Clearance* 103.89; Estimated Glomerular Filt Rate 112 ml/min; Glucose* 94 mg/dL (60-115)
--- NOTE | 2025-06-28 23:02 | ED_ITS ---
HPI - General Adult General Chief complaint: Urogenital Problems, Female Stated complaint: bladder infection Time Seen by Provider: 06/28/25 21:42 Source: patient Mode of arrival: ambulatory Limitations: no limitations History of Present Illness HPI narrative: 39-year-old female presents to the emergency department with feelings of suprapubic area pain. She has a history of recurrent bladder infections and what is seeming more like chronic bladder infections now. She is not having any fever. Pain does radiate into the left flank a little bit. She is our primary care doctor yesterday, a urinalysis was collected and it did have some features of infection but the decision was made to wait until the culture had returned to treat. She has had several similar infections in the past. She was hospitalized at our facility 2 weeks ago because she had had bladder infection symptoms and then developed a fever. CT findings were suggestive of an ascending infection into the ureter. Blood cultures were ultimately negative. She was discharged on t.i.d. meropenem, completed this 5 days ago. Reports that her symptoms started to return about 48 hours after stopping the meropenem. She has not had any vomiting. She is requesting symptom management. It sounds like she has seen Urology in the past for these infections but it does not sound like they have evaluated her for chronic bladder pain. Past medical history is notable for continued tobacco use, multiple antibiotic allergies, ESBL infections, depression and anxiety. Recent discharge summary, cultures an outpatient notes are all reviewed. ROS is notable for the urinary symptoms but is otherwise benign times 12 systems. Related Data Home Medications ?Medication ?Instructions ?Recorded ?Confirmed albuterol sulfate 90 mcg/actuation 2 puff inhalation Q 4-6H wheezing 09/13/23 06/19/25 aerosol inhaler (Ventolin HFA) fluoxetine 40 mg capsule 40 mg PO QAM 06/20/25 Previous Rx's ?Medication ?Instructions ?Recorded Meropenem 1 gm 200 mls/hr IVPB Q8H 06/21/25 nicotine 21 mg/24 hr daily 1 patch transdermal Q24H #1 4 ea 06/21/25 transdermal patch Allergies Allergy/AdvReac Type Severity Reaction Status Date / Time ertapenem Allergy Severe Hives Verified 06/19/25 22:56 nitrofurantoin (From Allergy Mild hands and Verified 06/19/25 22:56 Macrobid) feet itchy and painful PFSH PFSH Medical History Right ovarian cyst ?N83.201 - Unspecified ovarian cyst, right side (ICD-10) Recurrent HSV (herpes simplex virus) ?B00.9 - Herpesviral infection, unspecified (ICD-10) Mild intermittent asthma ?J45.20 - Mild intermittent asthma, uncomplicated (ICD-10) Tobacco dependence ?F17.200 - Nicotine dependence, unspecified, uncomplicated (ICD-10) Anxiety and depression ?F41.9 - Anxiety disorder, unspecified (ICD-10) ?F32.A - Depression, unspecified (ICD-10) VITOR III (cervical intraepithelial neoplasia grade III) with severe dysplasia ?D06.9 - Carcinoma in situ of cervix, unspecified (ICD-10) Recurrent UTI ?N39.0 - Urinary tract infection, site not specified (ICD-10) Surgical History [place] teeth removed ?K08.409 - Partial loss of teeth, unspecified cause, unspecified class (ICD- 10) Hx of cholecystectomy ?Z90.49 - Acquired absence of other specified parts of digestive tract (ICD- 10) H/O LEEP ?Z98.890 - Other specified postprocedural states (ICD-10) Social History What is your current living situation?: I presently have a place to live Problems where you live: no known problems In the past 12 months, utilities in danger of being shut off: no In past 12 months, lack of transportation kept you from medical appts, meetings, work, or getting things needed for daily living: no In the past 12 mos, have been you worried that your food would run out before you had money to buy more?: never true In the past 12 mos, the food you bought just didn't last and you didn't have money to buy more?: never true Highest level of school completed/degree received: 10th grade Smoking Status: Current every day smoker What tobacco products do you use: ci garettes Smoking packs per day: 1 Smoking cigarettes per day: 20.0 Years smoked: 15 Smoking pack-years: 15.00 Do you use any of these nicotine containing products: None Second hand tobacco smoke exposure: Yes How often do you have a drink containing alcohol: never How often do you have six or more drinks on one occasion: Never AUDIT-C Alcohol total score: 0 Non-prescribed substance use: denies use Caffeine: No How often does anyone, including family, friends and others, physically hurt you : never How often does anyone, including family, friends and others, insult or talk down to you: never How often does anyone, including family, friends and others, threaten you with harm: never How often does anyone, including family, friends and others, scream or curse at you: never service: No Exam Const: Vital Signs, click to edit/add: Vital Signs - 24 hr 06/28/25 20:11 Temperature 97.8 F Pulse Rate [Pulse Oximeter] 71 Respiratory Rate 16 Blood Pressure [Ri ght Upper Arm] 126/80 Pulse Oximetry 97 Oxygen Delivery Me thod Room Air Documenting provider has reviewed patient's vital signs: yes Common normals: no apparent distress Other: Affect is flat but friendly and cooperative. HENMT: Common normals: normocephalic Head and scalp: normocephalic Eye: General eye: normal appearance of both eyes Neck & C-Spine: General: normal visual inspection Resp: Common normals: normal respiratory effort, no use of accessory muscles and clear to auscultation bilaterally Effort & inspection: able to speak in complete sentences Auscultation: clear to auscultation bilaterally Cardio: Common normals: regular rate, regular rhythm, S1 normal heart sound, S2 normal heart sound and no murmurs Rate: regular rate Rhythm: regular rhythm Heart sounds: S1 normal and S2 normal GI: Common normals: Normal to inspection, nondistended, normoactive bowel sounds present, soft to palpation, no hepatosplenomegaly and no masses Palpation: soft and no hepatosplenomegaly Other: Mild suprapubic tenderness, no mass. : Common normals: no CVA tenderness Bladder/kidney exam: no CVA tenderness Back & Pelvis: Common normals: no CVA tenderness Extremity: Common normals: normal to inspection Psych: Attitude: engaged Activity/motor behavior: appropriate eye contact Insight: insight good Judgement: judgment good Skin: Common normals: no rashes or lesions noted General skin exam: no rashes or lesions noted Course Course ED Course: 39-year-old female with persistent suprapubic pain, history of recurrent bladder infections and ESBL infections. Vitals reviewed. No fever, hypotension or tachycardia initially. Recommended that we 3 obtain a urinalysis, cultures. I recommended that we do some blood work to look for any signs of a systemic infection. Consider CT if there is any sign of elevated inflammatory markers, leukocytosis or other abnormal findings. Reevaluation(s) Reevaluation #1: Update: Does seem to have nitrites but no leukocyte esterase today. I do think that she has a chronic bladder infection but I do not see any signs of systemic spread at this time. I do not recommend treatment. I do recommend that she reconsider another appointment with Urology and that she keep her follow-up as planned with her primary care team and await their recommendations on her most recent culture. I do not recommend that we treat this infection unless she has fever, systemic symptoms or other similar findings. Counseled patient that smoking cessation often can be helpful in these situations I have also offered a prescription for Toradol as an anti-inflammatory pain medication and have given Flexeril at bedtime if needed for sleep. She can continue Tylenol and her ireb-eaa-hdgyuef Uristat. Alarm symptoms reviewed like fever, severe weakness or flank pain that would warrant ED re-evaluation. She verbalizes understanding and agreement. Written instructions provided. Vital Signs Vital signs: Initial Vital Signs Temperature 97.8 F 06/28/25 20:11 Temperature Source Temporal Artery Scan 06/28/25 20:11 Pulse Rate 71 06/28/25 20:11 Respiratory Rate 16 06/28/25 20:11 Blood Pressure 126/80 06/28/25 20:11 Blood Pressure Mean 95 06/28/25 20:11 Blood Pressure Position Sitting 06/28/25 20:11 Pulse Oximetry 97 06/28/25 20:11 Oxygen Delivery Method Room Air 06/28/25 20:11 Vital Signs Temperature 97.8 F 06/28/25 20:11 Pulse Rate 71 06/28/25 20:11 Respiratory Rate 16 06/28/25 20:11 Blood Pressure 126/80 06/28/25 20:11 Pulse Oximetry 97 06/28/25 20:11 Oxygen Delivery Method Room Air 06/28/25 20:11 Temperature 97.8 F 06/28/25 20:11 Pulse Rate 71 06/28/25 20:11 Respiratory Rate 16 06/28/25 20:11 Blood Pressure 126/80 06/28/25 20:11 Pulse Oximetry 97 06/28/25 20:11 Oxygen Delivery Method Room Air 06/28/25 20:11 Medical Decision Making Lab Data Lab results reviewed: Yes I reviewed the patient's lab results Lab results narrative: No significant leukocytosis, absolute neutrophil count is normal. Electrolytes normal. CRP normal. Urinalysis does have positive nitrites but negative le ukocyte esterase today and not very many white cells. Bacteria are present which is not atypical for her. Overall reassuring. Labs: Lab Results 06/28/25 06/28/25 Range/Units 22:11 22:30 WBC 11.05 H (4.50-11.00) K/uL RBC 4.21 (4.00-5.20) m/uL Hgb 13.9 (12.0-16.0) gm/dL Hct 40.4 (33.0-51.0) % MCV 96 (80-100) fL MCH 33 (26-34) pg MCHC 34 (32-36) gm/dL RDW Coeff of Abhay 12.9 (11.5-15.5) % Plt Count 353 (140-440) K/uL Neut % (Auto) 52.6 (42.0-72.0) % Lymph % (Auto) 35.7 (20-44) % [place] % (Auto) 8.9 (0.0-11.0) % Eos % (Auto) 2.0 (0.0-7.0) % Baso % (Auto) 0.2 (0.0-3.0) % Neut # (Auto) 5.80 (1.7-7.0) K/uL Lymph # (Auto) 3.90 H (0.90-2.90) K/uL [place] # (Auto) 1.00 H (0.00-0.90) K/UL Eos # (Auto) 0.20 (0.00-0.50) K/uL Baso # (Auto) 0.00 (0.00-0.30) K/uL Abs Immat Gran (auto) 0.10 (0.00-0.30) K/uL Imm/Tot Granulo (auto) 0.6 % Sodium 135 (135-149) mmol/L Potassium 4.2 (3.6-5.1) mmol/L Chloride 100 (96-114) mmol/L Carbon Dioxide 27 (20-32) mmol/L Anion Gap 8 (7-15) mEq/L BUN 8 (5-24) mg/dL Creatinine 0.7 (0.5-1.5) mg/dL Estimated Creat Clear 103.89 Estimated GFR 112 ml/min Glucose 94 (60-115) mg/dL Calcium 9.0 (8.4-10.6) mg/dL C-Reactive Protein < 0.5 L (0.5-1.0) mg/dL Urine Color Yellow (Yellow) Urine Appearance Clear (Clear) Urine pH 7.0 (5.0-8.5) Ur Specific [place] 1.015 (1.000-1.030) Urine Protein Negative (Negative) Urine Glucose (UA) Negative (Negative) Urine Ketones Negative (Negative) Urine Blood Trace-intact A (Negative) Urine Nitrite Positive A (Negative) Urine Bilirubin Negative (Negative) Urine Urobilinogen 0.2 (0.2-1.0) Ur Leukocyte Esterase Negative (Negative) Urine RBC 0-2 (0-2) Urine WBC 0-2 (0-5) Ur Squamous Epith Cells Few (None-Few) Urine Bacteria Many A (None) Discharge Plan Discharge Clinical Impression: Bladder infection, chronic Patient Disposition: Home, Self-Care Condition: Stable Additional Instructions: Chronic bladder infections can be very frustrating. At this time, you do have some mild markers of infection and some bacteria but not enough signs that we should start antibiotics. I do agree with the plan from your primary care team to wait for a culture and sensitivity prior to treatment of this current bladder issue. There are no signs in your blood work that this is causing a systemic or kidney infection. This is good news. I do think there is value for you to see the urologist again, more so to talk about the fact that you have gotten a breakthrough infection on your preventative antibiotic and that you are having frequent symptoms that they may be able to give advice regarding. Remember that if you have high fever over 100.4, severe weakness or other signs of sepsis, you should come to the emergency room. You may continue use of your a stat and other similar mvnz-nyv-qddswyz medications. I have given you a prescription for Toradol which is an anti- inflammatory pain medicine that I hope is helpful for you. I have also given you a few Flexeril tablets to use at bedtime if you need sleeping assistance. Stopping smoking may help reduce the inflammation in your bladder wall and allow this to heal as well. I would recommend trying to quit if possible. You are cleared to return to work and all other typical duties. Activity Level: No Restrictions Prescriptions: No Action albuterol sulfate [Ventolin HFA] 90 mcg/actuation HFA aerosol inhaler 2 puff INHALATION Q4-6H fluoxetine 40 mg capsule 40 mg PO QAM nicotine 21 mg/24 hr Patch 24 Hour 1 patch transdermal Q24H Qty: 14 0RF Meropenem 1 GM 0.9 % SODIUM CHLORIDE Mini-bag 100 ML 200 mls/hr IVPB Q8H through 06/23/25 Ordered By: Marjorie Barajas MD Last Taken: Unknown Follow Up/Referrals: Sary Goyal MD [Primary Care Provider, Infectious Disease] Stand Alone Forms: [employer] Info Instructions
== END 2025-06-28 23:13 | disposition home or self-care (01) ==
PROVIDERS: Emergency Provider Family Medicine; PCP Internal Medicine Infectious Disease
DX: N30.20 Other chronic cystitis without hematuria (principal); F17.210 Nicotine dependence, cigarettes, uncomplicated; Z88.1 Allergy status to other antibiotic agents
CPT/HCPCS: 36415; 80048; 81001; 85025; 86140; 87040; 87086; 99284

== ENCOUNTER 2025-07-28 18:52 | Emergency (ER) | payer MEDICAID, SELFPAY ==
--- OUTSIDE RECORDS SUMMARY | 2025-07-28 18:54 | XMS_ITS | Clinical Summary ---
Author Organization [facility] Address [address] [place] [address] Care Team Providers Care [place] Attacher Name Role Phone Unavailable Primary Care Provider Unavailabl e Source Comments Patient records contain information from all sites at [facility]. For routine questions regarding patient records, call [phone] during business hours, M-F 8:00 AM - 5:00 PM Central Time. Record requests for emergency care only can be directed to [phone] at any time.[facility] Medications MedicationSigDispense QuantityRefillsLast FilledStart DateEnd DateStatus ascorbic acid, vitamin C, (Vitamin C) 1,000 mg tablet Take 1 tablet (1,000 mg total) by mouth daily. 30 tablet 5Active methenamine (Hiprex) 1 gram tablet Indications:Cystitis Unspecified Without HematuriaTake 1 tablet (1 g total) by mouth 2 (two) times a day. 60 tablet 5Active Active Problems ProblemNoted DateDiagnosed DateAsthma Chronic Mild01/02/2014 Overview (12/29/2016): Asthma Chronic Mild Immunizations ImmunizationAdministration DatesNext VmiA9V4 All Forms06/05/2009Influenza, Jdmnqvxiisl12/17/2014,04/26/2009,05/29/2008Tdap1,03/16/2012 Family History Medical HistoryRelationNameCommentsDiabetesMother 1DiabetesMother 2RelationName StatusCommentsMother 1AliveMother 2 Social History Tobacco UseTypesPacks/DayYears UsedDateSmoking Tobacco: Every AqrIakisudyer431.8 Started: 09/28/2000Smokeless Tobacco: NeverAlcohol UseStandard Drinks/Week CommentsNot Currently0 (1 standard drink = 0.6 oz pure alcohol)[facility] Utilities AnswerDate RecordedIn the past 12 months has the electric, gas, oil, or water company threatened to shut off services in your home?Patient jdjazgwl24/22/2025 Hunger Vital SignAnswerDate RecordedWithin the past 12 months, you worried that your food would run out before you got the money to buymore.Patient declined 12/28/2024Within the past 12 months, the food you bought just didn't last and you didn't have money to get more.Patient xwoqhnjg01/22/2025PRAPARE - TransportationAnswerDate RecordedIn the past 12 months, has lack of transportation kept you from medical appointments or from getting medications?No 12/28/2024In the past 12 months, has lack of transportation kept you from meetings, work, or from getting things needed for daily living?No12/28/2024 Housing StabilityAnswerDate RecordedWhat is your living situation today?I have a steady place to live12/28/2024CommentsUnknownSex and Gender Information ValueDate RecordedSex Assigned at GagybEwhogr50/22/2025 10:44 AM CDTLegal Sex Dbjmls2909/10/2016 9:02 AM CSTGender YxzwrljgMjkksj43/22/2025 10:44 AM CDTSexual AdidedoabxxEokcftcs83/22/2025 10:44 AM CDT Last Filed Vital Signs Vital SignReadingTime TakenCommentsBlood Yaawrztb337/80010/11/2014 9:33 AM 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 Uubsj5369/05/2015 9:33 AM CSTTemperature--Respiratory Dggj333610/11/2014 9:33 AM CSTOxygen Saturation--Inhaled Oxygen Concentration--Tkxeqn14.6 kg (197 lb 8.5 oz)10/11/2014 9:33 AM OZQBrqjkm076 cm (5' 6.54)10/11/2014 9:33 AM CSTBody Mass Index31.37010/11/2014 9:33 AM 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 Plan of Treatment Health MaintenanceDue DateLast DoneCommentsHepatitis C Yzesflpiz1984Lipid (Cholesterol) Peprpqqzq26/10/2895Jqerqptys1984Hepatitis B Vaccines (1 of 3 - 19+ 3-dose series)2003Pneumococcal vaccine (0-49 years) (1 of 2 - PCV) 2003HPV Vaccines (2 - 3-dose series)Cervical/Vaginal Cancer Gwwiihxiv41/, 03/21/2012DTaP,Tdap,and Td Vaccines (3 - Td or Tdap), 03/16/2012Depression Screening (Annual PHQ-2) 08/09/2024sthma Action Plan509/sthma Control Test Ahswnhiaylnca00/16/2025sthma Management/Exacerbation Questionnaire (AMQ/AEQ) 12/22/2024OVID-19 Vaccine ( season), 05/21/2021, 08/27/2020, Additional history existsTobacco Cessation lghytgebdv05/05/2026 03/13/2025HIV YkwcizlkrGamieongn56/22/2014Influenza HkcrjssXiezublmy14/10/2025, 05/25/2024, 06/24/2023, Additional history existsIPV VaccinesAged OutNo longer eligible based on patient's age to complete this topic Procedures Procedure NamePriorityDate/TimeAssociated DiagnosisCommentsHIV-1/-2 AG AND AB LRQPTTLaqknxy42/22/2014 10:56 AM CDT from Last 3 Months or Most Recently Relevant to Health Maintenance Results * HIV-1/-2 Ag and Ab Screen (12/28/2013 10:56 AM CDT)ComponentValueRef RangeTest MethodAnalysis TimePerformed AtPathologist SignatureHIV-1/-2 AntibodyNegative NegativePOWERCHARTComment: Negative result does not rule out HIV infection. If acute HIV infection is suspected in a high-risk individual, submit plasma specimen for HIV-1 RNA quantification test (HIVQU) and/or HIV-2 DNA/RNA test (FHV2Q). Test Performed by: [place] [address] Embedded Software Engineer: Roman Brown III, M.D. Specimen (Source)Anatomical Location / LateralityCollection Method / Volume Collection TimeReceived QywoZnooa18/22/2014 10:56 AM CDT Narrative Authorizing ProviderResult TypeResult StatusAnne Shafer M.D.LAB MICROBIOLOGY - BLOOD ORDERABLESFinal ResultPerforming OrganizationAddress City/State/ZIP CodePhone Number POWERCHART from Last 3 Months or Most Recently Relevant to Health Maintenance Insurance * Guarantor: Betsy BaconAccount TypeRelation to PatientDate of PhoneBilling AddressPersonal/Nfatfu0209/02/[address] [place] [address]
--- OUTSIDE RECORDS SUMMARY | 2025-07-28 18:54 | XMS_ITS | Clinical Summary ---
Author Organization [employer] [facility] Address [address] [place] [id number] Care Team Providers Care Balance Screwhead Polisher Name Role Phone Bisi Moy PsyD, CHIOMA Unavailable Felicitas Nelson Unavailable [phone] Jaydon Goyal MD Primary Care P rovider Allergies Active AllergyReactionsCriticalityNoted ZyeuQocochedGgeicvkdjycLmainzd58/20/2025 ZohviucvcKcfj50/27/9083NnluceasmatlopTnrqKygv16/13/2012 Hands and feet, This reaction did not happen in when she took it. Had reaction 05/2016. Reaction in 2022, Diffuse body hives 2023 EdbbbcnfhdThaqiqfv76/20/2025 Medications MedicationSigDispense QuantityRefillsLast FilledStart DateEnd DateStatus nebulizer accessories kit Indications:WheezingFor home use. Length of need: 99 needs tubing and mask 3 Kit 04/02/2021ctive Airs Disposable Nebulizer misc DIRECTED FOR HOME USE04/04/2021ctive albuterol HFA (PRO-AIR; VENTOLIN; PROVENTIL) 90 mcg/actuation inhaler Indications:Mild intermittent asthma without complication (HC)Inhale 1-2 Puffs by mouth every 4 hours if needed for Shortness Of Breath or Wheezing. 18 g 111 2:50 PM CDT5Active ascorbic acid (vitamin C) (VITAMIN C) 1,000 mg tablet Take 1,000 mg by mouth once daily.Active methenamine hippurate (HIPREX) 1 gram tablet Take 1 g by mouth two times daily.Active nicotine 4 mg lozenge Indications:Tobacco dependencePlace 1 Lozenge (4 mg) in mouth, between cheek & gum every hour while awake as needed for Nicotine Craving. Max 20 lozenges per day 576 Each 5Active Cranberry Extract (Cranberry Concentrate) 500 mg cap Indications:UTI due to extended-spectrum beta lactamase (ESBL) producing Escherichia coliTake 500 mg by mouth two times daily. 60 Capsule 505Active FLUoxetine (PROZAC) 40 mg capsule Indications:Anxiety and depressionTake 1 Capsule (40 mg) by mouth once daily in the morning. 90 Capsule 5Active hydrOXYzine HCL (ATARAX) 25 mg tablet Indications:Anxiety and depressionTake 1 Tablet (25 mg) by mouth at bedtime if needed for Itching. 25 Tablet 5Active valACYclovir (VALTREX) 1 gram tablet Indications:Herpes simplex virus (HSV) infectionTake 2 tablets by mouth twice daily for 1 day - each outbreak 30 Tablet 05/16/2025 2:50 PM CDT15Active oxybutynin (DITROPAN) 5 mg tablet Indications:Acute cystitis without hematuriaTake 1 Tablet (5 mg) by mouth every 8 hours if needed (Bladder Spasms). 12 Tablet 5Active oxyCODONE (ROXICODONE) 5 mg immediate release tablet Indications:Acute cystitis without hematuria,ESBL (extended spectrum beta- lactamase) producing bacteria infectionTake 1 Tablet (5 mg) by mouth every 4 hours if needed for Pain. 6 Tablet 5Active ketorolac 10 mg tablet Indications:Urinary symptom or signTake 1 Tablet (10 mg) by mouth every 6 hours if needed for Pain. Maximum of 40 mg in 24 hours. Do not exceed 5 days use 15 Tablet 5Active fosfomycin tromethamine (MONUROL) 3 gram pack packet Indications:UTI due to extended-spectrum beta lactamase (ESBL) producing Escherichia coliMix 1 Packet (3 g) in liquid then take by mouth one time if needed (Take 1 packet every other day for 3 doses) for up to 3 doses. 3 Packet 5Active trimethoprim-sulfamethoxazole 160-800 mg tab Indications:Frequent UTITake 1 Tablet by mouth two times daily for 7 days. 14 Tablet Expired Active Problems ProblemNoted DateDiagnosed DateComplex ovarian cyst07/19/2025 Overview (07/19/2025): 1. Complex, likely hemorrhagic 2.7 cm left ovarian cyst on US 07/2025 UTI due to extended-spectrum beta lactamase (ESBL) producing Escherichia coli 06/20/2025ystitis with mooywuunn06/18/2025losed wedge compression fracture of L1 pfutqkti30/04/2025Frequent UTI12/29/2024 Overview (12/29/2024): Has seen infectious disease who recommended no test of cure. History of alcohol abuse12/15/2017MDD (major depressive disorder), recurrent episode, vuguslxv93/01/2018GAD (generalized anxiety disorder)12/07/2017Social anxiety bkbjyrqa60/01/2018Tobacco tjlrtaxvsl29/08/2012Mild intermittent asthma 04/21/2007Herpes simplex without mention of jjhdfmbpiqdc09/13/2007 Overview (04/21/2007): Recurrent on cheek VITOR III with severe vdsffcpot36/01/2004 Overview (12/16/2020): LEEP 08/07/2004: Margins, Ecto: Low grade involvemt, Endo: Free 04/2006: NIL 10/2006 NIL 04/2007: NIL 02/2008: NIL 12/2009: NIL 03/2012: NIL 03/2016: NIL 11/2020: NIL/HPV Negative Plan: Pap and HPV q 3 yr x 25 years Resolved Problems ProblemNoted DateDiagnosed DateResolved DateOvarian mass Acute cystitis without vzeuzbrvq60Hypokalemia03/20/2025 04/12/20254622Oqsnobhoafotxi42/12/202509/04/2025UTI due to extended-spectrum beta lactamase (ESBL) producing Escherichia coliHypokalemia /11/2024Severe zsuudn89ellulitis of left lower qydipkzhw80/djustment disorder with mixed anxiety and depressed moodepressive xsuqeasq04nxiety lxtzftif78Onychomycosisain in shoulder regnancyGestational diabetes mellitus, class A2URI (upper respiratory infection)07/24/2014 08/23/2015Rib pain on left sideMigraine, unspecified, without mention of intractable migraine without mention of status migrainosus holelithiasis03/16/2012Genital warts12/02/2020Infection due to ESBL-producing Escherichia coli04/12/2025 Overview (11/27/2016): 02/2016: She illustrates that antibiotics bring forth resistance reinforcing the impulse to not treat asymptomatic or tolerable urinary tract infection. ??For outpatients, quinolone sensitive acute pyelonephritis can be treated for 5-7 days but trimethoprim-sulfamethoxazole DS or betalactams should go 14 days. ??Inpatient durations are less clear but parenteral treatment shortens the beta lactams to 7 days. ??Lesser forms of urinary tract infection can be treated for shorter periods, perhaps 3 days, if there's an effective antibiotic. ??For Ms. Louie, it's way complicated by the lack of a bymouth drug. Tommy Ramirez MD Infectious Diseases & Internal Medicine Has used fosfomycin in the past 3 gm by mouth daily x 3 days. Yash Urrutia D.O., Family Medicine .................... 11/27/2016 11:51 AM Encounters DateTypeDepartmentCare XzdgXbukzslvfvd72/09/2025Results Follow-Up [facility] [address] [place] [address] Jaydon Goyal MD 07/16/2025 4:50 PM FISHING VESSEL DECKHAND - 07/16/2025 11:59 PM CSTHospital Encounter [facility] [address] [place] [address] Jaydon Goyal MD Ovarian mass07/16/20258318Vazmlr55/19/2025 11:15 AM CSTOffice Visit [facility] [address] [place] [address] Jaydon Goyal MD Hospital F/U ([facility]I - [facility] )06/27/20256058Wfusia79/13/2025Orders Only [facility] Scanner 1 scan: (1-Ord) [facility], MULTIPLE LAB and PATHOLOGY RESULTS (06/19/25- 06/21/25), 5108/20/2024Telephone [facility] [address] [place] [address] Jaydon Goyal MD Medication Idpjdjzwhb35/11/2025Orders Only [facility] Scanner 1 scan: (1-Ord) [facility], CT ABDOMEN PELVIS W CONTRAST, 06/19/2025 06/17/2025 4:05 PM [employer] VESSEL DECKHAND - 06/17/2025 6:41 PM CSTEmergency [facility] [address] [place] [address] Obdulia Doran PA Acute UTI (Primary Dx); History of ESBL E. coli infection Discharge Disposition: Home Self Care06/17/20253977Vxbjbb64/06/2025E-Visit [facility] [address] [place] [address] Jaydon Goyal MD Leave06/05/2025E-Consult [facility] [address] [address] [place] [address] Joanna Avery MD 06/04/2025 2:00 PM CDT - 06/04/2025 11:59 PM CDTHospital Encounter [facility] [address] [facility] [place] [address] Felicitas Nelson PA Urinary symptom or sign06/04/2025 12:00 PM CDTOffice Visit [facility] [address] [place] [address] Felicitas Nelson PA Follow Up (Urinary symptoms)06/04/2025Telephone [facility] [address] [place] [address] Emmy Brown NP Establish Care06/04/20251401Hbtnbk90/27/2025Orders Only [facility] [address] [place] [address] Felicitas Nelson PA <No scans attached>05/31/2025 11:15 AM CDTOffice Visit [facility] [address] [place] [address] Jaydon Goyal MD Hospital F/U; Serious Illness Xhvjvxuhkdgs42/22/2025 8:36 AM CDT - 05/30/2025 11:59 PM CDTHospital Encounter [facility] [address] [facility] [place] [address] Jaydon Farnsworth MD Frequent UTI; History of ESBL E. coli fogrdtduz19/22/8774Ipfqbn59/21/2025Patient Outreach [facility] [address] [place] [address] Marsha Friedman RN Primary RN Care Management; Hospital F/U (Lace 78)05/26/2025 5:19 PM CDT - 05/28/2025 11:20 AM CDTHospital Encounter [facility] [address] [facility] [place] [address] Belen Argueta, Hospitalist, [facility] Rebecca Sanchez, Niecy Gutierrez MD Cudak, Markos Leigh, Fer Keys MBBS Acute cystitis without hematuria (Primary Dx); ESBL (extended spectrum beta-lactamase) producing bacteria infection Discharge Disposition: Home Self Care05/26/20257283Gyjghy76/17/2025Telephone [facility] [address] [place] [address] Felicitas Nelson PA 05/23/2025 4:00 PM CDTOrders Only [facility] [address] [place] [address] Lab, Jessica <No scans attached>05/23/2025 12:00 PM CDTPhone Office Visit [address] [address] Felicitas Nelson PA Urinary Bjhpdem2105/23/20257107Kwxdbt67/08/2025 2:15 PM CDTTelemedicine [facility] [address] [place] [address] Emmy Landaverde NP Telehealth; Medication Mlworidgly27/06/2025Social Work Encounter [facility] [address] [place] [address] Mini Goldsmith LGSW 05/13/2025[facility] [address] [place] [address] Jaydon Farnsworth MD <No scans attached>05/10/2025 11:15 AM CDTOffice Visit [facility] [address] [place] [address] Jaydon Farnsworth MD Consult (UTI)05/10/20253702Qsggqv80/23/2025Patient Outreach [facility] Care Management Team Medical Case Management Ambulatory [address] [place], [place] [id number] Abbi Jane Care Coordinationfrom Last 3 Months Immunizations ImmunizationAdministration DatesNext DueAMB Influenza, IIV3 (Age >=3 years)(Flu Clinic Only)06/24/2010COVID-19 vaccine (AudionamixBioNTStuffBuff 30mcg/0.3mL) 12YO+ BIVALENT PF, MDV12COVID-19 vaccine (apomio-BioNTStuffBuff 30mcg/0.3mL) PF, MDV 08/27/2020,08/06/2020Hepatitis A (Adult)08/23/2015,03/16/2012Hepatitis B (Peds) 01/07/1998,07/09/1997,06/09/1997Human Papilloma Virus Tafdsui7506/23/2011 INFLUENZA, IIV3 PF (AGE >= 6 MO)05/18/2025,05/25/2024,07/08/2011,04/26/2009 Influenza A (H1N1), Wwffxshkglc78/28/2009Influenza, IIV3 (Age >=3 years) 05/11/2012,07/08/2011,05/29/2008Influenza, EVW59608/24/2022,06/18/2022,05/05/2021, 05/11/2019,08/27/2017,06/09/2015MMR11/03/1996Td (Age >=7 Years)10/15/2004, 11/03/1996Tdap1,03/16/2012Tuberculin (PPD)11/13/2015,10/16/2015Typhoid (injectable)03/16/2012 Family History Medical HistoryRelationNameCommentsCancerMaternal AuntlymphomaCancerMaternal GrandfatherlungCancerMaternal Grandmothersarcoma lungDiabetesMaternal Uncle ArthritisMotherWanda JohnsongoutAsthmaMotherWanda JohnsonDiabetesMotherWanda JohnsonHyperlipidemiaMotherWanda JohnsonThyroid DiseaseMotherWanda JohnsonGood HealthSon 1Good HealthSon 2Good HealthSon 3RelationNameStatusCommentsBrother AliveDaughterAliveFatherAliveMaternal AuntMaternal GrandfatherDeceasedMaternal GrandmotherDeceasedMaternal UncleMotherWanda JohnsonAliveSon 1AliveSon 2AliveSon 3Alive Social History Tobacco UseTypesPacks/DayYears UsedDateSmoking Tobacco: Every DayCigarettes0.626 Started: 1999Smokeless Tobacco: Never Tobacco Cessation:Ready to Q uit: Not Asked; Counseling Given: Not Answered Comments:03/05/2025 - pt smokes a pack a day Alcohol UseStandard Drinks/WeekCommentsNo0 (1 standard drink = 0.6 oz pure alcohol)PHQ-2AnswerDate RecordedPHQ-2 TOTAL XNTVP06404/25/2025Social Connections AnswerDate RecordedDo you often feel lonely or isolated from those around you?0 05/26/2025Financial Resource StrainAnswerDate RecordedDifficulty of Paying Living Jxkftsjk543/12/2025Difficulty of Paying Living ExpensesNot on file 03/20/2025Food InsecurityAnswerDate RecordedDo you worry your food will run out before you are able to buy more?Transportation NeedsAnswerDate RecordedDoes lack of transportation keep you from medical appointments?1 05/26/2025Does lack of transportation keep you from work, meetings or getting things that you need?Housing StabilityAnswerDate RecordedWhat is your housing situation today?Interpersonal SafetyAnswerDate RecordedAre you being hit, kicked, pushed or yelled at (see row info)?No06/17/2025 Interpersonal Safety Abuse 12 - 18Not on file06/17/2025Interpersonal Safety Ambulatory VulnerabilityNot on file06/17/2025UtilitiesAnswerDate RecordedDo you have trouble paying for utilities (for example, heat, electricity, water, phone)?CommentsNoSex and Gender InformationValueDate Recorded Sex Assigned at WnwewDedmzd83/31/2024 7:26 PM CSTLegal OpwHprpfd21/14/2013 5:23 AM CSTGender EvrgkcucJreqyj93/31/2024 7:26 PM CSTSexual OrientationStraight 08/08/2024 7:26 PM CSTOccupationIndustryJob Start DateJob End Datehousekeeping D#1Not on fileNot on fileNot on file Obstetrics History GravidaParaTermPretermABIABSABEctopicMultipleLivingLive [id number] OutcomeGATotal LaborLabor/2nd/9emUvaodbNerPtyzKoigNPJGgcT2H8GverMsca40/25/2001 Eluv60q5j17f 00m/2.66 kg (5 lb 14 oz)FVagIV MedsNLivingLillyanna TorresVogel Delivery Location:[facility] Comments:hemorrhage, no blood glidkrqibsy8274DTA 06/20/20082266Xezw98v7g74y 00m/2.72 kg (6 lb)OYhuIfpzdrkhrbhTLxlzuj87Orpgxaqb MendozaDrevlowDelivery Location:[facility] Comments:placental abruption during 2nd ceodr6317Xnwm07s3f6.01 kg (6 lb 10 oz)MVagYLivingDelivery Location:[facility] Comments:ETZC99807/24/20142831Oram26w8m0.64 kg (8 lb 0.4 oz)MVagLivingRauenhorst Delivery Location:[facility] Comments:GDM Last Filed Vital Signs Vital SignReadingTime TakenCommentsBlood Ncibrebr660/7506/27/2025 11:17 AM [employer]SEL DECKHAND Wljsm170006/27/2025 11:17 AM FOGUbotdppjccv67.6 ??C (97.9 ??F)06/17/2025 4:14 PM CSTRespiratory Rpob187708/17/2024 4:14 PM CSTOxygen Paobqkzvqh75%06/27/2025 11:17 AM CSTInhaled Oxygen Concentration--Ucqabg18.4 kg (175 lb)06/17/2025 4:11 PM [employer] VESSEL DECKHAND Xnzhhr028.2 cm (5' 7)06/17/2025 4:11 PM CSTBody Mass Index27.41108/17/2024 4:11 PM [employer]SEL DECKH[employer] Plan of Treatment DateTypeDepartmentCare Team (Latest Contact Info)Sjvepycfpfi15/06/2026 2:00 PM CSTOffice Visit [facility] [address] [address] [place] [address] Joanna Avery MD [address] [address] [place] [address] Health MaintenanceDue DateLast DoneCommentsPneumococcal series for age 6-49 (1 of 2 - PCV)2003HPV series for age 9-45 (2 - 3-dose series)07/21/2011 06/23/2011Pap test for age 21-650//, 12/02/2020, 03/16/2012, Additional history existsTetanus , 03/16/2012, 10/15/2004, Additional history existsCOVID-19 vaccine series (2024- season), 05/21/2021, 08/27/2020, Additional history exists BMI (ht and wt on same day) for age 18+, 05/31/2024, 08/18/2022, Additional history existsDepression screening for age 12+04/25/2026 04/25/2025, 04/12/2025, 04/12/2025, Additional history existsHepatitis B series for 19+Scoqegaxq26/01/1998, 07/09/1997, 06/09/1997HIV for age 15-65Completed 02/03/2008Influenza MwsfzcxNhzihnbts92/10/2025, 05/25/2024, 06/24/2023, Additional history existsHepatitis C screening for age 18-86Zqouqkbty98/19/2025 Medical Devices ImplantedTypeAreaManufacturerDevice IdentifierShelf Expiration DateModel / Serial / LotClip Filshie #[id number] - [id number] Implanted:Qty: 2 on 09/18/2014 by [facility]: Fallopian TubeD-BABS MEDICAL CORP06/08/2016 [id number] / / [id number]:tubal ligation system Procedures Procedure NamePriorityDate/TimeAssociated DiagnosisCommentsUS PELVIS COMPLETE TA AND MNMefjpwt28/08/2025 5:35 PM [employer]ING VESSEL DECKHAND Ovarian mass ANTI HCVAdd On06/27/2025 12:16 PM [employer] V[employer]SEL DECKH[employer] Need for hepatitis C screening test CBC WITH AUTO RWTXQWYXSELXEmnemvp02/19/2025 12:16 PM [employer]KH[employer] Hospital discharge follow-up BASIC METABOLIC CCNBAQbkmwjg21/19/2025 12:16 PM [employer] Hospital discharge follow-up UTI due to extended-spectrum beta lactamase (ESBL) producing Escherichia coli CBC WITH AUTO YUNLCTBKTMVXVrgfnpn96/19/2025 12:16 PM [employer]SEL DECKH[employer] Hospital discharge follow-up LIPID XYHOXVolgtxe22/19/2025 12:16 PM [employer] V[employer]SEL DECKHAND Screening cholesterol level HEMOGLOBIN H2EYoifhai27/19/2025 12:16 PM FISHING V[employer]SEL DECKHAND Diabetes mellitus screening CELIAC CASCADE JHCMLThbynhw25/19/2025 12:16 PM [employer] DECKHAND Abdominal pain, epigastric URINE JOCUQXNFxcvdya05/19/2025 11:20 AM FISHING VESSEL DECKHAND Urinary pain URINALYSIS REFLEX NOTE (QUEST REFLEX ONLY)Krtrzpo9306/27/2025 11:20 AM FISHING VESSEL DECKHAND Urinary pain UA W/ SEDIMENT EXAM REFLEXED PER BMQLXTXUApoaikl64/19/2025 11:20 AM FISHING VESSEL DECKHAND Urinary pain SCAN-PATHOLOGY KBGQAZ2906/21/2025 12:00 AM FISHING VESSEL DECKHAND SCAN-CT VZLDHFGLQRXKEQ46/11/2025 12:00 AM CSTURINE OZCJFJCBNWQ57/09/2025 4:51 PM [employer]SEL DECKHAND URINALYSIS LKIIMZOTMAGJQZH26/09/2025 4:51 PM FISHING VESSEL DECKHAND UA W/ SEDIMENT EXAM REFLEXED PER UTVTLPAZPDJR46/09/2025 4:51 PM FISHING VESSEL DECKHAND CBC WITH AUTO SGWATHJNFBNIMEBD31/09/2025 4:41 PM [employer]SEL DECKHAND BASIC METABOLIC DKEGWZUXP59/09/2025 4:41 PM FISHING VESSEL DECKHAND CBC WITH AUTO HKTYUQITAYBTEQML78/09/2025 4:41 PM FISHING VESSEL DECKHAND CBC WITH AUTO QKNLUAWVXOYMUACV64/27/2025 2:38 PM CDT Urinary symptom or sign CBC WITH AUTO SCXMZLDSBVHBLRUT89/27/2025 2:38 PM CDT Urinary symptom or sign BASIC METABOLIC OHAOIHVZI73/27/2025 2:38 PM CDT Urinary symptom or sign US RENAL AND BLADDER RKUVOBOFELKN82/27/2025 2:23 PM CDT Urinary symptom or sign URINALYSIS VKBUWQOKOFBKyecjwk69/27/2025 11:50 AM CDT Urinary symptom or sign History of ESBL E. coli infection Frequent UTI URINE SSPDNAIFurhcvi74/27/2025 11:50 AM CDT Urinary symptom or sign History of ESBL E. coli infection Frequent UTI UA W/ SEDIMENT EXAM REFLEXED PER ZKGBUIBXFbmicbs79/27/2025 11:50 AM CDT Urinary symptom or sign History of ESBL E. coli infection Frequent UTI MR PELVIS YEAWlpgumw91/22/2025 9:31 AM CDT Frequent UTI History of ESBL E. coli infection C-REACTIVE PROTEINEarly AM05/28/2025 5:44 AM CDT SODIUMEarly AM05/28/2025 5:44 AM CDT WHITE BLOOD COUNTEarly AM05/28/2025 5:44 AM CDT MAGNESIUMEarly AM05/28/2025 5:44 AM CDT CREATININEEarly AM05/28/2025 5:44 AM CDT HEMOGLOBINEarly AM05/28/2025 5:44 AM CDT POTASSIUMEarly AM05/28/2025 5:44 AM CDT POTASSIUMEarly AM05/27/2025 7:50 AM CDT ZVNIQSJGIJhqxs66/19/2025 7:50 AM CDT C-REACTIVE PROTEINEarly AM05/27/2025 7:50 AM CDT WHITE BLOOD COUNTEarly AM05/27/2025 7:50 AM CDT CREATININEEarly AM05/27/2025 7:50 AM CDT SODIUMEarly AM05/27/2025 7:50 AM CDT DRRTAHUXTSmaya77/19/2025 2:37 AM CDT US RENAL AND BLADDER ZGTPRKNWNNGZ61/18/2025 7:44 PM CDT ZSNHBGOXXCWBQ28/18/2025 5:51 PM CDT BASIC METABOLIC PEBGOZNZJ61/18/2025 5:51 PM CDT CBC W PLT NO XRGKDGEW36/18/2025 5:51 PM CDT URINALYSIS KCRRJVNCUAWIDVP46/15/2025 4:06 PM CDT Urinary symptom or sign URINE CHIENKELgpliod32/15/2025 4:06 PM CDT Urinary symptom or sign UA W/ SEDIMENT EXAM REFLEXED PER THFSOAHVRUTP97/15/2025 4:06 PM CDT Urinary symptom or sign URINE BPUJYDOSbyfyte07/02/2025 1:03 PM CDT Frequent UTI History of ESBL E. coli infection DRYWALL MECHANIC THIN PREP PAP SCREEN NULZYTQpjefqo78/26/2021 11:02 AM CDT Pap smear for cervical cancer screening ANTI HIV 1/3Phmxkie90/27/2008 4:35 PM CDT Supervision Of Other Normal (Hc) from Last 3 Months or Most Recently Relevant to Health Maintenance Results * US PELVIS COMPLETE TA AND TV (07/16/2025 5:35 PM FISHING VESSEL DECKHAND)Anatomical Region LateralityModalityPelvisUltrasoundSpecimen (Source)Anatomical Location / LateralityCollection Method / VolumeCollection TimeReceived Time07/17/2025 6:06 AM [employer]SEL [employer]KH[facility] Impressions 07/17/2025 6:06 AM [employer] VESSEL DECKHAND 1. Complex, likely hemorrhagic 2.7 cm left ovarian cyst. 2. Mild uterine enlargement. Dictated by Robert Uribe MD @ 07/17/2025 6:06:22 AM (Electronically Signed) Narrative 07/17/2025 6:06 AM [employer]SEL [employer] For Patients: As a result of the Century Cures Act, medical imaging exams and procedure reports are released immediately into your electronic medical record. You may view this report before your referring provider. If you have questions, please contact your health care provider. INDICATION: Ovarian mass TECHNIQUE: Transabdominal and transvaginal scanning was performed. Transvaginal scanning was performed to optimally evaluate the endometrium and adnexa. Ovarian blood flow was evaluated with color-flow doppler. COMPARISON: Pelvis MRI of 05/30/2025 FINDINGS: The uterus is mildly enlarged but grossly normal in shape. The uterus measures 7.4 x 5.2 x 5.6 cm. No myometrial mass is evident. The endometrial stripe is normal in thickness at 15 mm. A complex, likely hemorrhagic 2.7 x 2.6 x 2.3 cm left ovarian cyst is demonstrated. Several small ovarian follicles are noted. The right ovary measures 3.4 x 2.1 x 2.0 cm and left 3.9 x 3.2 x 2.9 cm cm. Ovarian blood flow is demonstrated with color-flow doppler. No adnexal mass is evident. A small amount of physiologic free fluid is noted. Procedure Note Robert Uribe MD - 07/17/2025 For Patients: As a result of the Cures Act, medical imagingexams and procedure reports are released immediately into your electronicmedical record. You may view this report before your referring provider.If you have questions, please contact your health care provider. INDICATION: Ovarian mass TECHNIQUE: Transabdominal and transvaginal scanning was performed. Transvaginalscanning was performed to optimally evaluate the endometrium and adnexa.Ovarian blood flow was evaluated with color-flow doppler. COMPARISON: Pelvis MRI of 05/30/2025 FINDINGS: The uterus is mildly enlarged but grossly normal in shape. The uterusmeasures 7.4 x 5.2 x 5.6 cm. No myometrial mass is evident. Theendometrial stripe is normal in thickness at 15 mm. A complex, likely hemorrhagic 2.7 x 2.6 x 2.3 cm left ovarian cyst is demonstrated. Several small ovarian follicles are noted. The right ovarymeasures 3.4 x 2.1 x 2.0 cm and left 3.9 x 3.2 x 2.9 cm cm. Ovarian bloodflow is demonstrated with color-flow doppler. No adnexal mass is evident. A small amount of physiologic free fluid isnoted. IMPRESSION: 1. Complex, likely hemorrhagic 2.7 cm left ovarian cyst. 2. Mild uterine enlargement. Dictated by Robert Uribe MD @ 07/17/2025 6:06:22 AM (Electronically Signed) Authorizing ProviderResult TypeResult StatusMichael Criss Goyal MDUS Final Result * CELIAC CASCADE PANEL (06/27/2025 12:16 PM FISH[employer]SEL DECKHAND)ComponentValueRef RangeTest MethodAnalysis TimePerformed AtPathologist SignatureIMMUNOGLOBULIN F08659 - 310 mg/dL06/29/2025 7:44 AM CSTQUEST DIAGNOSTICSCELIAC DISEASE COMPREHENSIVE PANEL INTERPRETATIONSEE NOTE06/29/2025 7:44 AM CSTQUEST DIAGNOSTICSComment: No serological evidence of celiac disease. tTG IgA may normalize in individuals with celiac disease who maintain a gluten-free diet. Consider HLA DQ2 and DQ8 testing to rule out celiac disease. Celiac disease is extremely rare in the absence of DQ2 or DQ8. TISSUE TRANSGLUTAMINASE AB, IGA<1.0U/mL06/29/2025 7:44 AM [facility] Comment: Value ?Interpretation ----- ? <15.0 Antibody not detected > or = 15.0 Antibody detected Specimen (Source)Anatomical Location / LateralityCollection Method / Volume Collection TimeReceived TimeBloodBLOOD SPECIMEN / UnknownQuest Collect / Unknown 06/27/2025 12:16 PM CST06/27/2025 12:16 PM [employer]KH[facility] Narrative Authorizing ProviderResult TypeResult StatusMichael Criss Goyal MDSEND OUTSFinal ResultPerforming OrganizationAddressCity/State/ZIP CodePhone Number [employer] [id number] [place] [address], * (ABNORMAL) CBC WITH AUTO DIFFERENTIAL (06/27/2025 12:16 PM FISHING VES[employer]) Only the most recent of3 resultswithin the time period is included. ComponentValueRef RangeTest MethodAnalysis TimePerformed AtPathologist Signature WHITE BLOOD CELL COUNT14.5(H)3.8 - 10.8 Thousand/uL06/28/2025 4:23 AM [employer] DIAGNOSTICSRED BLOOD CELL COUNT4.703.80 - 5.10 Million/uL06/28/2025 4:23 AM [employer] BQMVEQSYPQZUGKLPKLPOK28.511.7 - 15.5 g/dL06/28/2025 4:23 AM [employer] CFSRECJCINCWQXGZBSMCD27.2(H)35.0 - 45.0 %06/28/2025 4:23 AM [employer] MCV98.380.0 - 100.0 fL06/28/2025 4:23 AM [employer] INHRUUNHVCXQQX10.027.0 - 33.0 pg06/28/2025 4:23 AM [employer] KINLRMDHAIMJVGP39.532.0 - 36.0 g/dL06/28/2025 4:23 AM AcceloWebQUEST DIAGNOSTICSComment: For adults, a slight decrease in the calculated MCHC value (in the range of 30 to 32 g/dL) is most likely not clinically significant; however, it should be interpreted with caution in correlation with other red cell parameters and the patient's clinical condition. RDW12.811.0 - 15.0 %06/28/2025 4:23 AM CSTQUEST DIAGNOSTICSPLATELET UYGJO263(H) 140 - 400 Thousand/uL06/28/2025 4:23 AM CSTQUEST OWTACTAFUUOIYN52.47.5 - 12.5 fL 06/28/2025 4:23 AM CST[facility] LVEQUQHOGYQVZSOWEISGYG54.5%06/28/2025 4:23 AM [facility] GPFCVHEJDOPWZXBPAFLLMZ02.6%06/28/2025 4:23 AM [facility] MONOCYTES7.0%06/28/2025 4:23 AM CSTQUEST DIAGNOSTICSEOSINOPHILS1.5%06/28/2025 4:23 AM CSTQUEST DIAGNOSTICSBASOPHILS0.4%06/28/2025 4:23 AM [facility] ABSOLUTE SDNULWBMWXG8750(H)1500 - 7800 cells/uL06/28/2025 4:23 AM CSTQUEST DIAGNOSTICSABSOLUTE EUOVCPXBGON3982783 - 3900 cells/uL06/28/2025 4:23 AM [facility]ING [employer] [facility]NOSTICSABSOLUTE QAMBDWXGS9420(H)200 - 950 cells/uL06/28/2025 4:23 AM CSTQUEST DIAGNOSTICSABSOLUTE VIVZGVEVSYC48923 - 500 cells/uL06/28/2025 4:23 AM CSTQUEST DIAGNOSTICSABSOLUTE OVZDYZFMJ053 - 200 cells/uL06/28/2025 4:23 AM [facility]ING [facility] [facility]AGNOSTICSSpecimen (Source)Anatomical Location / LateralityCollection Method / VolumeCollection TimeReceived TimeBloodBLOOD SPECIMEN / UnknownQuest Collect / Nwputnk5806/27/2025 12:16 PM CST06/27/2025 12:16 PM [employer] Narrative Authorizing ProviderResult TypeResult StatusMichael Criss Goyal MD HEMATOLOGYFinal ResultPerforming OrganizationAddressCity/State/ZIP CodePhone Number [facility] [address] [place] [address], * HEMOGLOBIN A1C (06/27/2025 12:16 PM FISHING [employer])ComponentValueRef RangeTest Method Analysis TimePerformed AtPathologist SignatureHEMOGLOBIN A1C5.1<5.7 % 06/28/2025 5:35 AM CSTQUEST DIAGNOSTICSComment: For the purpose of screening for the presence of diabetes: <5.7% Consistent with the absence of diabetes 5.7-6.4% ?Consistent with increased risk for diabetes ?(prediabetes) > or =6.5% Consistent with diabetes This assay result is consistent with a decreased risk of diabetes. Currently, no consensus exists regarding use of hemoglobin A1c for diagnosis of diabetes in children. According to [place] Diabetes Association (ADA) guidelines, hemoglobin A1c <7.0% represents optimal control in non- diabetic patients. Different metrics may apply to specific patient populations. Standards of Medical Care in Diabetes(ADA). ?? Specimen (Source)Anatomical Location / LateralityCollection Method / Volume Collection TimeReceived TimeBloodBLOOD SPECIMEN / UnknownQuest Collect / Unknown 06/27/2025 12:16 PM CST06/27/2025 12:16 PM [employer] Narrative Authorizing ProviderResult TypeResult StatusMichael Criss Goyal MD CHEMISTRYFinal ResultPerforming OrganizationAddressCity/State/ZIP CodePhone Number [employer] [address] [address], * ANTI HCV (06/27/2025 12:16 PM FISHING [employer])ComponentValueRef RangeTest MethodAnalysis TimePerformed AtPathologist SignatureHEPATITIS C ANTIBODYNON-REACTIVE NON-MXBAQWWM18/21/2025 3:20 AM CSTQUEST DIAGNOSTICSComment: HCV antibody was non-reactive. There is no laboratory evidence of HCV infection. In most cases, no further action is required. However, if recent HCV exposure is suspected, a test for HCV RNA (test code 69506) is suggested. For additional information please refer to http://education.[employer]/faq/CPM24c1 (This link is being provided for informational/ educational purposes only.) Specimen (Source)Anatomical Location / LateralityCollection Method / Volume Collection TimeReceived TimeBloodBLOOD SPECIMEN / UnknownQuest Collect / Unknown 06/27/2025 12:16 PM CST06/27/2025 12:16 PM [employer] Narrative Authorizing ProviderResult TypeResult StatusMicbryonl Criss Goyal MDSEND OUTSFinal ResultPerforming OrganizationAddressCity/State/ZIP CodePhone Number [facility] [address] [place] [address], * (ABNORMAL) LIPID PANEL (06/27/2025 12:16 PM FISHING [employer])ComponentValueRef RangeTest MethodAnalysis TimePerformed AtPathologist SignatureCHOLESTEROL, YYOBM397<200 mg/dL06/28/2025 5:30 AM CSTQUEST GPVLOPMOYGAPPPQMFRAVFFUY135<150 mg/dL 06/28/2025 5:30 AM CSTQUEST DIAGNOSTICSHDL RIMSXNFAIHO64(L)> OR = 50 mg/dL 06/28/2025 5:30 AM CSTQUEST DIAGNOSTICSNON HDL FQWFRQCZICU500<130 mg/dL (calc) 06/28/2025 5:30 AM CSTQUEST DIAGNOSTICSComment: For patients with diabetes plus 1 major ASCVD risk factor, treating to a non-HDL-C goal of <100 mg/dL (LDL-C of <70 mg/dL) is considered a therapeutic option. CHOL/HDLC RATIO3.5<5.0 (calc)06/28/2025 5:30 AM [facility] LDL-NASGSYODKND39dz/dL (calc)06/28/2025 5:30 AM CSTQUEST DIAGNOSTICSComment: Reference range: <100 Desirable range <100 mg/dL for primary prevention; <70 mg/dL for patients with CHD or diabetic patients with > or = 2 CHD risk factors. LDL-C is now calculated using the Jae-Patti calculation, which is a validated novel method providing better accuracy than the Friedewald equation in the estimation of LDL-C. Jae LOMAS et al. ALEXA. 2013;310(19): 3411-7274 (http://education.[employer]/faq/MKI224) Specimen (Source)Anatomical Location / LateralityCollection Method / Volume Collection TimeReceived TimeBloodBLOOD SPECIMEN / UnknownQuest Collect / Unknown 06/27/2025 12:16 PM CST06/27/2025 12:16 PM FISHING [employer] Narrative Authorizing ProviderResult TypeResult StatusJaydon Goyal MD CHEMISTRYFinal ResultPerforming OrganizationAddressCity/State/ZIP CodePhone Number [facility] [address] [place] [address], * (ABNORMAL) BASIC METABOLIC PANEL (06/27/2025 12:16 PM FISHING [employer]) Only the most recent of4 resultswithin the time period is included. ComponentValueRef RangeTest MethodAnalysis TimePerformed AtPathologist Signature UYAJWW336244 - 146 mmol/L108/28/2024 5:30 AM CSTQUEST DIAGNOSTICSPOTASSIUM3.93.5 - 5.3 mmol/L108/28/2024 5:30 AM CSTQUEST DIAGNOSTICSCARBON OOSSTCB2781 - 32 mmol/L108/28/2024 5:30 AM CSTQUEST FFTFQXBCBUTPHVTVQE8355 - 99 mg/dL06/28/2025 5:30 AM CSTQUEST DIAGNOSTICSComment: ? Fasting reference interval CALCIUM9.58.6 - 10.2 mg/dL06/28/2025 5:30 AM CSTQUEST DIAGNOSTICSCREATININE0.60 0.50 - 0.99 mg/dL06/28/2025 5:30 AM CSTQUEST DIAGNOSTICSBUN/CREATININE GTHUE758 - 22 (calc)06/28/2025 5:30 AM CSTQUEST JYLKTPBGMOFTGFU665> OR = 60 mL/min/1.73m2 06/28/2025 5:30 AM CSTQUEST DIAGNOSTICSUREA NITROGEN (BUN)6(L)7 - 25 mg/dL 06/28/2025 5:30 AM CSTQUEST DIAGNOSTICSELECTROLYTE CPPGRBO34 - 17 mmol/L (calc) 06/28/2025 5:30 AM CSTQUEST OABQAQRRXRCBOJDMDRM05139 - 110 mmol/L108/28/2024 5:30 AM CSTQUEST DIAGNOSTICSSpecimen (Source)Anatomical Location / Laterality Collection Method / VolumeCollection TimeReceived TimeBloodBLOOD SPECIMEN / UnknownQuest Collect / Jzoxgpv3006/27/2025 12:16 PM CST06/27/2025 12:16 PM FISHING [employer] Narrative Authorizing ProviderResult TypeResult StatusMichael Criss Goyal MD CHEMISTRYFinal ResultPerforming OrganizationAddressCity/State/ZIP CodePhone Number [facility] [address] [place] [address], * URINALYSIS REFLEX NOTE (QUEST REFLEX ONLY) (06/27/2025 11:20 AM FISHING V[employer])Component ValueRef RangeTest MethodAnalysis TimePerformed AtPathologist SignatureNOTE UA SEE NOTE06/28/2025 4:09 AM CSTQUEST DIAGNOSTICSComment: This urine was analyzed for the presence of WBC, RBC, bacteria, casts, and other formed elements. Only those elements seen were reported. Specimen (Source)Anatomical Location / LateralityCollection Method / Volume Collection TimeReceived TimeUrineURINE SPECIMEN / UnknownNon-Blood / Unknown 06/27/2025 11:20 AM CST06/27/2025 11:31 AM FISHING [employer] Narrative Authorizing ProviderResult TypeResult StatusMichael Criss Goyal MDSEND OUTSFinal ResultPerforming OrganizationAddressCity/State/ZIP CodePhone Number [facility] [address] [place] [address], * (ABNORMAL) URINE CULTURE (06/27/2025 11:20 AM FISHING [employer]) Only the most recent of5 resultswithin the time period is included. ComponentValueRef RangeTest MethodAnalysis TimePerformed AtPathologist Signature CULTURE, URINE, ROUTINESEE NOTE(A)07/01/2025 12:39 AM [facility]ST[facility] Comment: ??CULTURE, URINE, ROUTINE ?Micro Number: ?[id number] ??Test Status: ? Final ??Specimen Source: ?? Urine ??Specimen Quality: ??Adequate ??Result: ?Greater than 100,000 CFU/mL of Klebsiella pneumoniae ?K.pneumoniae ?INT ?? COLUMBA ?? AMOX/CLAVULANATE ? S ? 8 ?? AMP/SULBACTAM ?S ? 8 ?? CEFAZOLIN ?NR ?2 2 CEFEPIME S <=0.12 CEFTAZIDIME S <=0.5 CEFTRIAXONE S <=0.25 CIPROFLOXACIN S <=0.06 GENTAMICIN S <=1 IMIPENEM S <=0.25 LEVOFLOXACIN S <=0.12 MEROPENEM S <=0.25 ?? NITROFURANTOIN ? I ? 64 PIP/TAZOBACTAM S <=4 TRIMETHOPRIM/SULFA S <=20 S = Susceptible ??I = Intermediate ??R = Resistant ??NS = Not susceptible SDD = Susceptible Dose Dependent ??* = Not Tested ??NR = Not Reported NN = See Therapy Comments THERAPY COMMENTS ?Note 1: ?For infections other than uncomplicated UTI ?caused by E. coli, K. pneumoniae or P. mirabilis: Cefazolin is resistant if COLUMBA > or = 8 mcg/mL. ?(Distinguishing susceptible versus intermediate for isolates with COLUMBA < or = 4 mcg/mL requires ?additional testing.) ?Note 2: ?For uncomplicated UTI caused by E. coli, ?K. pneumoniae or P. mirabilis: Cefazolin is susceptible if COLUMBA <32 mcg/mL and predicts ?susceptible to the oral agents cefaclor, cefdinir, ?cefpodoxime, cefprozil, cefuroxime, cephalexin ?and loracarbef. Specimen (Source)Anatomical Location / LateralityCollection Method / Volume Collection TimeReceived TimeUrineURINE SPECIMEN / UnknownNon-Blood / Unknown 06/27/2025 11:20 AM CST06/27/2025 11:31 AM [employer]ING [employer] Narrative Authorizing ProviderResult TypeResult StatusMichael Criss Goyal MD MICROBIOLOGYFinal ResultPerforming OrganizationAddressCity/State/ZIP CodePhone Number [address] [phone], * (ABNORMAL) UA W/ SEDIMENT EXAM REFLEXED PER CRITERIA (06/27/2025 11:20 AM FISHING [employer]) Only the most recent of4 resultswithin the time period is included. ComponentValueRef RangeTest MethodAnalysis TimePerformed AtPathologist Signature ZTCJMBOTICCNMXUKR90/20/2025 4:09 AM CSTQUEST DIAGNOSTICSSPECIFIC GRAVITY1.011 1.001 - 1.2876506/28/2025 4:09 AM CSTQUEST DIAGNOSTICSPH6.55.0 - 8.011 4:09 AM CSTQUEST TBNHWYIQADDZGLZFDRHBNXNCKCBGMHEBQP92/20/2025 4:09 AM CSTQUEST SYCXWFHGBFTVCKZOMSKADTQGAKIKHJHKFK58/20/2025 4:09 AM CSTQUEST DIAGNOSTICSKETONES ZKURCLQXWOISQJSI59/20/2025 4:09 AM CSTQUEST DIAGNOSTICSBILIRUBINNEGATIVENEGATIVE 06/28/2025 4:09 AM CSTQUEST DIAGNOSTICSOCCULT BLOODTRACE(A)GAQAKYMD18/20/2025 4:09 AM CSTQUEST DIAGNOSTICSNITRITEPOSITIVE(A)UNKFANFU59/20/2025 4:09 AM FISHING [employer] [facility]AGNOSTICSLEUKOCYTE ESTERASE2+(A)XERKAWIT80/20/2025 4:09 AM CSTQUEST TYSESUFFDKQEYFQCCAQNDKYLUWMYVRT33/20/2025 4:09 AM CSTQUEST DIAGNOSTICSWBC UA 20-40(A)< OR = 5 /HPF06/28/2025 4:09 AM CSTQUEST DIAGNOSTICSRBC UA0-2< OR = 2 /HPF06/28/2025 4:09 AM CSTQUEST DIAGNOSTICSSQUAMOUS EPITHELIAL CELLS UA6-10(A)< OR = 5 /HPF06/28/2025 4:09 AM CSTQUEST DIAGNOSTICSBACTERIA UAMANY(A)NONE SEEN /HPF06/28/2025 4:09 AM CSTQUEST DIAGNOSTICSHYALINE CASTNONE SEENNONE SEEN /LPF 06/28/2025 4:09 AM CSTQUEST DIAGNOSTICSSpecimen (Source)Anatomical Location / LateralityCollection Method / VolumeCollection TimeReceived TimeUrineURINE SPECIMEN / UnknownNon-Blood / Ciqavrw6306/27/2025 11:20 AM CST06/27/2025 11:31 AM [employer]ING [employer] Narrative Authorizing ProviderResult TypeResult StatusMichael Criss Goyal MD URINEFinal ResultPerforming OrganizationAddressCity/State/ZIP CodePhone Number [facility] [place] [address] [place] [address], * SCAN-PATHOLOGY REPORT (06/21/2025 12:00 AM FISHING [employer]) Narrative Authorizing ProviderResult TypeResult StatusScannerOTHERFinal Result * SCAN-CT INTERPRETATION (06/19/2025 12:00 AM FISHING [employer])Anatomical RegionLaterality ModalityOther Narrative Authorizing ProviderResult TypeResult StatusScannerOTHERFinal Result * (ABNORMAL) URINALYSIS MICROSCOPIC (06/17/2025 4:51 PM FISHING [employer]) Only the most recent of3 resultswithin the time period is included. ComponentValueRef RangeTest MethodAnalysis TimePerformed AtPathologist Signature RBC3-5(A)0-2, None Seen /HPF06/17/2025 5:22 PM [facility] MNTGCWCDRJRBM90-89(A)0-2, 3-5, None Seen /HPF06/17/2025 5:22 PM [facility] LABORATORYBACTERIAMany(A)None Seen, Rare, Few Bacteria/HPF 06/17/2025 5:22 PM [facility] LABORATORYEPITHELIAL CELLS Moderate(A)None Seen, Few Epi/HPF06/17/2025 5:22 PM [facility] LABORATORYSpecimen (Source)Anatomical Location / LateralityCollection Method / VolumeCollection TimeReceived TimeUrineURINE SPECIMEN / UnknownNon-Blood / Cgepwrl3306/17/2025 4:51 PM CST06/17/2025 4:54 PM [employer] Narrative Authorizing ProviderResrust TypeResult StatusObdulia Doran PAURINEFinal ResultPerforming OrganizationAddressCity/State/ZIP CodePhone Number [facility] [address] [place] [address] * US RENAL AND BLADDER COMPLETE (06/04/2025 2:23 PM CDT) Only the most recent of2 resultswithin the time period is included. Anatomical RegionLateralityModalityAbdomen, AORTA, KIDNEYSUltrasoundSpecimen (Source)Anatomical Location / LateralityCollection Method / VolumeCollection TimeReceived Time06/04/2025 2:31 PM CDT Impressions 06/04/2025 2:31 PM [...] sign. TECHNIQUE: Ultrasound renal and bladder complete. ??Canales-scale and color Doppler sonographic images were acquired of the kidneys and urinary bladder. COMPARISON: Ultrasound kidneys May 26, 2025 FINDINGS: Right kidney: 11.2 x 5.8 x 4.5 cm. ??Normal echotexture and cortex. ??No suspicious masses, stones,or hydronephrosis. Preserved vascularity. Left kidney: 11.4 x 5.7 x 4.5 cm. ??Normal echotexture and cortex. ??No suspicious masses, stones, or hydronephrosis. Preserved vascularity. Bladder: Normal in caliber and appearance. Prevoid bladder volume measures 63 mL. Postvoid residualvolume measures 23 mL. Color Doppler images demonstrate bilateral ureteral jets. Procedure Note Geoffrey Thompson MD - 06/04/2025 For Patients: As a result of the s Act, medical imagingexams and procedure reports are [...] in caliber and appearance. Prevoid bladder volume shonlzxe07 mL. Postvoid residual volume measures 23 mL. Color Doppler imagesdemonstrate bilateral ureteral jets. IMPRESSION: Normal ultrasound examination of kidneys. Dictated by Geoffrey Thompson MD @ 06/04/2025 2:31:52 PM (Electronically Signed) Authorizing ProviderResult TypeResult StatusChelsea Jessi Nelson PAUSFinal Result * MR PELVIS WWO (05/30/2025 9:31 AM CDT)Anatomical RegionLateralityModality PelvisMagnetic ResonanceSpecimen (Source)Anatomical Location / Laterality Collection Method / VolumeCollection TimeReceived Time05/31/2025 1:51 PM CDT Impressions 05/31/2025 1:51 PM [...] CT abdomen and pelvis 03/20/2025 FINDINGS: Uterus: ??The uterus is normal in size measuring 4.7 x 8.7 cm. The endometrium measures 7 mm in thickness. No uterine fibroids are present. No definite evidence of endometriosis or adenomyosis. Cervical stroma: Intact without evidence of mass Ovaries/adnexa: Unremarkable ovaries bilaterally. Multiple physiologic follicles are present. No evidence of ovarian/adnexal mass. Remaining pelvis: Limited evaluation of the abdominal viscera demonstrates normal appearance of thevisualized bowel and urinary bladder. Vasculature: ??The iliac arteries are patent. Lymph nodes: No [...] MD @ 05/31/2025 1:51:42 PM (Electronically Signed) Authorizing ProviderResult TypeResult StatusMichael Christopher Farnsworth MDMRFinal Result * (ABNORMAL) WHITE BLOOD COUNT (05/28/2025 5:44 AM CDT) Only the most recent of2 resultswithin the time period is included. ComponentValueRef RangeTest MethodAnalysis TimePerformed AtPathologist Signature WHITE BLOOD COUNT12.2(H)4.5 - 11.0 thou/cu mm05/28/2025 6:10 AM [facility] LABORATORYSpecimen (Source)Anatomical Location / Laterality Collection Method / VolumeCollection TimeReceived TimeBloodBLOOD SPECIMEN / UnknownVenipuncture / Fyiqhmt2105/28/2025 5:44 AM CDT1 6:06 AM CDT Narrative Authorizing ProviderResult TypeResult StatusMichelle Marie Torgersen CLEANING MACHINE OPERATOR HEMATOLOGYFinal ResultPerforming OrganizationAddressCity/State/ZIP CodePhone Number [facility] [address] [place] [address] * HEMOGLOBIN (05/28/2025 5:44 AM CDT)ComponentValueRef RangeTest MethodAnalysis TimePerformed AtPathologist GtzqxjqikGSLYTSCEIG85.812.0 - 16.0 g/dL05/28/2025 6:10 AM [facility] KYNFCABNNIQHS2702 - 100 fL05/28/2025 6:10 AM [facility] LABORATORYSpecimen (Source)Anatomical Location / LateralityCollection Method / VolumeCollection TimeReceived TimeBloodBLOOD SPECIMEN / UnknownVenipuncture / Ecpmwng5305/28/2025 5:44 AM CDT1 6:06 AM CDT Narrative Authorizing ProviderResult TypeResult StatusMichelle Marie Torgersen CLEANING MACHINE OPERATOR HEMATOLOGYFinal ResultPerforming OrganizationAddressCity/State/ZIP CodePhone Number [facility] [address] [place] [address] * SODIUM (05/28/2025 5:44 AM CDT) Only the most recent of2 resultswithin the time period is included. ComponentValueRef RangeTest MethodAnalysis TimePerformed AtPathologist Signature SJPZWY947428 - 145 mmol/L1 6:27 AM [facility] LABORATORYSpecimen (Source)Anatomical Location / LateralityCollection Method / VolumeCollection TimeReceived TimeBloodBLOOD SPECIMEN / UnknownVenipuncture / Ozifwjw5905/28/2025 5:44 AM CDT1 6:06 AM CDT Narrative Authorizing ProviderResult TypeResult StatusMichelle Marie Torgersen CLEANING MACHINE OPERATOR CHEMISTRYFinal ResultPerforming OrganizationAddressCity/State/ZIP CodePhone Number [facility] [address] [place] [phone] * POTASSIUM (05/28/2025 5:44 AM CDT) Only the most recent of3 resultswithin the time period is included. ComponentValueRef RangeTest MethodAnalysis TimePerformed AtPathologist Signature POTASSIUM4.53.5 - 5.1 mmol/L1 6:27 AM [facility] LABORATORYSpecimen (Source)Anatomical Location / LateralityCollection Method / VolumeCollection TimeReceived TimeBloodBLOOD SPECIMEN / UnknownVenipuncture / Waanezr8605/28/2025 5:44 AM CDT1 6:06 AM CDT Narrative Authorizing ProviderResult TypeResult StatusMari Salgado RNCHEMISTRYFinal ResultPerforming OrganizationAddressCity/State/ZIP CodePhone Number [facility] [address] [place] [address] * CREATININE (05/28/2025 5:44 AM CDT) Only the most recent of2 resultswithin the time period is included. ComponentValueRef RangeTest MethodAnalysis TimePerformed AtPathologist Signature eGFR>90>90 mL/min/1.98w52705/28/2025 6:27 AM [facility] LABORATORYComment:As of 10/21/2021, eGFR is calculated by the CKD-EPI creatinine equation without race adjustment. ??eGFR can be influenced by muscle mass, exercise, and diet. ??The reported eGFR is an estimation onlyand is only applicable if the renal function is stable.CREATININE0.600.50 - 0.90 mg/dL 05/28/2025 6:27 AM [facility] LABORATORYSpecimen (Source) Anatomical Location / LateralityCollection Method / VolumeCollection Time Received TimeBloodBLOOD SPECIMEN / UnknownVenipuncture / Dvxeogm5205/28/2025 5:44 AM CDT1 6:06 AM CDT Narrative Authorizing ProviderResult TypeResult StatusRebecca Lamb CLEANING MACHINE OPERATOR CHEMISTRYFinal ResultPerforming OrganizationAddressCity/State/ZIP CodePhone Number [facility] [address] [place] [address] * C-REACTIVE PROTEIN (05/28/2025 5:44 AM CDT) Only the most recent of2 resultswithin the time period is included. ComponentValueRef RangeTest MethodAnalysis TimePerformed AtPathologist Signature C-REACTIVE PROTEIN<0.3<0.5 mg/dL05/28/2025 6:29 AM [facility] LABORATORYSpecimen (Source)Anatomical Location / LateralityCollection Method / VolumeCollection TimeReceived TimeBloodBLOOD SPECIMEN / UnknownVenipuncture / Nqfajsj0705/28/2025 5:44 AM CDT1 6:06 AM CDT Narrative Authorizing ProviderResult TypeResult StatusMichelle Mariemarcelo Lamb CLEANING MACHINE OPERATOR CHEMISTRYFinal ResultPerforming OrganizationAddressCity/State/ZIP CodePhone Number [facility] [address] [place] [address] * MAGNESIUM (05/28/2025 5:44 AM CDT) Only the most recent of3 resultswithin the time period is included. ComponentValueRef RangeTest MethodAnalysis TimePerformed AtPathologist Signature MAGNESIUM1.91.6 - 2.6 mg/dL05/28/2025 6:29 AM [facility] LABORATORYSpecimen (Source)Anatomical Location / LateralityCollection Method / VolumeCollection TimeReceived TimeBloodBLOOD SPECIMEN / UnknownVenipuncture / Ywykrrj8805/28/2025 5:44 AM CDT1 6:06 AM CDT Narrative Authorizing ProviderResult TypeResult StatusMichelrobel Lamb CLEANING MACHINE OPERATOR CHEMISTRYFinal ResultPerforming OrganizationAddressCity/State/ZIP CodePhone Number [facility] [address] [place] [address] * (ABNORMAL) CBC W PLT NO DIFF (05/26/2025 5:51 PM CDT)ComponentValueRef Range Test MethodAnalysis TimePerformed AtPathologist SignatureWHITE BLOOD COUNT16.0 (H)4.5 - 11.0 thou/cu mm05/26/2025 5:57 PM [facility] LABORATORYRED BLOOD COUNT4.564.00 - 5.20 mil/cu mm05/26/2025 5:57 PM CDT [facility] NQRIREEYSDWRXDDIHVEP02.712.0 - 16.0 g/dL05/26/2025 5:57 PM [facility] CUBDAGXTKLJMBOCPUMHV91.233.0 - 51.0 % 05/26/2025 5:57 PM [facility] SXPKLTKJERRYP4683 - 100 fL 05/26/2025 5:57 PM [facility] NERYSYKCVIEGZ85.226.0 - 34.0 pg 05/26/2025 5:57 PM [facility] BZZAOHFXEHBFPF74.032.0 - 36.0 g/dL05/26/2025 5:57 PM [facility] HBOMSYAZXSAZR47.111.5 - 15.5 %05/26/2025 5:57 PM [facility] LABORATORYPLATELET COUNT 190641 - 440 thou/cu mm05/26/2025 5:57 PM [facility] LABORATORYMPV9.56.5 - 11.0 fL05/26/2025 5:57 PM [facility] LABORATORYSpecimen (Source)Anatomical Location / LateralityCollection Method / VolumeCollection TimeReceived TimeBloodBLOOD SPECIMEN / UnknownVenipuncture / Jaednup6405/26/2025 5:51 PM CDT1 5:54 PM CDT Narrative Authorizing ProviderResult TypeResult StatusMegan Maki Torres Plutt DO HEMATOLOGYFinal ResultPerforming OrganizationAddressCity/State/ZIP CodePhone Number [facility] [address] [place] [phone] * DRYWALL MECHANIC THIN PREP PAP SCREEN IMAGED (12/02/2020 11:02 AM CDT)ComponentValueRef RangeTest MethodAnalysis TimePerformed AtPathologist SignatureCase Report Gynecologic Cytology Report ? Case: [id number] ? Authorizing Provider: ??Emmy Brown NP ? Collected: ? 12/02/2020 1102 ? Ordering Location: ? [facility] ?Received: ?12/02/2020 1120 ? Clinic ? First Screen: ?Snow Torres ? Specimen: ?DRYWALL MECHANIC ThinPrep Vial Screening, Cervical ? 12/11/2020 2:41 PM [facility] INTERPRETATION/RESULTNEGATIVE FOR INTRAEPITHELIAL LESION OR MALIGNANCY (NIL) (none)12/11/2020 2:41 PM [facility] at 1440 CDTSPECIMEN ADEQUACYSatisfactory for evaluation Endocervical component rajxcqe8512/11/2020 2:41 PM [facility] LABORATORYHPV REQUESTHPV and PAP12/11/2020 2:41 PM [facility] LABORATORYDate of LMP3/12/11/2020 2:41 PM [facility]-CENTRAL LABORATORYLast Pap [id number] 2:41 PM CDT [facility] LAB[facility]AT[facility]-CENTRAL LABORATORYLast Pap VbwhgaBOH56/05/2021 2:41 PM [facility] LAB[facility]AT[facility]-CENTRAL LABORATORYAbnormal Pap or [place] Bx in last 5 oiplrTr1412/11/2020 2:41 PM [facility] LAB[facility]ORY Menstrual StatusRegular Gzvjgcc1412/11/2020 2:41 PM [facility]- CENTRAL LABORATORYColp Bx Done MpjeeSd5512/11/2020 2:41 PM [facility]Additional InformationNone given12/11/2020 2:41 PM [facility] LABORATORYComment: Cytology is screened at [facility] - [address], [place] [address] and [facility] - [address], [place] [address] and [facility] - [address] [place] [address] Interpreted at [facility] - [address] [place] [address] Automated DbhrfgLuslbodjcz40/05/2021 2:41 PM [facility] LABORATORYComment:Specimen processed successfully by automated supervisor engraving device, Morgan EverettPrep Imaging System, [employer]ANCILLARY TESTING GYNHPV Ordered, Please see separate dtakfj1212/11/2020 2:41 PM [facility] LABORATORYNoteThe pap test is a screening technique, not a diagnostic procedure. It is used primarily to screen for squamous cancers and precursor lesions. Published studies have shown that it is subject to both false negative and false positive results. The pap test should not be used as the sole means to diagnose or exclude pre-malignant and malignant lesions.12/11/2020 2:41 PM [facility] LABORATORYSpecimen (Source)Anatomical Location / LateralityCollection Method / VolumeCollection TimeReceived TimeOther (Cervical) Non-Blood / Dnwvqyu6012/02/2020 11:02 AM CDT12/02/2020 11:20 AM CDT Narrative Authorizing ProviderResult TypeResult StatusJulie Kevin NPPATHOLOGY/CYTOLOGY Final ResultPerforming OrganizationAddressCity/State/ZIP CodePhone Number [facility] [address] [place] [address], [place] * ANTI HIV 1/2 [08366.0] (02/03/2008 4:35 PM CDT)ComponentValueRef RangeTest MethodAnalysis TimePerformed AtPathologist SignatureANTI HIV 1/2Non-reactive [facility]ITALpecimen (Source)Anatomical Location / Laterality Collection Method / VolumeCollection TimeReceived TimeBlood specimen (specimen)BLOOD SPECIMEN / Jqlrjiz6402/03/2008 4:35 PM CDT02/03/2008 4:17 PM CDT Narrative Authorizing ProviderResult TypeResult StatusSigrid Isifina Shen MDSEND OUTSFinal ResultPerforming OrganizationAddressCity/State/ZIP CodePhone Number [facility] INTERNAL ZIP [phone] [address] from Last 3 Months or Most Recently Relevant to Health Maintenance Additional Health Concerns InfectionOnset DateLast IndicatedESBL Comment:Order contact precautions. Pt. does not meet [...] urine +MDRO 06/04/2015, ESBL+ E. coli, urine MRSA Clearance Comment:Infection Control Note: Hx of MRSA, surveillance criteria met, no need for further testing or isolation precautions. Do not delete or resolve the Infection Flag. Insurance * Guarantor: Sugey Louie TypeRelation to PatientDate of BirthPhone Billing AddressPersonal/[address] [place] [address] * Guarantor: Sugey Louie TypeRelation to PatientDate of BirthPhone Billing AddressPersonal/M[address]doh[address] [place] [address] * Guarantor: Sugey Louie TypeRelation to PatientDate of BirthPhone Billing AddressWorkers [address] [facility] [place] [address] * Guarantor: Sugey Louie TypeRelation to PatientDate of BirthPhone Billing AddressWorkers [address] [place] [address] * Guarantor: Sugey Louie TypeRelation to PatientDate of BirthPhone Billing AddressWorkers [address] [place] [address] * Guarantor: Sugey Louie TypeRelation to PatientDate of BirthPhone Billing AddressWorkers [address] [place] [address] * Guarantor: HARRISON FLEXIBLEAccount TypeRelation to PatientDate of BirthPhone Billing AddressOcc Health/CorpEmployer ATTN ACCTS PAYABLE [address] [place] [address] * Guarantor: IMELDA LOPEZ HASTINGSAccount TypeRelation to PatientDate of BirthPhoneBilling AddressOcc Health/CorpEmployer [address] [place] [address] * Guarantor: Sugey Louieunt TypeRelation to PatientDate of BirthPhone Billing AddressWorkers [address] [place] [address] * Guarantor: NEW PERSPECTIVE JENISE DUKE LIVINGAccount TypeRelation to PatientDate of BirthPhoneBilling AddressOcc Health/SvtuRlfkpzjw90/01[birth year][address] [place] [address] * Guarantor: BEACON LANDING/TEALWOOD FARIBAULTAccount TypeRelation to Patient Date of BirthPhoneBilling AddressOcc Health/CorpEmployer [address] [facility] [place] [address] Advance Directives * Full Code (Latest Code Status on File) Date ActivatedDate DdbpwrfjvrhCpmefhpp98/18/2025 8:18 PM10 1:29 PM QuestionAnswerCommentsCode Status Discussion:* Reviewed Preferences * Full Code Date ActivatedDate InactivatedComments03/20/2025 4:04 PM03/23/2025 4:50 PMQuestion AnswerCommentsCode Status Discussion:* Reviewed Preferences * Full Code Date ActivatedDate InactivatedComments03/06/2025 9:41 PM03/07/2025 7:06 PMQuestion AnswerCommentsCode Status Discussion:* Reviewed Preferences * Full Code Date ActivatedDate WlaatojjjdcPzyurleg40/2/2024 10:12 PM06/12/2024 1:37 PM QuestionAnswerCommentsCode Status Discussion:* Reviewed Preferences * Full Code Date ActivatedDate InactivatedComments12/16/2017 9:58 AM12/16/2017 1:29 PMQuestion AnswerCommentsCode Status Discussion:* Not Discussed Care Teams Team MemberRelationshipSpecialtyStart DateEnd Date Jaydon [place] [address] [place] [address] PCP - GeneralFamily Practice04/12/25 Bisi Moy PsyD, LP [address] [place] [address] [address] [place] [address] 12/13/17 Felicitas Nelson PA [address] [place] [address] [address] [place] [address] Physician Assistant12/27/24
[2025-07-28 18:57] VITALS: BP 132/79; PULSE 79; RESP 18; TEMP 36.1; O2SAT 96; BMI 26.6
[2025-07-28 19:20] LABS: Appearance Urine Clear (Clear)
--- NOTE | 2025-07-28 21:15 | ED_ITS ---
HPI - General Adult General Date Seen: 07/28/25 Chief complaint: Urogenital Problems, Female Stated complaint: Bladder infection Time Seen by Provider: 07/28/25 20:45 History of Present Illness HPI narrative: 40 yo F who has a history of recurrent bladder infections and history of ESBL, also history of tobacco use, anxiety/depression presenting to the ER tonight with concerns for bladder infection over the past couple of weeks. She has been having urinary frequency, urgency, dysuria. 06/19-ER visit for fever. She had already had the diagnosis of urinary tract infection and left flank pain for a couple of weeks. She had already been in the local urgent care and had fosfomycin-2 doses. Hospitalized until 06/21. Treated with IV Zosyn in the hospital. He discharged on and given outpatient course of IV meropenem. 06/27, had a follow-up visit with primary care through the [facility] system, Dr. Goyal. Urine culture from that visit grew Klebsiella, 06/27- urine culture ? K.pneumoniae ? INT ? COLUMBA ? ?AMOX/CLAVULANATE ? ? ? S ? ? 8 ? ?AMP/SULBACTAM ?S ? ? 8 ? ?CEFAZOLIN ?NR ? ?2 2 ? ?CEFEPIME ? S ? ? <=0.12 ? ?CEFTAZIDIME ?S ? ? <=0.5 ? ?CEFTRIAXONE ?S ? ? <=0.25 ? ?CIPROFLOXACIN ?S ? ? <=0.06 ? ?GENTAMICIN ? S ? ? <=1 ? ?IMIPENEM ? S ? ? <=0.25 ? ?LEVOFLOXACIN ? S ? ? <=0.12 ? ?MEROPENEM ?S ? ? <=0.25 ? ?NITROFURANTOIN ? I ? ? 64 ? ?PIP/TAZOBACTAM ? S ? ? <=4 ? ?TRIMETHOPRIM/SULFA ? ? S ? ? <=20 WBC showed QBC 14.5, HGB 15.5 PLT 410. She was treated with a course of fosfomycin and for that infection. She has been and fist experiencing mild urinary symptoms for the past couple of weeks. Apparently after seeing an infectious disease through the [facility] (about 18 months ago) she was counseled to avoid coming in for mild symptoms. However tonight symptoms are worse with more intense dysuria and bladder pain. She is not experiencing fever or chills. She is not experiencing flank pain. She is not nauseous. No symptoms of systemic illness. She is pretty convinced she has another bladder infection. Knowing her history with ESBL E coli, she would like to get started on another course of meropenem. Related Data Home Medications ?Medication ?Instructions ?Recorded ?Confirmed albuterol sulfate 90 mcg/actuation 2 puff inhalation Q 4-6H wheezing 09/13/23 06/19/25 aerosol inhaler (Ventolin HFA) fluoxetine 40 mg capsule 40 mg PO QAM 06/20/25 Previous Rx's ?Medication ?Instructions ?Recorded Meropenem 1 gm 200 mls/hr IVPB Q8H 06/21/25 nicotine 21 mg/24 hr daily 1 patch transdermal Q24H #1 4 ea 06/21/25 transdermal patch Allergies Allergy/AdvReac Type Severity Reaction Status Date / Time ertapenem Allergy Severe Hives Verified 06/19/25 22:56 nitrofurantoin (From Allergy Mild hands and Verified 06/19/25 22:56 Macrobid) feet itchy and painful PFSH PFSH Medical History Right ovarian cyst ?N83.201 - Unspecified ovarian cyst, right side (ICD-10) Recurrent HSV (herpes simplex virus) ?B00.9 - Herpesviral infection, unspecified (ICD-10) Mild intermittent asthma ?J45.20 - Mild intermittent asthma, uncomplicated (ICD-10) Tobacco dependence ?F17.200 - Nicotine dependence, unspecified, uncomplicated (ICD-10) Anxiety and depression ?F41.9 - Anxiety disorder, unspecified (ICD-10) ?F32.A - Depression, unspecified (ICD-10) VITOR III (cervical intraepithelial neoplasia grade III) with severe dysplasia ?D06.9 - Carcinoma in situ of cervix, unspecified (ICD-10) Recurrent UTI ?N39.0 - Urinary tract infection, site not specified (ICD-10) Surgical History [place] teeth removed ?K08.409 - Partial loss of teeth, unspecified cause, unspecified class (ICD- 10) Hx of cholecystectomy ?Z90.49 - Acquired absence of other specified parts of digestive tract (ICD- 10) H/O LEEP ?Z98.890 - Other specified postprocedural states (ICD-10) Social History What is your current living situation?: I presently have a place to live Problems where you live: no known problems In the past 12 months, utilities in danger of being shut off: no In past 12 months, lack of transportation kept you from medical appts, meetings, work, or getting things needed for daily living: no In the past 12 mos, have been you worried that your food would run out before you had money to buy more?: never true In the past 12 mos, the food you bought just didn't last and you didn't have money to buy more?: never true Highest level of school completed/degree received: 10th grade Smoking Status: Current every day smoker What tobacco products do you use: cigarettes Smoking packs per day: 1 Smoking cigarettes per day: 20.0 Years smoked: 15 Smoking pack-years: 15.00 Do you use any of these nicotine containing products: None Second hand tobacco smoke exposure: Yes How often do you have a drink containing alcohol: never How often do you have six or more drinks on one occasion: Never AUDIT-C Alcohol total score: 0 Non-prescribed substance use: denies use Caffeine: No How often does anyone, including family, friends and others, physically hurt you : never How often does anyone, including family, friends and others, insult or talk down to you: never How often does anyone, including family, friends and others, threaten you with harm: never How often does anyone, including family, friends and others, scream or curse at you: never service: No Exam Narrative: Exam Narrative: Constitutional: Appears well-developed and well-nourished. Alert. Conversant. Non toxic. She has a friend attentively at her side. He does not introduce himself to me but he is polite. She is comfortable discussing her medical issues in front of him. HENT: Head: Atraumatic. Nose: Nose normal. Mouth/Throat: Oral mucosa is clear and moist. no trismus. Pharynx normal. Tonsils symmetric. No tonsillar enlargement, erythema, or exudate. Eyes: Conjunctivae normal. EOM normal. Pupils equal, round, and reactive to light. No scleral icterus. Neck: Normal range of motion. Neck supple. No tracheal deviation present. Cardiovascular: Normal rate, regular rhythm. No gallop. No friction rub. No murmur heard. Symmetric radial artery pulses Pulmonary/Chest: Effort normal. No stridor. No respiratory distress. No wheezes. No rales. No rhonchi . No tenderness. Abdominal: Soft. Bowel sounds normal. No distension. No mass. Mild suprapubic tenderness. No rebound. No guarding. No CVA tenderness. Musculoskeletal: RUE: Normal range of motion. No tenderness. No deformity LUE: Normal range of motion. No tenderness. No deformity RLE: Normal range of motion. No edema. No tenderness. No deformity LLE: Normal range of motion. No edema. No tenderness. No deformity Neurological: Alert and oriented to person, place, and time. Normal strength. CN II-VII intact. No sensory deficit. GCS eye subscore is 4. GCS verbal subscore is 5. GCS motor subscore is 6. Normal coordination Skin: Skin is warm and dry. No rash noted. No pallor. Normal capillary refill. Psychiatric: Normal mood. Normal affect. Const: Vital Signs, click to edit/add: Vital Signs - 24 hr 07/28/25 18:57 07/28/25 22:50 Temperature 97.0 F L 98.1 F Pulse Rate [Pulse Oximeter] 79 62 Respiratory Rate 18 18 Blood Pressure [Ri ght Upper Arm] 132/79 118/86 Pulse Oximetry 96 97 Oxygen Delivery Me thod Room Air Room Air Course Vital Signs Vital signs: Initial Vital Signs Temperature 97.0 F L 07/28/25 18:57 Temperature Source Temporal Artery Scan 07/28/25 18:57 Pulse Rate 79 07/28/25 18:57 Pulse Rhythm Regular 07/28/25 18:57 Respiratory Rate 18 07/28/25 18:57 Blood Pressure 132/79 07/28/25 18:57 Blood Pressure Mean 96 07/28/25 18:57 Blood Pressure Position Sitting 07/28/25 18:57 Pulse Oximetry 96 07/28/25 18:57 Oxygen Delivery Method Room Air 07/28/25 18:57 Vital Signs Temperature 97.0 F L 07/28/25 18:57 Pulse Rate 79 07/28/25 18:57 Respiratory Rate 18 07/28/25 18:57 Blood Pressure 132/79 07/28/25 18:57 Pulse Oximetry 96 07/28/25 18:57 Oxygen Delivery Method Room Air 07/28/25 18:57 Temperature 98.1 F 07/28/25 22:50 Pulse Rate 62 07/28/25 22:50 Respiratory Rate 18 07/28/25 22:50 Blood Pressure 118/86 07/28/25 22:50 Pulse Oximetry 97 07/28/25 22:50 Oxygen Delivery Method Room Air 07/28/25 22:50 Medications Administered Medications: Discontinued Medications Generic Name Dose Route Start Last Admin Trade Name Freq PRN Reason Stop Dose Admin Meropenem 1 gm/ Sodium 100 mls @ 200 mls/hr 07/28/25 21:39 07/28/25 23:04 Chloride IVPB 07/28/25 22:08 Infused ONCE ONE Infusion Medical Decision Making [facility] Narrative Medical decision making narrative: This is a 40-year-old female with a calms plaques medical history including frequent UTIs and multi drug resistant organisms, particularly ESBL E coli causing with on infections. She returns to the ER today with urinary symptoms of suprapubic pain, dysuria, urgency. Fortunately she is not having fever, vomiting, flank pain, or other symptoms of active pyelonephritis or obstructing kidney stone. Laboratory workup shows normal white count, normal kidney function. Urinalysis is clearly abnormal with leukocyte esterase, pyuria, positive nitrite. I think this does correlate with her symptoms and does indicate the presence of an active, recurrent, infection. Discussed options for management including expectant management awaiting results of culture to guide antibiotic therapy. Although she is not currently septic, risk of delaying treatment will be that she could develop worsening illness. We also discussed that we can start her empirically on antibiotics. At this point she feels (and I would tend to agree) that putting her on antibiotic pills would likely not effective, given her history of ESBL. Therefore will start her on meropenem. She says that she had gone through a course of outpatient meropenem last month after her last UTI and although it is inconvenient, she willing to come back to the hospital 3 times daily to get her doses. I will order meropenem 1 g t.i.d. for the next 7 days. Hopefully, urine culture will come back growing an alternative pathogenic can be treated with oral antibiotics. If so I would certainly stop the meropenem infusions and switch to any available oral alternative. Precautions for return to the ER reviewed. Lab Data Labs: Lab Results 07/28/25 07/28/25 Range/Units 19:04 22:33 WBC 9.90 (4.50-11.00) K/uL RBC 3.93 L (4.00-5.20) m/uL Hgb 12.9 (12.0-16.0) gm/dL Hct 36.8 (33.0-51.0) % MCV 94 (80-100) fL MCH 33 (26-34) pg MCHC 35 (32-36) gm/dL RDW Coeff of Abhay 12.3 (11.5-15.5) % Plt Count 327 (140-440) K/uL Neut % (Auto) 50.4 (42.0-72.0) % Lymph % (Auto) 41.2 (20-44) % Hodgeman % (Auto) 6.5 (0.0-11.0) % Eos % (Auto) 1.6 (0.0-7.0) % Baso % (Auto) 0.1 (0.0-3.0) % Neut # (Auto) 4.99 (1.7-7.0) K/uL Lymph # (Auto) 4.08 H (0.90-2.90) K/uL Hodgeman # (Auto) 0.60 (0.00-0.90) K/UL Eos # (Auto) 0.16 (0.00-0.50) K/uL Baso # (Auto) 0.01 (0.00-0.30) K/uL Abs Immat Gran (auto) 0.02 (0.00-0.30) K/uL Imm/Tot Granulo (auto) 0.2 % Sodium 136 (135-149) mmol/L Potassium 3.6 (3.6-5.1) mmol/L Chloride 108 (96-114) mmol/L Carbon Dioxide 22 (20-32) mmol/L Anion Gap 6 L (7-15) mEq/L BUN 10 (5-24) mg/dL Creatinine 0.5 (0.5-1.5) mg/dL Estimated Creat Clear 143.99 Estimated GFR 121 ml/min Glucose 90 (60-115) mg/dL Lactate 1.2 (0.5-1.9) mmol/L Calcium 7.9 L (8.4-10.6) mg/dL Urine Color Yellow (Yellow) Urine Appearance Clear (Clear) Urine pH 7.0 (5.0-8.5) Ur Specific [place] 1.020 (1.000-1.030) Urine Protein Negative (Negative) Urine Glucose (UA) Negative (Negative) Urine Ketones Negative (Negative) Urine Blood Trace-lysed A (Negative) Urine Nitrite Positive A (Negative) Urine Bilirubin Negative (Negative) Urine Urobilinogen 0.2 (0.2-1.0) Ur Leukocyte Esterase 3+ A (Negative) Urine RBC 0-2 (0-2) Urine WBC 10-25 A (0-5) Ur Squamous Epith Cells Few (None-Few) Urine Bacteria Many A (None) Discharge Plan Discharge Clinical Impression: UTI (urinary tract infection) Patient Disposition: Home, Self-Care Condition: Stable Instructions: Urinary Tract Infection in Women (DC) Additional Instructions: As we discussed, your urine sample shows signs of urinary tract infection. Who urine culture from this infection is currently pending. We have started you on IV krtjkdknyal-arjuwptoh-oqgsk. Please return to the hospital tomorrow morning for your next dose of meropenem. You do not have to check into the ER to be seen again is in ER patient. You can check in through the ER lobby and will be directed to the medical surgery nursing floor to receive another dose of IV antibiotics. Return to the hospital 3 times daily for the next 7 days to complete your course of meropenem. If your culture grows a straight a bacteria that is treatable with an oral antibiotic, we can discontinue your IV and heavy switch to pills. If you have worsening of your condition, return to the ER to be read checked in and re-evaluated right away. Prescriptions: No Action albuterol sulfate [Ventolin HFA] 90 mcg/actuation HFA aerosol inhaler 2 puff INHALATION Q4-6H fluoxetine 40 mg capsule 40 mg PO QAM nicotine 21 mg/24 hr Patch 24 Hour 1 patch transdermal Q24H Qty: 14 0RF Meropenem 1 GM 0.9 % SODIUM CHLORIDE Mini-bag 100 ML 200 mls/hr IVPB Q8H through 06/23/25 Ordered By: Marjorie Barajas MD Last Taken: Unknown Follow Up/Referrals: Sary Goyal MD [Primary Care Provider, Infectious Disease] Stand Alone Forms: Fracture Info Instructions
[2025-07-28 22:35] LABS: Lactate* 1.2 mmol/L (0.5-1.9)
[2025-07-28] MEDS: MEROPENEM 1 GM in 0.9 % SODIUM CHLORIDE Mini-bag 100 ML IVPB (22:37)
[2025-07-28 22:50] VITALS: BP 118/86; PULSE 62; RESP 18; TEMP 36.7; O2SAT 97
[2025-07-28 22:52] LABS: Chloride* 108 mmol/L (96-114); Potassium* 3.6 mmol/L (3.6-5.1); Sodium* 136 mmol/L (135-149)
[2025-07-28 22:55] LABS: Anion Gap 6 mEq/L (7-15); Blood Urea Nitrogen* 10 mg/dL (5-24); Carbon Dioxide* 22 mmol/L (20-32); Creatinine* 0.5 mg/dL (0.5-1.5); Est. Creatinine Clearance* 143.99; Estimated Glomerular Filt Rate 121 ml/min
[2025-07-28 22:56] LABS: Calcium* 7.9 mg/dL (8.4-10.6); Glucose* 90 mg/dL (60-115)
[2025-07-28 22:57] LABS: Hematocrit* 36.8 % (33.0-51.0); Hemoglobin* 12.9 gm/dL (12.0-16.0); Immature Granulocytes Abs Auto 0.02 K/uL (0.00-0.30); Immature Granulocytes Pct Auto 0.2 %; Lymphocytes Absolute Auto 4.08 K/uL (0.90-2.90); Mean Corpuscular HGB Conc 35 gm/dL (32-36); Mean Corpuscular Hemoglobin 33 pg (26-34); Mean Corpuscular Volume 94 fL (80-100); RDW Coefficient of Variation % 12.3 % (11.5-15.5); Red Blood Count* 3.93 m/uL (4.00-5.20); White Blood Count* 9.90 K/uL (4.50-11.00)
[2025-07-28 23:02] LABS: Slide Review Reflex No
== END 2025-07-28 23:26 | disposition home or self-care (01) ==
PROVIDERS: Emergency Provider Emergency Medicine; PCP Internal Medicine Infectious Disease
DX: N39.0 Urinary tract infection, site not specified (principal); F17.210 Nicotine dependence, cigarettes, uncomplicated; Z87.440 Personal history of urinary (tract) infections
CPT/HCPCS: 36415; 80048; 81001; 83605; 85025; 87086; 96365; 99283; 99284; J2185